=== PATIENT | female | born 1985 | race Two or more races ===

== ENCOUNTER 2020-07-08 21:32 | Emergency (ER) | payer OTHER, MEDICAID, SELFPAY ==
--- NOTE | ~2020-07-08 | XR_ITS ---
EXAMINATION: XR ANKLE, RIGHT CLINICAL INFORMATION: Rule out fracture COMPARISON: None TECHNIQUE: AP, lateral, and mortise views of the right ankle. FINDINGS: No fracture or dislocation seen. The ankle mortise is intact. Medial soft tissue swelling. Small plantar calcaneal osteophyte. Prominent Stieda process. XR/XR ankle RT 2V IMPRESSION: Medial soft tissue swelling but no acute osseous abnormality.
[2020-07-08 22:05] VITALS: BP 120/64; PULSE 92; RESP 18; TEMP 37.2; O2SAT 100; BMI 22.6
--- NOTE | 2020-07-08 22:59 | ED_ITS ---
HPI - Extremity Injury (Lower) General Chief Complaint: Extremity Injury, Lower Stated Complaint: ankle inj Time Seen by Provider: 07/08/20 22:57 Source: patient Mode of arrival: ambulatory Limitations: no limitations History of Present Illness HPI Narrative: 35-year-old healthy female presenting to the ED with right ankle injury. Patient states she was walking outside when she slipped and twisted her right ankle. Since has had severe pain. Denies any head injury or other trauma. Denies any medications prior to arrival. States she was able to ambulate into the ED with severe pain. Due to concern she felt she needed to be seen. complaint: ankle injury Related Data Allergies Allergy/AdvReac Type Severity Reaction Status Date / Time No Known Allergies Allergy Verified 07/08/20 22:58 Review of Systems Review of Systems: Constitutional : No Weight loss, No Fever, No Chills, No Night Sweats, No Fatigue, No Malaise ENT/Mouth : No Hearing loss, No Ear Pain, No Nasal Congestion, No Sinus Pain, No Hoarseness, No sore throat, No Rhinorrhea, No Swallowing Difficulty Eyes: No Eye Pain, No Swelling, No Redness, No Foreign Body, No Discharge, No Vision Changes Cardiovascular : No Chest Pain, No SOB, No Dyspnea on Exertion, No Orthopnea, No Edema, No Palpitations Respiratory : No Cough, No Sputum, No Wheezing, No Smoke Exposure, No Dyspnea Gastrointestinal : No Nausea, No Vomiting, No Diarrhea, No Constipation, No abdominal Pain, No Hematochezia, No Melena Genitourinary : no irregular bleeding, No Dysuria, No Urinary Frequency, No Hematuria, No Urinary Incontinence, No Urgency, No Flank Pain, No Urinary Flow Changes, No Hesitancy Musculoskeletal : right ankle pain, swelling Skin : No Skin Lesions, No rash Neuro : No Weakness, No Numbness, No Paresthesias, No Loss of Consciousness, No Dizziness, No Headache Psych : No Anxiety/Panic, No Depression, No SI/HI/AH/VH, No Social Issues, Heme/Lymph: No Bruising, No Bleeding,No Lymphadenopathy Endocrine : No Polyuria, No Polydipsia, No Temperature Intolerance [facility] Past Medical History Attestation statement: The following information was validated with the patient. Source: old records reviewed and nursing notes reviewed Social History Social History Advance Directives: No Advance Directives Information Provided: No Patient : No Physical Exam Vital Signs: Vital Signs: Last Vital Signs Temp 99.0 F 07/08/20 22:05 Pulse 92 07/08/20 22:05 Resp 18 07/08/20 22:05 BP 120/64 07/08/20 22:05 Pulse Ox 100 07/08/20 22:05 Body Mass Index 22.6 vital signs have been reviewed as normal and appeared to be correct. Blood pressure normal. Heart rate normal. Respiration rate normal. Temperature normal. Oxygen saturation normal. Appearance: Alert. Oriented X3. Mild acute distress. Head: Normal external exam. Normocephalic. Atraumatic. No Keith signs noted. No raccoon eyes noted Eyes: PERRLA. EOMI. Conjunctiva and sclera normal. Eyelids normal. ENT: Moist mucous membranes. No trismus noted. No drooling noted. No muffled voice noted. Neck: Normal inspection. Neck supple. FROM. No meningeal signs. CVS: Pulses normal throughout. Respiratory: No respiratory distress. Painless inspiration. No accessory muscle usage noted Abdomen: Soft and nontender Back: No CVA tenderness. Full range of motion noted. Skin: Skin warm and dry. Normal skin color. Normal skin turgor. No rashes/lesions/lacerations noted. Extremities: Patient with tenderness to the right lateral malleolus with mild edema no overlying erythema or ecchymosis. Good distal pulse. Good capillary refill. No tenderness to the right anterior posterior calf. Normal left lower extremity. Neuro: Oriented X 3. No motor deficit. No sensory deficit. MDM - Extremity Injury (Lower) [facility] Narrative Medical decision making narrative: Patient's vital signs are stable and she is afebrile. Patient presenting in the emergency department with right ankle injury. X-ray obtained in triage without evidence of fracture dislocation. Will place ankle and Renzo wrap give crutches for support and discharged with close outpatient follow-up. Patient comfortable with this plan. Will medicate with Motrin and Tylenol. Will discharge home. No other signs of secondary injury or trauma. Patient is neurovascularly intact. Medical Records Attestation: I reviewed the patient's medical records. Lab Data Attestation: I reviewed the patient's lab results. Discharge Plan Discharge Clinical Impression: Ankle sprain and strain Patient Disposition: Home, Self-Care Instructions: Ankle Sprain (ED) Additional Instructions: You were seen in the emergency department for right ankle injury an x-ray was taken without evidence of fracture. You likely have a severe sprain use crutches as needed for support use Renzo wrap to help with comfort. Continue Motrin and Tylenol for pain control. Follow-up with your doctor in the next 2-3 days if pain persists. Referrals: Physician,Unknown [Primary Care Provider] - 2 days (your pcp) Stand Alone Forms: Work/School Release Print Language: Portuguese
[2020-07-08] MEDS: Acetaminophen 325 MG TABLET 650 MG PO (23:17)
[2020-07-08] MEDS: Ibuprofen 600 MG TABLET PO (23:17)
== END 2020-07-08 23:36 | disposition home or self-care (01) ==
PROVIDERS: Emergency Provider Student in an Organized Health Care Education/Training Program
DX: S93.401A Sprain of unspecified ligament of right ankle, initial encounter (principal); M25.571 Pain in right ankle and joints of right foot; X50.1XXA Overexertion from prolonged static or awkward postures, initial encounter; Y93.9 Activity, unspecified; Y92.9 Unspecified place or not applicable; Y99.9 Unspecified external cause status
CPT/HCPCS: 73600; 99283

== ENCOUNTER 2021-04-17 14:43 | Emergency (ER) | payer MEDICAID, SELFPAY ==
--- NOTE | ~2021-04-17 | US_ITS ---
EXAMINATION: US ABDOMEN LIMITED CLINICAL INFORMATION: Right upper quadrant, CVA, and umbilical tenderness COMPARISON: None TECHNIQUE: Real-time imaging of the right upper quadrant abdominal viscera. FINDINGS: PANCREAS: Normal. LIVER: Normal. The liver is normal in size. The liver contour is normal. Parenchymal echogenicity is normal. No focal hepatic lesion. There is no intrahepatic biliary duct dilatation seen. GALLBLADDER: Echogenic bile or sludge is seen dependently in the gallbladder. No shadowing gallstones. No gallbladder wall thickening or pericholecystic fluid. No reported sonographic Larsen's sign. COMMON BILE DUCT: Normal in caliber measuring 0.2 cm in diameter. RIGHT KIDNEY: There is mild hydronephrosis with dilation of the right proximal ureter and renal pelvis but no calyceal dilationNo renal calculi or focal parenchymal lesions. The kidney measures 12.2 cm in maximum dimension. FREE FLUID: None. US/US abdomen limited IMPRESSION: There is mild right hydronephrosis with dilation of the right proximal ureter and right renal pelvis but no calyceal dilation. No calculi seen but a nonobstructing distal ureteral calculus could give this appearance. Consider urinalysis and correlation with CT as clinically indicated.
--- NOTE | ~2021-04-17 | CT_ITS ---
EXAMINATION: CT ABDOMEN AND PELVIS WITHOUT CONTRAST CLINICAL INFORMATION: Abdominal pain with hydronephrosis on ultrasound COMPARISON: None TECHNIQUE: Multidetector volumetric imaging was performed from the superior aspect of the liver through the pubic symphysis. Sagittal and coronal reformatted images were obtained on the technologist's workstation. This CT examination was performed using dose optimization techniques as appropriate, variously including the following: *Automated exposure control *Adjustment of mA and/or kV according to patient size (this includes techniques or standardized protocols for targeted exams where dose is matched to indication/reason for exam; i.e. extremities or head) *Use of iterative reconstruction technique DLP: 484 mGy-cm FINDINGS: LUNG BASES: The visualized lung bases are unremarkable. LIVER, GALLBLADDER, AND BILIARY TREE: The liver is normal in size, shape, and attenuation. No focal hepatic lesion or biliary ductal dilatation is present. The gallbladder is unremarkable with no evidence of radiopaque gallstones, gallbladder wall thickening, or obvious pericholecystic inflammatory changes. PANCREAS: Unremarkable. SPLEEN: Unremarkable. ADRENAL GLANDS: Unremarkable. KIDNEYS AND URETERS: The right kidney appears unremarkable. No hydronephrosis is seen. The right ureter is not dilated. No stones are seen overlying the course of the right ureter. In the left kidney, 4 calculi are seen to with the extreme lower pole which are punctate measuring 1 mm in size each. And 2 in the midpole measuring 2 and 3 mm in size. No left-sided hydronephrosis is seen. The left ureter is not dilated. No renal masses are detected. BLADDER: Unremarkable. GASTROINTESTINAL TRACT: There is an enteric anastomosis in the right lower quadrant and the patient may be status post partial right colectomy. Please correlate with surgical history. The small and large bowel are otherwise unremarkable. ABDOMINAL WALL: No significant hernia is appreciated. LYMPH NODES: Normal. VASCULAR: Unremarkable. PELVIC VISCERA: An anteverted uterus is present. An abnormal adnexal mass is not seen. No free fluid is seen. OSSEOUS STRUCTURES: Unremarkable. CT/CT abdomen pelvis wo con IMPRESSION: No hydronephrosis is present on either side. There are nonobstructing left intrarenal calculi. No right-sided renal calculi are seen. Fleischner guidelines were followed.
[2021-04-17 14:57] VITALS: BP 117/66; PULSE 77; RESP 18; TEMP 37.1; O2SAT 99; BMI 23.2
[2021-04-17 15:18] LABS: Appearance Urine HAZY; Color Urine YELLOW; Glucose Urine UA NEG (NEG); Leukocyte Esterase Urine NEG (NEG); Nitrite Urine NEG (NEG); Specific Gravity - Urine >= 1.030 (1.005-1.025); UPreg QC Valid YES; Urine Blood NEG (NEG); Urine Ketones 40 MG/DL (NEG); Urine Pregnancy NEGATIVE (NEGATIVE); Urine Protein NEG (NEG-TRACE)
[2021-04-17 15:27] LABS: Anion Gap 13 (12-20); Blood Urea Nitrogen 17 mg/dL (9-16); Calcium 9.4 mg/dL (8.4-10.2); Carbon Dioxide 22 mmol/L (22-29); Chloride 108 mmol/L (96-108); Creatinine Clr Calc Pharmacy 95.8; Estimated Glomerular Filt Rate > 60; Glucose Random 90 mg/dL (60-115); Potassium 4.1 mmol/L (3.3-5.1); Sodium 139 mmol/L (135-145)
[2021-04-17 15:31] LABS: COVID-19 Test Negative (Negative)
--- NOTE | 2021-04-17 15:53 | ED.NAVMDI ---
HPI - Nausea/Vomiting/Diarrhea General Chief complaint: Nausea/Vomiting/Diarrhea Stated complaint: abd pain Time Seen by Provider: 04/17/21 17:09 Source: patient Mode of arrival: ambulatory Limitations: no limitations History of Present Illness HPI Narrative: 36-year-old female presents with abdominal pain nausea and vomiting that started this morning. Pain started at the umbilicus and migrated over to the right side. MD elicited complaint: nausea, vomiting, abdominal pain and flank pain Pertinent past history: abdominal surgery (Appendectomy) Onset (ago): day(s) (1) Description of vomiting: watery Associated nausea: Yes Associated abdominal pain: Yes Location of pain: periumbilical and R flank Radiation: does not radiate Pain consistency: colicky Severity: severe Pain scale (0-10): 9 Quality: stabbing and aching Exacerbating factors: movement and exertion Relieving factors: none Associated symptoms: nausea/vomiting Related Data Previous Rx's Medication Instructions Recorded oxycodone 5 mg tablet 5 mg PO Q8H PRN #7 tab 04/17/21 tamsulosin 0.4 mg capsule (Flomax) 0.4 mg PO DAILY 14 Days #14 cap 04/17/21 Allergies Allergy/AdvReac Type Severity Reaction Status Date / Time No Known Allergies Allergy Verified 07/08/20 22:58 Review of Systems Review of Systems: Constitutional: No Fever, No Chills ENT/Mouth: No sore throat Eyes: No Eye Pain, No Swelling, No Redness Cardiovascular: No Chest Pain, No SOB Respiratory: No Cough, No Sputum, No Wheezing Gastrointestinal: positive Nausea, positive Vomiting, No Diarrhea, positive abdominal pain Genitourinary: No Dysuria, now urinary frequency, now Hematuria, positive Flank Pain, now hesitancy Musculoskeletal: No joint pain, No Myalgias Skin: No Skin Lesions, No rash Neuro: No Weakness, No Numbness, No Headache Psych: No Anxiety/Panic, No Depression Heme/Lymph: No Bruising, No Lymphadenopathy Endocrine: No Polyuria, No Polydipsia Yes all other systems are reviewed and are negative Gastrointestinal: Gastrointestinal: Reports nausea PMFSH Past Medical History Attestation statement: The following information was validated with the patient. Source: old records reviewed Social History Social History Advance Directives: No Advance Directives Information Provided: No Physical Exam Vital Signs: Vital Signs: Last Vital Signs Temp 98.7 F 04/17/21 18:22 Pulse 93 04/17/21 20:00 Resp 15 04/17/21 20:00 BP 110/50 L 04/17/21 20:00 Pulse Ox 98 04/17/21 20:00 BMI result Body Mass Index 23.2 Appearance: Alert. Oriented X3. Moderate distress. Eyes: Pupils equal, round and reactive to light. EOMI. Sclera nonicteric. ENT: Pharynx normal. Dry mucous membranes. Neck: Normal inspection. Neck supple. CVS: Normal heart rate and rhythm. Pulses normal. Respiratory: No respiratory distress. Breath sounds normal. Abdomen: Soft and right upper quadrant, and umbilical tenderness. Positive Larsen's. Negative psoas. No rigidity or distention. Skin: Skin warm and dry. Normal skin color. Normal skin turgor. Extremities: No lower extremity edema. Gait well-balanced well coordinated. Neuro: No motor deficit. No sensory deficit. Cranial nerves 2-12 intact. Course Course Course Narrative: 36-year-old female presents with 1 day of abdominal pain, started at the umbilicus and radiated to the right upper quadrant and to her back. Physical exam indicates positive Larsen's. Patient has had appendectomy in the past. No rebound or rigidity. Plan of care is for abdominal ultrasound to rule out cholelithiasis, cholecystitis. Labs are drawn in the emergency department waiting room, CBC added to the lab panel. 17:50 abdominal ultrasound indicates hydronephrosis within dilated ureter, radiology recommending CT scan for further imaging. Discussed plan with patient, patient agrees to plan for CT scan. Patient's pain is well controlled at this time. CT scan indicates left-sided renal stones. Does not show hydro, pyelo, or any other concerning symptoms. Plan of care is to treat with Flomax, pain management, to have patient follow-up with Urology as an outpatient. Patient verbalized understanding of and agrees to plan of care discharge home. Verbalized understanding of signs and symptoms indicating need for emergent intervention MDM - Nausea/Vomiting/Diarrhea MDM Narrative Medical decision making narrative: Pyelonephritis, nephrolithiasis, colitis Differential Diagnosis Differential diagnosis: Likely dehydration Medical Records Attestation: I reviewed the patient's medical records. Lab Data Attestation: I reviewed the patient's lab results. Result diagrams: 04/17/21 16:09 04/17/21 15:08 Labs: Lab Results 04/17/21 04/17/21 04/17/21 Range/Units 15:08 15:08 15:09 WBC (4.8-10.8) X10*3/uL RBC (4.20-5.50) X10*6/uL Hgb (12.0-16.0) g/dl Hct (37.0-47.0) % MCV (80.0-98.0) fL MCH (27.0-33.0) pg MCHC (31.0-35.0) g/dl RDW (11.0-16.0) % Plt Count (160-400) X10*3/uL MPV (9.4-12.3) fL Immature Gran % (Auto) (0.0-0.4) % Neut % (Auto) (45-73) % Lymph % (Auto) (20-40) % [place] % (Auto) (2-11) % Eos % (Auto) (0-4) % Baso % (Auto) (0-2) % Lymph # (Auto) (1.2-4.9) X10*3/uL [place] # (Auto) (0.1-1.2) X10*3/uL Eos # (Auto) (0.0-0.4) X10*3/uL Baso # (Auto) (0.0-0.2) X10*3/uL Abs Immat Gran (auto) (0.00-0.03) X10*3/uL Absolute Neuts (auto) (2.0-8.3) x10*3/uL Absolute Nucleated RBC (0.0-0.012) X10*3/uL Nucleated RBC % (auto) (0.0-0.2) /100WBC Smear Tech's Comments Sodium 139 (135-145) mmol/L Potassium 4.1 (3.3-5.1) mmol/L Chloride 108 (96-108) mmol/L Carbon Dioxide 22 (22-29) mmol/L Anion Gap 13 (12-20) BUN 17 H (9-16) mg/dL Creatinine 0.76 (0.5-1.4) mg/dL Estim Creat Clear Calc 95.8 Estimated GFR > 60 Random Glucose 90 (60-115) mg/dL Calcium 9.4 (8.4-10.2) mg/dL Total Bilirubin 0.9 (0.0-1.0) mg/dL Direct Bilirubin 0.3 (0.0-0.5) mg/dL AST 16 (5-31) U/L ALT 6 (0-31) U/L Alkaline Phosphatase 63 (39-117) U/L Total Protein 7.4 (6.5-8.0) g/dL Albumin 4.6 (3.5-5.0) g/dL Lipase 23 (8-78) U/L Urine Color YELLOW Urine Appearance HAZY Urine pH 6.0 (5.0-8.0) Ur Specific [place] >= 1.030 H (1.005-1.025) Urine Protein NEG (NEG-TRACE) MG/DL Urine Glucose (UA) NEG (NEG) MG/DL Urine Ketones 40 (NEG) MG/DL Urine Blood NEG (NEG) Urine Nitrite NEG (NEG) Ur Leukocyte Esterase NEG (NEG) Urine Test (NEGATIVE) COVID-19 (JOSE) Negative (Negative) COVID-19 Clin Com See Note 04/17/21 04/17/21 Range/Units 15:09 16:09 WBC 11.5 H (4.8-10.8) X10*3/uL RBC 4.17 L (4.20-5.50) X10*6/uL Hgb 13.0 (12.0-16.0) g/dl Hct 38.7 (37.0-47.0) % MCV 92.8 (80.0-98.0) fL MCH 31.2 (27.0-33.0) pg MCHC 33.6 (31.0-35.0) g/dl RDW 12.1 (11.0-16.0) % Plt Count 255 (160-400) X10*3/uL MPV 9.8 (9.4-12.3) fL Immature Gran % (Auto) 0.3 (0.0-0.4) % Neut % (Auto) 90.7 H (45-73) % Lymph % (Auto) 5.1 L (20-40) % [place] % (Auto) 3.5 (2-11) % Eos % (Auto) 0.3 (0-4) % Baso % (Auto) 0.1 (0-2) % Lymph # (Auto) 0.6 L (1.2-4.9) X10*3/uL [place] # (Auto) 0.4 (0.1-1.2) X10*3/uL Eos # (Auto) 0.0 (0.0-0.4) X10*3/uL Baso # (Auto) 0.0 (0.0-0.2) X10*3/uL Abs Immat Gran (auto) 0.03 (0.00-0.03) X10*3/uL Absolute Neuts (auto) 10.5 H (2.0-8.3) x10*3/uL Absolute Nucleated RBC 0.000 (0.0-0.012) X10*3/uL Nucleated RBC % (auto) 0.0 (0.0-0.2) /100WBC Smear Tech's Comments VERIFIED Sodium (135-145) mmol/L Potassium (3.3-5.1) mmol/L Chloride (96-108) mmol/L Carbon Dioxide (22-29) mmol/L Anion Gap (12-20) BUN (9-16) mg/dL Creatinine (0.5-1.4) mg/dL Estim Creat Clear Calc Estimated GFR Random Glucose (60-115) mg/dL Calcium (8.4-10.2) mg/dL Total Bilirubin (0.0-1.0) mg/dL Direct Bilirubin (0.0-0.5) mg/dL AST (5-31) U/L ALT (0-31) U/L Alkaline Phosphatase (39-117) U/L Total Protein (6.5-8.0) g/dL Albumin (3.5-5.0) g/dL Lipase (8-78) U/L Urine Color Urine Appearance Urine pH (5.0-8.0) Ur Specific [place] (1.005-1.025) Urine Protein (NEG-TRACE) MG/DL Urine Glucose (UA) (NEG) MG/DL Urine Ketones (NEG) MG/DL Urine Blood (NEG) Urine Nitrite (NEG) Ur Leukocyte Esterase (NEG) Urine Test NEGATIVE (NEGATIVE) COVID-19 (JOSE) (Negative) COVID-19 Clin Com Imaging Data Abdominal U/S: Attestation: I personally reviewed and interpreted this imaging study as follows: Radiologist's impression: EXAMINATION: US ABDOMEN LIMITED CLINICAL INFORMATION: Right upper quadrant, CVA, and umbilical tenderness COMPARISON: None TECHNIQUE: Real-time imaging of the right upper quadrant abdominal viscera. FINDINGS: PANCREAS: Normal. LIVER: Normal. The liver is normal in size. The liver contour is normal. Parenchymal echogenicity is normal. No focal hepatic lesion. There is no intrahepatic biliary duct dilatation seen. GALLBLADDER: Echogenic bile or sludge is seen dependently in the gallbladder. No shadowing gallstones. No gallbladder wall thickening or pericholecystic fluid. No reported sonographic Larsen's sign. COMMON BILE DUCT: Normal in caliber measuring 0.2 cm in diameter. RIGHT KIDNEY: There is mild hydronephrosis with dilation of the right proximal ureter and renal pelvis but no calyceal dilationNo renal calculi or focal parenchymal lesions. The kidney measures 12.2 cm in maximum dimension. FREE FLUID: None. US/US abdomen limited IMPRESSION: There is mild right hydronephrosis with dilation of the right proximal ureter and right renal pelvis but no calyceal dilation. No calculi seen but a nonobstructing distal ureteral calculus could give this appearance. ? Consider urinalysis and correlation with CT as clinically indicated. Discharge Plan Discharge Clinical Impression: Kidney stone Patient Disposition: Home, Self-Care Instructions: Kidney Stones (ED) Additional Instructions: You were evaluated for abdominal and flank pain. CT scan of abdomen and pelvis indicates kidney stone on the left side. Please take Flomax daily for the next 14 days. I prescribed oxycodone. This medication is a narcotic and has high risk for addiction and abuse. Do not drive operate machinery while taking. This medication can delay reaction time, increased risk for, cause drowsiness and constipation. Please use MiraLax and her Colace to help prevent constipation. Follow-up urology as needed. I provided you with a referral to Dr. Abbott. You may also follow-up with primary care physician. Thank you for choosing this emergency department for evaluation. Please follow-up with primary care physician as needed. Return to the emergency department for any new, concerning, or worsening symptoms. Prescriptions: New oxycodone 5 mg tablet 5 mg PO Q8H PRN (Reason: pain) Qty: 7 0RF Rx Instructions: Left kidney stones tamsulosin [Flomax] 0.4 mg capsule 0.4 mg PO DAILY 14 Days Qty: 14 0RF Referrals: Renzo Abbott MD [Physician] - 2 days (Left-sided kidney stones) Stand Alone Forms: Dental Emergency Numbers, Work/School Release Interventions: ED Discharge Assessment Last Done: 04/17/21 21:40 Discharge Date/Time: 04/17/21 21:57
[2021-04-17 16:18] VITALS: BP 118/64; PULSE 78; RESP 16; O2SAT 97
[2021-04-17] MEDS: ondansetron HCL 4 MG/2 ML VIAL IVPUSH (16:19)
[2021-04-17] MEDS: 0.9 % Sodium Chloride 1,000 ML 999 ML IVCONT ×2 (16:19→21:21)
[2021-04-17] MEDS: Morphine Sulfate 2 MG/ML CARTRIDGE IVPUSH (16:19)
[2021-04-17 16:22] LABS: Basophils Percent Auto 0.1 % (0-2); Eosinophils Percent Auto 0.3 % (0-4); Hematocrit 38.7 % (37.0-47.0); Imm Gran Abs Auto 0.03 X10*3/uL (0.00-0.03); Imm Gran Pct Auto 0.3 % (0.0-0.4); Lymphocytes Absolute Auto 0.6 X10*3/uL (1.2-4.9); Lymphocytes Percent Auto 5.1 % (20-40); MANUAL DIFF FLAG SCAN; Mean Corpuscular HGB Conc 33.6 g/dl (31.0-35.0); Mean Corpuscular Hemoglobin 31.2 pg (27.0-33.0); Mean Corpuscular Volume 92.8 fL (80.0-98.0); Mean Platelet Volume 9.8 fL (9.4-12.3); Monocytes Absolute Auto 0.4 X10*3/uL (0.1-1.2); Monocytes Percent Auto 3.5 % (2-11); Neutrophils Absolute Auto 10.5 x10*3/uL (2.0-8.3); Neutrophils Percent Auto 90.7 % (45-73); Platelet Count 255 X10*3/uL (160-400); Red Blood Count 4.17 X10*6/uL (4.20-5.50); Red Cell Distribution Width 12.1 % (11.0-16.0); SCAN SMEAR FLAG 1; White Blood Count 11.5 X10*3/uL (4.8-10.8)
[2021-04-17 16:45] LABS: SLIDE REVIEW VERIFIED
[2021-04-17 18:21] LABS: Alanine Aminotransferase 6 U/L (0-31); Albumin Level 4.6 g/dL (3.5-5.0); Alkaline Phosphatase 63 U/L (39-117); Aspartate Amino Transferase 16 U/L (5-31); Bilirubin Direct 0.3 mg/dL (0.0-0.5); Bilirubin Total 0.9 mg/dL (0.0-1.0); Lipase 23 U/L (8-78); Total Protein 7.4 g/dL (6.5-8.0)
[2021-04-17 18:22] VITALS: BP 104/54; PULSE 78; RESP 18; TEMP 37.1; O2SAT 98
[2021-04-17 20:00] VITALS: BP 110/50; PULSE 93; RESP 15; O2SAT 98
[2021-04-17] MEDS: Morphine Sulfate 4 MG/ML CARTRIDGE IVPUSH (21:21)
== END 2021-04-17 21:57 | disposition home or self-care (01) ==
PROVIDERS: Nurse Practitioner Family; Emergency Provider Internal Medicine
DX: N20.0 Calculus of kidney (principal); Z20.822 Contact with and (suspected) exposure to COVID-19
CPT/HCPCS: 36415; 74176; 76705; 80048; 80076; 81003; 81025; 83690; 85025; 87635; 96361; 96374; 96375; 96376; 99284; J2270; J2405

== ENCOUNTER 2021-09-13 11:07 | Emergency (ER) | payer MEDICAID, SELFPAY ==
--- NOTE | ~2021-09-13 | CT_ITS ---
EXAMINATION: CT HEAD WITHOUT CONTRAST CLINICAL INFORMATION: Headache COMPARISON: None. TECHNIQUE: Contiguous axial imaging was performed from the skull base to vertex without intravenous contrast. This CT examination was performed using dose optimization techniques as appropriate, variously including the following: * Automated exposure control * Adjustment of mA and/or kV according to patient size (this includes techniques or standardized protocols for targeted exams where dose is matched to indication/reason for exam; i.e. extremities or head) Use of iterative reconstruction technique DLP: 770 mGy-cm. FINDINGS: There is no evidence of acute intracranial hemorrhage or territorial infarction. No abnormal mass effect or midline shift is seen. Mir to white matter differentiation is well preserved. No extra-axial fluid collections are identified. No hydrocephalus. No significant volume loss. There is no abnormal attenuation within the brain parenchyma. The osseous structures and soft tissues are normal. The mastoid air cells and visualized portions of the paranasal sinuses are well aerated. CT/CT head/brain wo con IMPRESSION: No acute intracranial pathology.
[2021-09-13 11:20] VITALS: BP 121/61; PULSE 78; RESP 16; TEMP 36.7; O2SAT 99; BMI 25.0
[2021-09-13 11:56] LABS: MANUAL DIFF FLAG NO
[2021-09-13 12:05] LABS: Basophils Percent Auto 0.5 % (0-2); Eosinophils Absolute Auto 0.1 X10*3/uL (0.0-0.4); Hematocrit 37.6 % (37.0-47.0); Hemoglobin 12.5 g/dl (12.0-16.0); Imm Gran Abs Auto 0.01 X10*3/uL (0.00-0.03); Imm Gran Pct Auto 0.2 % (0.0-0.4); Lymphocytes Percent Auto 49.8 % (20-40); Mean Corpuscular HGB Conc 33.2 g/dl (31.0-35.0); Mean Corpuscular Hemoglobin 30.6 pg (27.0-33.0); Mean Corpuscular Volume 92.2 fL (80.0-98.0); Mean Platelet Volume 9.7 fL (9.4-12.3); Monocytes Absolute Auto 0.4 X10*3/uL (0.1-1.2); Monocytes Percent Auto 7.1 % (2-11); Neutrophils Absolute Auto 2.5 x10*3/uL (2.0-8.3); Neutrophils Percent Auto 41.4 % (45-73); Platelet Count 291 X10*3/uL (160-400); Red Blood Count 4.08 X10*6/uL (4.20-5.50); Red Cell Distribution Width 12.3 % (11.0-16.0); White Blood Count 5.9 X10*3/uL (4.8-10.8)
[2021-09-13 12:16] LABS: COVID-19 Test Negative (Negative); IDNOW Serial# 16C4AD1C
[2021-09-13 12:36] LABS: Anion Gap 10 (12-20); Blood Urea Nitrogen 15 mg/dL (9-16); Calcium 9.6 mg/dL (8.4-10.2); Carbon Dioxide 28 mmol/L (22-29); Chloride 106 mmol/L (96-108); Creatinine Clr Calc Pharmacy 86.4; Estimated Glomerular Filt Rate > 60; Glucose Random 93 mg/dL (60-115); Potassium 4.4 mmol/L (3.3-5.1); Sodium 140 mmol/L (135-145)
[2021-09-13 19:17] VITALS: BP 126/73; PULSE 62; RESP 16; TEMP 36.7; O2SAT 98
--- NOTE | 2021-09-13 20:33 | ED_ITS ---
HPI - Headache General Chief Complaint: Headache Stated Complaint: headache Time Seen by Provider: 09/13/21 19:12 Source: patient Mode of arrival: ambulatory Limitations: no limitations History of Present Illness HPI Narrative: This is a 36-year-old female presenting to the emergency department with complaints of discomfort to her head. Patient tells me that this has been going on for a week and half unchanged. She tells me this initially started when she was lying in bed and woke up, she says she feels like the top of her head is burning and hurting, has a hard time describing what it feels like. She tells me she also feels like her brain is shaking intermittently, she tells me it is a strange feeling and again has a hard time describing it. Tells me this is never happened to her before. She does not have a history of migraine headaches. She tells me that she feels like she is weak, fatigued and has little energy to do things. Patient denies any sick contacts. She denies vision changes, dizzi ness, chest pain, shortness of breath, nausea, vomiting, issues with ambulation, photophobia. Denies any head trauma. Not on anticoagulation. Related Data Previous Rx's Medication Instructions Recorded oxycodone 5 mg tablet 5 mg PO Q8H PRN pain #7 tabs 04/17/21 tamsulosin 0.4 mg capsule (Flomax) 0.4 mg PO DAILY 14 days #14 caps 04/17/21 Allergies Allergy/AdvReac Type Severity Reaction Status Date / Time No Known Allergies Allergy Verified 09/13/21 11:19 Review of Systems Review of Systems: Constitutional : No Weight loss, No Fever, No Chills, No Fatigue, No Malaise ENT/Mouth : No sore throat, No Rhinorrhea Eyes: No Eye Pain, No Swelling, No Redness Cardiovascular : No Chest Pain, No SOB, No Dyspnea on Exertion, No Orthopnea, No Edema, No Palpitations Respiratory : No Cough, No Sputum, No Wheezing Gastrointestinal : No Nausea, No Vomiting, No Diarrhea, No Constipation, No abdominal Pain, No Hematochezia, No Melena Genitourinary : No Dysuria, No Urinary Frequency, No Hematuria, Musculoskeletal : No joint pain, No Myalgias, No Joint Swelling Skin : No Skin Lesions, No rash Neuro : No Weakness, No Numbness, No Dizziness, + Headache All other systems reviewed and are negative Yes all other systems are reviewed and are negative [facility] Past Medical History Attestation statement: The following information was validated with the patient. Source: old records reviewed and nursing notes reviewed Social History Social History Patient Tobacco Use Status: Current someday Tobacco user Use of substances other than those prescribed or required for medical reasons: No Advance Directives: No Advance Directives Information Provided: No Physical Exam Vital Signs: Vital Signs: Last Vital Signs Temp 98.0 F 09/13/21 23:54 Pulse 60 09/13/21 23:54 Resp 16 09/13/21 19:17 BP 99/58 L 09/13/21 23:54 Pulse Ox 97 09/13/21 23:54 O2 Del Method 09/13/21 23:54 BMI result Body Mass Index 25.0 VSS Appearance: Alert.? Oriented X3.? No acute distress.? Head: Normocephalic, atraumatic, no step-offs or deformities Eyes: Pupils equal, round and reactive to light.? Extraocular movements intact. ENT: Pharynx normal.? Neck: Normal inspection.? Neck supple.? No meningeal signs. CVS: Normal heart rate and rhythm.? Pulses normal.? Respiratory: No respiratory distress.? Breath sounds normal.? Abdomen: Soft and nontender.? Skin: Skin warm and dry.? Normal skin color.? Normal skin turgor.? Extremities: No lower extremity edema.? No calf ttp. 5/5 strength to bilateral upper and lower extremities Neuro: Oriented X 3.? No motor deficit.? No sensory deficit. CN 2-12 intact. Normal figner to nose. 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 Steady tandem gait. Course Reevaluation(s) Reevaluation #1: CBC within normal limits. Chemistry with no acute electrolyte abnormalities. COVID negative. CT of the head with no acute findings. Reflief w/ tordol, Reglan and Benadryl. Time: 00:22 Reevaluation #2: Patient has a nonfocal neuro exam. No signs of posterior stroke. At this time likely a migraine or headache. Advised her to return with new or worsening s ymptoms. Educated her on worrisome signs symptoms and when to return. At this time I feel comfortable with discharge home. Time: 00:23 MDM - Headache MDM Narrative Medical decision making narrative: 1911 36 yo f presents w/ head burning, and feeling like her brain is shaking X 1.5 weeks PE benign. Neuro nonfocal. Cerebellar function intact. Unlikely intracranial hemorrhage, posterior stroke. Likely anxiety or migraine. No signs of meningitis or encephalitis. Plan at this time is basic labs, head CT. Medical Records Attestation: I reviewed the patient's medical records. Lab Data Attestation: I reviewed the patient's lab results. Result diagrams: 09/13/21 11:51 09/13/21 11:50 Labs: Lab Results 09/13/21 09/13/21 09/13/21 Range/Units 11:50 11:50 11:51 WBC 5.9 (4.8-10.8) X10*3/uL RBC 4.08 L (4.20-5.50) X10*6/uL Hgb 12.5 (12.0-16.0) g/dl Hct 37.6 (37.0-47.0) % MCV 92.2 (80.0-98.0) fL MCH 30.6 (27.0-33.0) pg MCHC 33.2 (31.0-35.0) g/dl RDW 12.3 (11.0-16.0) % Plt Count 291 (160-400) X10*3/uL MPV 9.7 (9.4-12.3) fL Immature Gran % (Auto) 0.2 (0.0-0.4) % Neut % (Auto) 41.4 L (45-73) % Lymph % (Auto) 49.8 H (20-40) % [place] % (Auto) 7.1 (2-11) % Eos % (Auto) 1.0 (0-4) % Baso % (Auto) 0.5 (0-2) % Lymph # (Auto) 3.0 (1.2-4.9) X10*3/uL [place] # (Auto) 0.4 (0.1-1.2) X10*3/uL Eos # (Auto) 0.1 (0.0-0.4) X10*3/uL Baso # (Auto) 0.0 (0.0-0.2) X10*3/uL Abs Immat Gran (auto) 0.01 (0.00-0.03) X10*3/uL Absolute Neuts (auto) 2.5 (2.0-8.3) x10*3/uL Absolute Nucleated RBC 0.000 (0.0-0.012) X10*3/uL Nucleated RBC % (auto) 0.0 (0.0-0.2) /100WBC Sodium 140 (135-145) mmol/L Potassium 4.4 (3.3-5.1) mmol/L Chloride 106 (96-108) mmol/L Carbon Dioxide 28 (22-29) mmol/L Anion Gap 10 L (12-20) BUN 15 (9-16) mg/dL Creatinine 0.81 (0.5-1.4) mg/dL Estim Creat Clear Calc 86.4 Estimated GFR > 60 Random Glucose 93 (60-115) mg/dL Calcium 9.6 (8.4-10.2) mg/dL COVID-19 (JOSE) Negative (Negative) COVID-19 Clin Com See Note Critical Care Time Critical Care Time Critical Care Time: No Discharge Plan Discharge Clinical Impression: Headache Patient Disposition: Home, Self-Care Instructions: Acute Headache (ED), General Headache (ED) Additional Instructions: Take your medications as prescribed. If you were prescribed antibiotics today, it is important that you take your medication to their entirety, do not skip any doses, do not finish them early. Follow-up with your primary care provider this week. Return to the emergency department with new or worsening symptoms. Such as fevers, chills, chest pain, shortness of breath, nausea, vomiting, dizziness, headache, vision changes, lethargy In case of emergency call 911 Can take ibuprofen every 6 hours, Tylenol every 4 as needed for pain or di scomfort. Prescriptions: No Action oxycodone 5 mg tablet 5 mg PO Q8H PRN (Reason: pain) Qty: 7 0RF Rx Instructions: Left kidney stones tamsulosin [Flomax] 0.4 mg capsule 0.4 mg PO DAILY 14 Days Qty: 14 0RF Referrals: Physician,Unknown J [Primary Care Provider] - 2 days Stand Alone Forms: Work/School Release
[2021-09-13] MEDS: 0.9 % Sodium Chloride 1,000 ML 999 ML IV (20:50)
[2021-09-13] MEDS: Ketorolac Tromethamine 15 MG/ML VIAL IVPUSH (20:51)
[2021-09-13] MEDS: Metoclopramide HCl 10 MG/2 ML VIAL IVPUSH (23:08)
[2021-09-13] MEDS: diphenhydrAMINE HCL 50 MG/ML VIAL 25 MG IVPUSH (23:08)
[2021-09-13 23:54] VITALS: BP 99/58; PULSE 60; TEMP 36.7; O2SAT 97
== END 2021-09-14 00:51 | disposition home or self-care (01) ==
PROVIDERS: Emergency Provider Internal Medicine
DX: R51.9 Headache, unspecified (principal); Z20.822 Contact with and (suspected) exposure to COVID-19; F17.200 Nicotine dependence, unspecified, uncomplicated
CPT/HCPCS: 70450; 80048; 85025; 87635; 96361; 96374; 96375; 99284; J1200; J1885; J2765

== ENCOUNTER 2022-01-24 11:25 | Emergency (ER) | payer MEDICAID, SELFPAY ==
--- NOTE | ~2022-01-24 | XR_ITS ---
EXAMINATION: LEFT FOOT AND ANKLE CLINICAL INFORMATION: Pain COMPARISON: None TECHNIQUE: 2 views of the left ankle and 3 views of the left foot FINDINGS: There is no evidence of acute fracture or dislocation of the left ankle. Left ankle mortise appears unremarkable. No ankle effusion is appreciated. There is no evidence of acute fracture or dislocation of the left foot. Plantar calcaneal spur is present. XR/XR ankle LT min 3V IMPRESSION: No evidence of acute fracture or dislocation of the left foot or ankle. Left calcaneal plantar spur.
--- NOTE | ~2022-01-24 | XR_ITS ---
EXAMINATION: LEFT FOOT AND ANKLE CLINICAL INFORMATION: Pain COMPARISON: None TECHNIQUE: 2 views of the left ankle and 3 views of the left foot FINDINGS: There is no evidence of acute fracture or dislocation of the left ankle. Left ankle mortise appears unremarkable. No ankle effusion is appreciated. There is no evidence of acute fracture or dislocation of the left foot. Plantar calcaneal spur is present. XR/XR foot LT min 3V IMPRESSION: No evidence of acute fracture or dislocation of the left foot or ankle. Left calcaneal plantar spur.
[2022-01-24 12:31] VITALS: BP 129/67; PULSE 71; RESP 16; TEMP 37.2; O2SAT 99; BMI 25.4
--- NOTE | 2022-01-24 14:24 | ED.LOWEXIN ---
HPI - Extremity Injury (Lower) General Chief Complaint: Extremity Injury, Lower Stated Complaint: L Foot Injury 1 Wk Ago Time Seen by Provider: 01/24/22 13:38 Source: patient Mode of arrival: ambulatory Limitations: no limitations History of Present Illness HPI Narrative: 36-year-old female with no significant medical history presents to the emergency department today for evaluation of her left ankle after rolling her ankle 1 week ago at her home. She states she has had swelling in the ankle which worsens at night after ambulating throughout the day. Her gait has been affected due to discomfort putting weight on the ankle. She denies any bruising or numbness, tingling, or weakness. MD complaint: ankle injury Onset (ago): week(s) (1) Type of Injury: inversion Place: home Severity: moderate Relieving factors: NSAID, cold therapy and immobilization Exacerbating factors: weight bearing Context: walking Associated symptoms: swelling Other symptoms: none Related Data Previous Rx's Medication Instructions Recorded oxycodone 5 mg tablet 5 mg PO Q8H PRN pain #7 tabs 04/17/21 tamsulosin 0.4 mg capsule (Flomax) 0.4 mg PO DAILY 14 days #14 caps 04/17/21 Allergies Allergy/AdvReac Type Severity Reaction Status Date / Time No Known Allergies Allergy Verified 09/13/21 11:19 Review of Systems Review of Systems: Yes all other systems are reviewed and are negative Constitutional: Constitutional: Reports no additional constitutional complaints, Denies chills, Denies fever(s) and Denies headache(s) Eyes: Eyes: Reports no additional eye complaints and Denies change in vision ENT: Reports system reviewed and no additional complaints, except as documented, Reports Normal hearing present and Denies headache(s) Cardiovascular: Cardiovascular: Reports no additional cardiovascular complaints, Denies chest pain and Denies dyspnea Respiratory: Respiratory: Reports no additional respiratory complaints, Denies cough and Denies dyspnea Gastrointestinal: Gastrointestinal: Reports no additional gastrointestinal complaints, Denies constipation, Denies diarrhea, Denies nausea and Denies vomiting Musculoskeletal: Musculoskeletal: Reports no additional musculoskeletal complaints, Reports abnormal gait and Reports joint swelling Integumentary/Breasts: Skin/Breast: Reports system reviewed and no additional complaints, except as docu Neurologic: Reports system reviewed and no additional complaints, except as documented, Reports Normal hearing present, Reports abnormal gait and Denies headache(s) [facility] Past Medical History Attestation statement: The following information was validated with the patient. Source: old records reviewed Social History Social History Patient Tobacco Use Status: Current someday Tobacco user Advance Directives: No Advance Directives Information Provided: Yes Physical Exam Vital Signs: Vital Signs: Last Vital Signs Temp 98.9 F 01/24/22 12:31 Pulse 71 01/24/22 12:31 Resp 16 01/24/22 12:31 BP 129/67 01/24/22 12:31 Pulse Ox 99 01/24/22 12:31 O2 Del Method 01/24/22 12:31 BMI result Body Mass Index 25.4 Const: General: cooperative, alert and awake Nutritional Appearance: well nourished Orientation/consciousness: patient oriented x3 Limitations: no limitations HEENT: Head: Yes normal to inspection, Yes normocephalic and Yes atraumatic Ears: hearing grossly normal bilaterally and external ears normal General nose exam: Normal external nose present Face and sinus: Yes normal facial exam Eyes: General: appearance normal, both eyes and all related structures Visual Donis: normal visual donis by confrontation Alignment and Position: alignment normal Periorbital: periorbital findings normal Eyelids: Yes eyelids normal Conjunctivae: conjunctivae normal Sclerae: sclerae normal Corneas: corneas normal Pupils: Equal, round and reactive pupils present EOM: EOMs intact bilaterally Neck: Neck: Yes normal visual inspection and Yes full ROM Chest: Chest palpation & inspection: normal inspection of the chest Resp: Effort & Inspection: normal respiratory effort and not labored Auscultation: clear to auscultation bilaterally, no crackles, no rhonchi and no wheezes Cardio: Rate: regular rate Rhythm: regular rhythm Skin: General skin exam: no rashes or lesions noted Neuro: General: patient oriented x3 Cranial nerves: Yes Equal, round and reactive pupils present and Yes Normal hearing present Extrem: General: Yes full ROM, Yes capillary refill normal and Yes normal exam except as noted Left lower extremity: normal capillary refill and ankle Details: abnormal to inspection, tenderness, swelling and normal ROM; no warmth, no ecchymosis and no crepitus Medical Decision Making Medical Decision Making MDM Narrative: 36-year-old female with no significant medical history presents to the emergency department today for evaluation of her left ankle after rolling her ankle 1 week ago at her home. X-ray left foot and ankle are negative for fracture or dislocation. An aircast was fitted and applied to the left ankle for comfort in patient educated that she may be weight-bearing as tolerated and to elevate her foot to reduce swelling. Low suspicion for nerve involvement based on neuro exam findings. Physical exam, history, diagnostics discussed with patient with no answer questions at this time. Educated to use [id number] Tylenol and Motrin for pain management. Educated to return to the emergency department with worsening swelling, increased pain, inability to bear weight on the ankle, color changes in the foot, cool temperature of foot, or any other concerning symptom. Recommended to follow-up with your primary care provider for further management and recommendations. Discharge Plan Discharge Clinical Impression: Ankle sprain and strain Patient Disposition: Home, Self-Care Instructions: Crutch Instructions (ED), Sprain (ED), R.I.C.E. Treatment (ED), Ice Pack Application (ED), Ankle Strain (ED) Additional Instructions: Your x-rays are negative for left foot or ankle fracture or dislocation. You have been provided with an Aircast for the left ankle for comfort. You may put weight on your left foot/ankle as tolerated. Recommended to elevate your foot to assist in swelling reduction. Please use [id number] Tylenol and Motrin (as per packaging) for pain management. Please return to the emergency department with worsening swelling, increased pain, inability to bear weight on the ankle, or any other concerning symptom. Recommended to follow-up with your primary care provider for further management and recommendations. Prescriptions: No Action oxycodone 5 mg tablet 5 mg PO Q8H PRN (Reason: pain) Qty: 7 0RF Rx Instructions: Left kidney stones tamsulosin [Flomax] 0.4 mg capsule 0.4 mg PO DAILY 14 Days Qty: 14 0RF Referrals: [facility] [place] Family Medicine [Provider Group] [facility] [Provider Group] [facility] [place] [Provider Group] Interventions: ED Discharge Assessment Last Done: 01/24/22 14:32 Discharge Date/Time: 01/24/22 14:45 Print Language: Pashto
== END 2022-01-24 14:45 | disposition home or self-care (01) ==
PROVIDERS: Emergency Provider Emergency Medicine Emergency Medical Services
DX: S93.402A Sprain of unspecified ligament of left ankle, initial encounter (principal); M25.572 Pain in left ankle and joints of left foot; W50.2XXA Accidental twist by another person, initial encounter; Y93.9 Activity, unspecified; Y92.9 Unspecified place or not applicable; Y99.9 Unspecified external cause status; Z79.899 Other long term (current) drug therapy
CPT/HCPCS: 73610; 73630; 99283

== ENCOUNTER 2022-02-15 19:07 | Emergency (ER) | payer MEDICAID, SELFPAY ==
--- NOTE | ~2022-02-15 | CT_ITS ---
EXAMINATION: CT ABDOMEN AND PELVIS WITH CONTRAST CLINICAL INFORMATION: Left lower quadrant pain COMPARISON: None TECHNIQUE: Multidetector volumetric images were obtained from the superior aspect of the liver through the pubic symphysis following administration 85 mL of Omnipaque 350 intravenous contrast. Sagittal and coronal reformatted images were obtained on the technologist's workstation. Oral contrast: No This CT examination was performed using dose optimization techniques as appropriate, variously including the following: *Automated exposure control *Adjustment of mA and/or kV according to patient size (this includes techniques or standardized protocols for targeted exams where dose is matched to indication/reason for exam; i.e. extremities or head) *Use of iterative reconstruction technique DLP: 557 mGy-cm FINDINGS: LUNG BASES: The visualized lung bases are unremarkable. LIVER, GALLBLADDER, AND BILIARY TREE: The liver is normal in size, shape, and attenuation. No focal hepatic lesion or biliary ductal dilatation is present. The gallbladder is unremarkable with no evidence of radiopaque gallstones, gallbladder wall thickening, or obvious pericholecystic inflammatory changes. PANCREAS: Unremarkable. SPLEEN: Unremarkable. ADRENAL GLANDS: Unremarkable. KIDNEYS AND URETERS: The kidneys are normal in size, shape, and attenuation. Stable left subtentorial calcified with 2 stones in the interpolar region measuring 4 mm and 2 mm, linear in appearance, and 2 punctate 1 mm calculi in the lower pole left kidney. No urinary calculi in the right kidney. No hydronephrosis, hydroureter, or ureteral calculi seen. No perinephric stranding. BLADDER: Unremarkable. GASTROINTESTINAL TRACT: The small and large bowel are unremarkable. Appendectomy. ABDOMINAL WALL: No significant hernia is appreciated. LYMPH NODES: Normal. VASCULAR: Unremarkable. PELVIC VISCERA: Unremarkable. OSSEOUS STRUCTURES: Unremarkable. CT/CT abdomen pelvis w IV con IMPRESSION: * No potential etiology for the patient's left lower quadrant pain is identified. * Stable left nonobstructive intrarenal calculi. Fleischner guidelines were followed.
[2022-02-15 19:32] VITALS: BP 118/62; PULSE 80; RESP 20; TEMP 36.6; O2SAT 100; BMI 26.6
--- NOTE | 2022-02-15 19:33 | ED_ITS ---
HPI - Abdominal Pain General Chief Complaint: Abdominal Pain Stated Complaint: left side and lower back pain Time Seen by Provider: 02/16/22 00:22 Related Data Previous Rx's Medication Instructions Recorded oxycodone 5 mg tablet 5 mg PO Q8H PRN pain #7 tabs 04/17/21 tamsulosin 0.4 mg capsule (Flomax) 0.4 mg PO DAILY 14 days #14 caps 04/17/21 Allergies Allergy/AdvReac Type Severity Reaction Status Date / Time No Known Allergies Allergy Verified 02/15/22 19:36 [facility] Social History Social History Patient Tobacco Use Status: Current someday Tobacco user Advance Directives: No Advance Directives Information Provided: No Physical Exam ED Vital Signs: Vital Signs - 24 hr 02/15/22 19:32 02/16/22 00:35 Temperature 97.9 F 97.7 F Pulse Rate 80 69 Respiratory Rate 20 18 Blood Pressure 118/62 119/60 Pulse Oximetry 100 99 Oxygen Delivery Method Room Air Room Air BMI result Body Mass Index 26.6 Course Course Course Narrative: This is a rapid medical exam. Defer additional HPI, ROS, PE to primary provider. 36 yo female with no PMH of here with intermittent left sided abdominal pain x several weeks. No urinary symptoms, vomiting, diarrhea, fevers, chills. Will check labs, UA, ur preg. VSS Medical Decision Making Lab Data Result Diagrams: 02/15/22 19:55 02/15/22 19:54 Labs: Lab Results 02/15/22 02/15/22 02/15/22 Range/Units 19:54 19:55 20:00 WBC 9.7 (4.8-10.8) X10*3/uL RBC 3.98 L (4.20-5.50) X10*6/uL Hgb 11.9 L (12.0-16.0) g/dl Hct 37.0 (37.0-47.0) % MCV 93.0 (80.0-98.0) fL MCH 29.9 (27.0-33.0) pg MCHC 32.2 (31.0-35.0) g/dl RDW 12.4 (11.0-16.0) % Plt Count 334 (160-400) X10*3/uL MPV 9.9 (9.4-12.3) fL Immature Gran % (Auto) 0.1 (0.0-0.4) % Neut % (Auto) 48.5 (45-73) % Lymph % (Auto) 44.1 H (20-40) % [place] % (Auto) 6.1 (2-11) % Eos % (Auto) 0.8 (0-4) % Baso % (Auto) 0.4 (0-2) % Lymph # (Auto) 4.3 (1.2-4.9) X10*3/uL [place] # (Auto) 0.6 (0.1-1.2) X10*3/uL Eos # (Auto) 0.1 (0.0-0.4) X10*3/uL Baso # (Auto) 0.0 (0.0-0.2) X10*3/uL Abs Immat Gran (auto) 0.01 (0.00-0.03) X10*3/uL Absolute Neuts (auto) 4.7 (2.0-8.3) x10*3/uL Absolute Nucleated RBC 0.000 (0.0-0.012) X10*3/uL Nucleated RBC % (auto) 0.0 (0.0-0.2) /100WBC Sodium 139 (135-145) mmol/L Potassium 4.5 (3.3-5.1) mmol/L Chloride 105 (96-108) mmol/L Carbon Dioxide 29 (22-29) mmol/L Anion Gap 10 L (12-20) BUN 13 (9-16) mg/dL Creatinine 0.77 (0.5-1.4) mg/dL Estim Creat Clear Calc 100.8 Estimated GFR > 60 Random Glucose 80 (60-115) mg/dL Calcium 9.6 (8.4-10.2) mg/dL Total Bilirubin 0.4 (0.0-1.0) mg/dL Direct Bilirubin < 0.2 (0.0-0.5) mg/dL AST 16 (5-31) U/L ALT < 6 (0-31) U/L Alkaline Phosphatase 88 D (39-117) U/L Total Protein 7.1 (6.5-8.0) g/dL Albumin 4.4 (3.5-5.0) g/dL Lipase 50 (8-78) U/L Urine Color Yellow Urine Appearance Clear Urine pH 5.5 (5.0-9.0) Ur Specific [place] >= 1.030 H (1.005-1.025) Urine Protein Trace (Neg-Trace) mg/dL Urine Glucose (UA) Negative (Negative) mg/dL Urine Ketones Negative (Negative) mg/dL Urine Blood Negative (Negative) Urine Nitrite Negative (Negative) Ur Leukocyte Esterase Negative (Negative) Urine Test (NEGATIVE) 02/15/22 Range/Units 20:00 WBC (4.8-10.8) X10*3/uL RBC (4.20-5.50) X10*6/uL Hgb (12.0-16.0) g/dl Hct (37.0-47.0) % MCV (80.0-98.0) fL MCH (27.0-33.0) pg MCHC (31.0-35.0) g/dl RDW (11.0-16.0) % Plt Count (160-400) X10*3/uL MPV (9.4-12.3) fL Immature Gran % (Auto) (0.0-0.4) % Neut % (Auto) (45-73) % Lymph % (Auto) (20-40) % [place] % (Auto) (2-11) % Eos % (Auto) (0-4) % Baso % (Auto) (0-2) % Lymph # (Auto) (1.2-4.9) X10*3/uL [place] # (Auto) (0.1-1.2) X10*3/uL Eos # (Auto) (0.0-0.4) X10*3/uL Baso # (Auto) (0.0-0.2) X10*3/uL Abs Immat Gran (auto) (0.00-0.03) X10*3/uL Absolute Neuts (auto) (2.0-8.3) x10*3/uL Absolute Nucleated RBC (0.0-0.012) X10*3/uL Nucleated RBC % (auto) (0.0-0.2) /100WBC Sodium (135-145) mmol/L Potassium (3.3-5.1) mmol/L Chloride (96-108) mmol/L Carbon Dioxide (22-29) mmol/L Anion Gap (12-20) BUN (9-16) mg/dL Creatinine (0.5-1.4) mg/dL Estim Creat Clear Calc Estimated GFR Random Glucose (60-115) mg/dL Calcium (8.4-10.2) mg/dL Total Bilirubin (0.0-1.0) mg/dL Direct Bilirubin (0.0-0.5) mg/dL AST (5-31) U/L ALT (0-31) U/L Alkaline Phosphatase (39-117) U/L Total Protein (6.5-8.0) g/dL Albumin (3.5-5.0) g/dL Lipase (8-78) U/L Urine Color Urine Appearance Urine pH (5.0-9.0) Ur Specific [place] (1.005-1.025) Urine Protein (Neg-Trace) mg/dL Urine Glucose (UA) (Negative) mg/dL Urine Ketones (Negative) mg/dL Urine Blood (Negative) Urine Nitrite (Negative) Ur Leukocyte Esterase (Negative) Urine Test NEGATIVE (NEGATIVE) Medications Administered Discontinued Medications Generic Name Dose Route Start Last Admin Trade Name Oumar PRN Reason Stop Dose Admin Iohexol 85 ml 02/16/22 01:31 02/16/22 01:32 Iohexol 350 Mg/Ml 100 Ml Infus..Btl IV 02/16/22 01:32 85 ml ONCE ONE Administration Ketorolac Tromethamine 30 mg 02/16/22 00:51 02/16/22 02:21 Ketorolac Tromethamine 30 Mg/Ml Vial IM 02/16/22 00:52 30 mg ONCE ONE Administration Discharge Plan Discharge Clinical Impression: LUQ pain, Nausea Patient Disposition: Still a Patient Instructions: Acute Nausea and Vomiting (ED), Abdominal Pain (ED) Additional Instructions: Take your medications as prescribed. If you were prescribed antibiotics today, it is important that you take your medication to their entirety, do not skip any doses, do not finish them early. Follow-up with your primary care provider this week. [facility]-up [facility]. Return to the emergency department with new or worsening symptoms. Such as fevers, chills, chest pain, shortness of breath, nausea, vomiting, dizziness, headache, vision changes, lethargy In case of emergency call 911 Prescriptions: No Action oxycodone 5 mg tablet 5 mg PO Q8H PRN (Reason: pain) Qty: 7 0RF Rx Instructions: Left kidney stones tamsulosin [Flomax] 0.4 mg capsule 0.4 mg PO DAILY 14 Days Qty: 14 0RF Referrals: [facility] [place] [facility] [Provider Group] - 1 week [place],[facility] [Primary Care Provider] - 2 days Stand Alone Forms: Work/School Release Interventions: ED Discharge Assessment Last Done: 02/16/22 03:10 Discharge Date/Time: 02/16/22 03:11
[2022-02-15 20:06] LABS: MANUAL DIFF FLAG NO
[2022-02-15 20:08] LABS: Basophils Percent Auto 0.4 % (0-2); Eosinophils Absolute Auto 0.1 X10*3/uL (0.0-0.4); Eosinophils Percent Auto 0.8 % (0-4); Hemoglobin 11.9 g/dl (12.0-16.0); Imm Gran Abs Auto 0.01 X10*3/uL (0.00-0.03); Imm Gran Pct Auto 0.1 % (0.0-0.4); Lymphocytes Absolute Auto 4.3 X10*3/uL (1.2-4.9); Lymphocytes Percent Auto 44.1 % (20-40); Mean Corpuscular HGB Conc 32.2 g/dl (31.0-35.0); Mean Corpuscular Hemoglobin 29.9 pg (27.0-33.0); Mean Platelet Volume 9.9 fL (9.4-12.3); Monocytes Absolute Auto 0.6 X10*3/uL (0.1-1.2); Monocytes Percent Auto 6.1 % (2-11); Neutrophils Absolute Auto 4.7 x10*3/uL (2.0-8.3); Neutrophils Percent Auto 48.5 % (45-73); Platelet Count 334 X10*3/uL (160-400); Red Blood Count 3.98 X10*6/uL (4.20-5.50); Red Cell Distribution Width 12.4 % (11.0-16.0); White Blood Count 9.7 X10*3/uL (4.8-10.8)
[2022-02-15 20:10] LABS: Appearance Urine Clear; Color Urine Yellow; Glucose Urine UA Negative (Negative); Leukocyte Esterase Urine Negative (Negative); Nitrite Urine Negative (Negative); PH 5.5 (5.0-9.0); Specific Gravity - Urine >= 1.030 (1.005-1.025); Urine Blood Negative (Negative); Urine Ketones Negative (Negative); Urine Protein Trace mg/dL (Neg-Trace)
[2022-02-15 20:12] LABS: UPreg QC Valid YES; Urine Pregnancy NEGATIVE (NEGATIVE)
[2022-02-15 20:25] LABS: Alanine Aminotransferase < 6 U/L (0-31); Albumin Level 4.4 g/dL (3.5-5.0); Alkaline Phosphatase 88 U/L (39-117); Anion Gap 10 (12-20); Aspartate Amino Transferase 16 U/L (5-31); Bilirubin Direct < 0.2 mg/dL (0.0-0.5); Bilirubin Total 0.4 mg/dL (0.0-1.0); Blood Urea Nitrogen 13 mg/dL (9-16); Calcium 9.6 mg/dL (8.4-10.2); Carbon Dioxide 29 mmol/L (22-29); Chloride 105 mmol/L (96-108); Creatinine Clr Calc Pharmacy 100.8; Estimated Glomerular Filt Rate > 60; Glucose Random 80 mg/dL (60-115); Lipase 50 U/L (8-78); Potassium 4.5 mmol/L (3.3-5.1); Sodium 139 mmol/L (135-145); Total Protein 7.1 g/dL (6.5-8.0)
--- NOTE | 2022-02-16 00:30 | ED.ABDPAIN ---
HPI - Abdominal Pain General Chief Complaint: Abdominal Pain Stated Complaint: left side and lower back pain Time Seen by Provider: 02/16/22 00:22 Source: patient Mode of arrival: ambulatory Limitations: no limitations History of Present Illness HPI narrative: This is a 36-year-old female history of kidney stones presenting to the emergency department complaints of left upper quadrant pain that radiates to the left flank area times a few weeks worsening over the past day. Patient tells me she has intermittent severe sharp pain that is stabbing in nature to the left upper quadrant, with some associated nausea however no vomiting. Patient tells me that this morning she was feeling dizzy however this is now resolved. Patient eating and drinking well without difficulty. Patient denies changes in urination, changes in bowel habits, fevers, chills, chest pain, shortness of breath, vomiting, hematochezia, hematemesis, weakness, headache, vision changes. Related Data Previous Rx's Medication Instructions Recorded oxycodone 5 mg tablet 5 mg PO Q8H PRN pain #7 tabs 04/17/21 tamsulosin 0.4 mg capsule (Flomax) 0.4 mg PO DAILY 14 days #14 caps 04/17/21 Allergies Allergy/AdvReac Type Severity Reaction Status Date / Time No Known Allergies Allergy Verified 02/15/22 19:36 Review of Systems Review of Systems Constitutional : No Weight loss, No Fever, No Chills, No Fatigue, No Malaise ENT/Mouth : No sore throat, No Rhinorrhea Eyes: No Eye Pain, No Swelling, No Redness Cardiovascular : No Chest Pain, No SOB, No Dyspnea on Exertion, No Orthopnea, No Edema, No Palpitations Respiratory : No Cough, No Sputum, No Wheezing Gastrointestinal : + Nausea, No Vomiting, No Diarrhea, No Constipation, + abdominal Pain, No Hematochezia, No Melena Genitourinary : No Dysuria, No Urinary Frequency, No Hematuria, Musculoskeletal : No joint pain, No Myalgias, No Joint Swelling Skin : No Skin Lesions, No rash Neuro : No Weakness, No Numbness, No Dizziness, No Headache Psych : No Anxiety/Panic, No Depression All other systems reviewed and are negative Yes all other systems are reviewed and are negative FORMERLY [facility], [facility] Past Medical History Attestation statement: The following information was validated with the patient. Source: old records reviewed and nursing notes reviewed Social History Social History Patient Tobacco Use Status: Current someday Tobacco user Advance Directives: No Advance Directives Information Provided: No Physical Exam ED Vital Signs: Vital Signs - 24 hr 02/15/22 19:32 02/16/22 00:35 Temperature 97.9 F 97.7 F Pulse Rate 80 69 Respiratory Rate 20 18 Blood Pressure 118/62 119/60 Pulse Oximetry 100 99 Oxygen Delivery Method Room Air Room Air BMI result Body Mass Index 26.6 Vital signs stable Appearance: Alert.? Oriented X3.? No acute distress.? Head: Normocephalic, atraumatic, no step-offs or deformities Eyes: Pupils equal, round and reactive to light.? ENT: Pharynx normal.? Neck: Normal inspection.? Neck supple.? CVS: Normal heart rate and rhythm.? Pulses normal.? Respiratory: No respiratory distress.? Breath sounds normal.? Abdomen: Soft and tenderness to left upper quadrant..? Skin: Skin warm and dry.? Normal skin color.? Normal skin turgor.? Extremities: No lower extremity edema.? No calf ttp. 5/5 strength to bilateral upper and lower extremities Back: No CVA tenderness bilaterally Neuro: Oriented X 3.? No motor deficit.? No sensory deficit. CN 2-12 intact Course Reevaluation(s) Reevaluation #1: CBC with no acute findings. Chemistry with no electrolyte abnormalities requiring intervention. Normal lipase. Urine negative. UA without infection. Pending CT of the abdomen and pelvis. Time: 00:35 Reevaluation #2: Signout given to Dr. Llanes pending imaging and reeval. Time: 01:28 Medical Decision Making Medical Decision Making [facility] Narrative: 0034 36-year-old female presents with left upper quadrant pain that radiates to left flank times a few weeks worsening today. Associated nausea. Physical exam with left upper quadrant tenderness on palpation. Normoactive bowel sounds. Had no CVA tenderness. Concerns for possible kidney stones. Unlikely acute abdomen, pancreatitis, appendicitis, cholecystitis. History and physical not consistent with ovarian torsion, ectopic . No signs of peritonitis. Plan labs, imaging, urine, urine . Lab Data Result Diagrams: 02/15/22 19:55 02/15/22 19:54 Labs: Lab Results 02/15/22 02/15/22 02/15/22 Range/Units 19:54 19:55 20:00 WBC 9.7 (4.8-10.8) X10*3/uL RBC 3.98 L (4.20-5.50) X10*6/uL Hgb 11.9 L (12.0-16.0) g/dl Hct 37.0 (37.0-47.0) % MCV 93.0 (80.0-98.0) fL MCH 29.9 (27.0-33.0) pg MCHC 32.2 (31.0-35.0) g/dl RDW 12.4 (11.0-16.0) % Plt Count 334 (160-400) X10*3/uL MPV 9.9 (9.4-12.3) fL Immature Gran % (Auto) 0.1 (0.0-0.4) % Neut % (Auto) 48.5 (45-73) % Lymph % (Auto) 44.1 H (20-40) % [place] % (Auto) 6.1 (2-11) % Eos % (Auto) 0.8 (0-4) % Baso % (Auto) 0.4 (0-2) % Lymph # (Auto) 4.3 (1.2-4.9) X10*3/uL [place] # (Auto) 0.6 (0.1-1.2) X10*3/uL Eos # (Auto) 0.1 (0.0-0.4) X10*3/uL Baso # (Auto) 0.0 (0.0-0.2) X10*3/uL Abs Immat Gran (auto) 0.01 (0.00-0.03) X10*3/uL Absolute Neuts (auto) 4.7 (2.0-8.3) x10*3/uL Absolute Nucleated RBC 0.000 (0.0-0.012) X10*3/uL Nucleated RBC % (auto) 0.0 (0.0-0.2) /100WBC Sodium 139 (135-145) mmol/L Potassium 4.5 (3.3-5.1) mmol/L Chloride 105 (96-108) mmol/L Carbon Dioxide 29 (22-29) mmol/L Anion Gap 10 L (12-20) BUN 13 (9-16) mg/dL Creatinine 0.77 (0.5-1.4) mg/dL Estim Creat Clear Calc 100.8 Estimated GFR > 60 Random Glucose 80 (60-115) mg/dL Calcium 9.6 (8.4-10.2) mg/dL Total Bilirubin 0.4 (0.0-1.0) mg/dL Direct Bilirubin < 0.2 (0.0-0.5) mg/dL AST 16 (5-31) U/L ALT < 6 (0-31) U/L Alkaline Phosphatase 88 D (39-117) U/L Total Protein 7.1 (6.5-8.0) g/dL Albumin 4.4 (3.5-5.0) g/dL Lipase 50 (8-78) U/L Urine Color Yellow Urine Appearance Clear Urine pH 5.5 (5.0-9.0) Ur Specific [place] >= 1.030 H (1.005-1.025) Urine Protein Trace (Neg-Trace) mg/dL Urine Glucose (UA) Negative (Negative) mg/dL Urine Ketones Negative (Negative) mg/dL Urine Blood Negative (Negative) Urine Nitrite Negative (Negative) Ur Leukocyte Esterase Negative (Negative) Urine Test (NEGATIVE) 02/15/22 Range/Units 20:00 WBC (4.8-10.8) X10*3/uL RBC (4.20-5.50) X10*6/uL Hgb (12.0-16.0) g/dl Hct (37.0-47.0) % MCV (80.0-98.0) fL MCH (27.0-33.0) pg MCHC (31.0-35.0) g/dl RDW (11.0-16.0) % Plt Count (160-400) X10*3/uL MPV (9.4-12.3) fL Immature Gran % (Auto) (0.0-0.4) % Neut % (Auto) (45-73) % Lymph % (Auto) (20-40) % [place] % (Auto) (2-11) % Eos % (Auto) (0-4) % Baso % (Auto) (0-2) % Lymph # (Auto) (1.2-4.9) X10*3/uL [place] # (Auto) (0.1-1.2) X10*3/uL Eos # (Auto) (0.0-0.4) X10*3/uL Baso # (Auto) (0.0-0.2) X10*3/uL Abs Immat Gran (auto) (0.00-0.03) X10*3/uL Absolute Neuts (auto) (2.0-8.3) x10*3/uL Absolute Nucleated RBC (0.0-0.012) X10*3/uL Nucleated RBC % (auto) (0.0-0.2) /100WBC Sodium (135-145) mmol/L Potassium (3.3-5.1) mmol/L Chloride (96-108) mmol/L Carbon Dioxide (22-29) mmol/L Anion Gap (12-20) BUN (9-16) mg/dL Creatinine (0.5-1.4) mg/dL Estim Creat Clear Calc Estimated GFR Random Glucose (60-115) mg/dL Calcium (8.4-10.2) mg/dL Total Bilirubin (0.0-1.0) mg/dL Direct Bilirubin (0.0-0.5) mg/dL AST (5-31) U/L ALT (0-31) U/L Alkaline Phosphatase (39-117) U/L Total Protein (6.5-8.0) g/dL Albumin (3.5-5.0) g/dL Lipase (8-78) U/L Urine Color Urine Appearance Urine pH (5.0-9.0) Ur Specific [place] (1.005-1.025) Urine Protein (Neg-Trace) mg/dL Urine Glucose (UA) (Negative) mg/dL Urine Ketones (Negative) mg/dL Urine Blood (Negative) Urine Nitrite (Negative) Ur Leukocyte Esterase (Negative) Urine Test NEGATIVE (NEGATIVE) Critical Care Time Critical Care Time Critical Care Time: No Discharge Plan Discharge Clinical Impression: LUQ pain, Nausea Patient Disposition: Still a Patient Instructions: Acute Nausea and Vomiting (ED), Abdominal Pain (ED) Additional Instructions: Take your medications as prescribed. If you were prescribed antibiotics today, it is important that you take your medication to their entirety, do not skip any doses, do not finish them early. Follow-up with your primary care provider this week. Follow-up with gastroenterology. Return to the emergency department with new or worsening symptoms. Such as fevers, chills, chest pain, shortness of breath, nausea, vomiting, dizziness, headache, vision changes, lethargy In case of emergency call 911 Prescriptions: No Action oxycodone 5 mg tablet 5 mg PO Q8H PRN (Reason: pain) Qty: 7 0RF Rx Instructions: Left kidney stones tamsulosin [Flomax] 0.4 mg capsule 0.4 mg PO DAILY 14 Days Qty: 14 0RF Referrals: [facility] [place] [facility] [Provider Group] - 1 week [facility] [Primary Care Provider] - 2 days Stand Alone Forms: Work/School Release
[2022-02-16 00:35] VITALS: BP 119/60; PULSE 69; RESP 18; TEMP 36.5; O2SAT 99
[2022-02-16] MEDS: iohexoL 350 MG/ML 100 ML INFUS..BTL 85 ML IV (01:32)
--- NOTE | 2022-02-16 01:50 | PC.NURSE ---
Pt. has order for IM Ketorolac. Spoke to Ivone and she will change to IV as the pt. does have IV access.
[2022-02-16] MEDS: Ketorolac Tromethamine 30 MG/ML VIAL IM (02:21)
== END 2022-02-16 03:11 | disposition still patient (30) ==
PROVIDERS: Nurse Practitioner Family; Emergency Provider Emergency Medicine
DX: R10.12 Left upper quadrant pain (principal); R11.0 Nausea; Z87.442 Personal history of urinary calculi; F17.200 Nicotine dependence, unspecified, uncomplicated
CPT/HCPCS: 36415; 74177; 80048; 80076; 81003; 81025; 83690; 85025; 96372; 99284; J1885; Q9967

== ENCOUNTER 2022-03-17 19:21 | Emergency (ER) | payer MEDICAID, SELFPAY ==
--- NOTE | ~2022-03-17 | CT_ITS ---
EXAMINATION: CT ABDOMEN AND PELVIS WITH CONTRAST CLINICAL INFORMATION: Abdominal pain, history of appendectomy COMPARISON: CT abdomen pelvis 02/16/2022 TECHNIQUE: Multidetector volumetric images were obtained from the superior aspect of the liver through the pubic symphysis following administration 85 mL of Omnipaque 350 intravenous contrast. Sagittal and coronal reformatted images were obtained on the technologist's workstation. Oral contrast: No This CT examination was performed using dose optimization techniques as appropriate, variously including the following: *Automated exposure control *Adjustment of mA and/or kV according to patient size (this includes techniques or standardized protocols for targeted exams where dose is matched to indication/reason for exam; i.e. extremities or head) *Use of iterative reconstruction technique DLP: 503 mGy-cm FINDINGS: LUNG BASES: Calcified granuloma in the right lung base. ABDOMINAL AND PELVIC WALL: Unremarkable. LIVER AND BILIARY TREE: Unremarkable. GALLBLADDER: Unremarkable. PANCREAS: Unremarkable. SPLEEN: Unremarkable. ADRENAL GLANDS: Unremarkable. KIDNEYS AND URETERS: Nonobstructing left renal stones measuring up to 3 mm. GASTROINTESTINAL TRACT: Appendix is surgically absent. Colonic diverticulosis without focal inflammatory changes to suggest diverticulitis. VASCULAR: Circumaortic left renal vein. LYMPH NODES/PERITONEUM: No lymphadenopathy. FREE FLUID: Small volume of mildly complex pelvic free fluid. BLADDER: Unremarkable. PELVIC VISCERA: Unremarkable. OSSEOUS STRUCTURES: Unremarkable. CT/CT abdomen pelvis w IV con IMPRESSION: Small volume of mildly complex free fluid in the pelvis, nonspecific but could be commonly seen in the setting of ruptured hemorrhagic ovarian cyst. Nonobstructing left renal stones measuring up to 3 mm.
[2022-03-17 19:23] VITALS: BP 134/82; PULSE 95; RESP 20; O2SAT 97; BMI 23.3
--- NOTE | 2022-03-17 19:24 | ED_ITS ---
HPI - General Adult General Chief complaint: Abdominal Pain <HENRIQUE Seth - Last Filed: 03/17/22 19:25> Stated complaint: Lower Abdominal Pain <HENRIQUE Seth - Last Filed: 03/17/22 19:25> Time Seen by Provider: 03/17/22 20:00 <HENRIQUE Seth - Last Filed: 03/17/22 19:25> Source: patient <Emilee Mancuso NP - Last Filed: 03/17/22 23:36> Mode of arrival: ambulatory <Emilee Mancuso NP - Last Filed: 03/17/22 23:36> Limitations: no limitations <Emilee Mancuso NP - Last Filed: 03/17/22 23:36> History of Present Illness HPI narrative: 37-year-old female presents with 3 hours of lower abdominal burning pain accompanied by nausea and vomiting. Patient states that she is unable to stand up straight. She does not describe any vaginal bleeding, and denies . She does have a history of kidney stones and appendectomy. <Emilee Mancuso NP - Last Filed: 03/17/22 23:36> Onset (ago): hour(s) (3) <Emilee Mancuso NP - Last Filed: 03/17/22 23:36> Location: abdomen <Emilee Mancuso NP - Last Filed: 03/17/22 23:36> Radiation: non-radiation <Emilee Mancuso NP - Last Filed: 03/17/22 23:36> Severity: moderate <Emilee Mancuso NP - Last Filed: 03/17/22 23:36> Severity scale (1-10): 8 <Emilee Mancuso NP - Last Filed: 03/17/22 23:36> Quality: burning <Emilee Mancuso NP - Last Filed: 03/17/22 23:36> Pain Consistency: constant <Emilee Mancuso NP - Last Filed: 03/17/22 23:36> Relieving factors: none <Emilee Mancuso NP - Last Filed: 03/17/22 23:36> Exacerbating factors: movement <Emilee Mancuso NP - Last Filed: 03/17/22 23:36> Associated symptoms: nausea/vomiting <Emilee Mancuso NP - Last Filed: 03/17/22 23:36> Treatments prior to arrival: none <Emilee Mancuso NP - Last Filed: 03/17/22 23:36> Related Data Home medications: Previous Rx's Medication Instructions Recorded oxycodone 5 mg tablet 5 mg PO Q8H PRN pain #7 tabs 04/17/21 tamsulosin 0.4 mg capsule (Flomax) 0.4 mg PO DAILY 14 days #14 caps 04/17/21 ibuprofen 600 mg tablet 600 mg PO Q6H PRN pain #90 tabs 03/17/22 oxycodone 5 mg tablet 5 mg PO Q6H PRN pain 3 days #12 03/17/22 tabs <HENRIQUE Seth - Last Filed: 03/17/22 19:25> Allergies/adverse reactions: Allergies Allergy/AdvReac Type Severity Reaction Status Date / Time No Known Allergies Allergy Verified 02/15/22 19:36 <HENRIQUE Seth - Last Filed: 03/17/22 19:25> Review of Systems Review of Systems: Constitutional: No Fever, No Chills Cardiovascular: No Chest Pain, No SOB Respiratory: No Cough, No Dyspnea Gastrointestinal: No Nausea, No Vomiting, No Diarrhea, positive abdominal Pain, positive left flank pain Genitourinary: No Dysuria, No Hematuria Musculoskeletal: No joint pain, No Myalgias, No Joint Swelling Skin: No Skin lacerations, No rash Neuro: No Weakness, No Numbness, No Paresthesias, No Dizziness, No Headache <Emilee Mancuso NP - Last Filed: 03/17/22 23:36> Yes all other systems are reviewed and are negative <Emilee Mancuso NP - Last Filed: 03/17/22 23:36> PMFSH Past Medical History Attestation statement: The following information was validated with the patient. <Emilee Mancuso NP - Last Filed: 03/17/22 23:36> Source: old records reviewed <Emilee Mancuso NP - Last Filed: 03/17/22 23:36> Social History Social History: Social History Patient Tobacco Use Status: Current someday Tobacco user Smoked in Last 30 Days: Yes Use of substances other than those prescribed or required for medical reasons: No Advance Directives: No Advance Directives Information Provided: No Patient : No <HENRIQUE Seth - Last Filed: 03/17/22 19:25> Physical Exam ED Vital Signs: Vital Signs - 24 hr 03/17/22 19:23 03/17/22 19:28 03/17/22 21:58 Temperature 97.9 F Pulse Rate 95 Respiratory Rate 20 18 Blood Pressure 134/82 Pulse Oximetry 97 Oxygen Delivery Method Room Air 03/17/22 22:37 Temperature 97.5 F Pulse Rate 82 Respiratory Rate 16 Blood Pressure 116/67 Pulse Oximetry 97 Oxygen Delivery Method Room Air BMI result Body Mass Index 23.3 <HENRIQUE Seth - Last Filed: 03/17/22 19:25> Vital Signs - 24 hr 03/17/22 19:23 03/17/22 19:28 03/17/22 21:58 Temperature 97.9 F Pulse Rate 95 Respiratory Rate 20 18 Blood Pressure 134/82 Pulse Oximetry 97 Oxygen Delivery Method Room Air 03/17/22 22:37 Temperature 97.5 F Pulse Rate 82 Respiratory Rate 16 Blood Pressure 116/67 Pulse Oximetry 97 Oxygen Delivery Method Room Air BMI result Body Mass Index 23.3 <Emilee Mancuso NP - Last Filed: 03/17/22 23:36> Appearance: Alert. Oriented X3. No acute distress. Eyes: Pupils equal, round and reactive to light. ENT: Pharynx normal. Neck: Normal inspection. Neck supple. CVS: Normal heart rate and rhythm. Pulses normal. Respiratory: No respiratory distress. Breath sounds normal. Abdomen: Soft and left lower quadrant suprapubic tenderness to palpation, left- sided CVA tenderness. Skin: Skin warm and dry. Normal skin color. Normal skin turgor. Extremities: No lower extremity edema. Gait well-balanced well coordinated. Neuro: No motor deficit. No sensory deficit. Cranial nerves 2-12 intact. <Emilee Mancuso NP - Last Filed: 03/17/22 23:36> Course Course Course Narrative: RME performed by Bozena Mcneal PA-C. Patient is a 37 year old female presenting ot the emergency department with abdominal pain. Patient states that all her pain is in her lower abdomen. Labs and UA ordered. Patient placed back in the waiting room pending results and room availability. <HENRIQUE Seth - Last Filed: 03/17/22 19:25> RME performed by Bozena Mcneal PA-C. Patient is a 37 year old female presenting ot the emergency department with abdominal pain. Patient states that all her pain is in her lower abdomen. Labs and UA ordered. Patient placed back in the waiting room pending results and room availability. 37-year-old female presents with gradual onset of lower abdominal burning pelvic pain and left-sided flank pain. Has a history of kidney stones, and states the pain feels similar. Physical exam indicates a tender abdomen with left-sided CVA tenderness. Will order CT scan of abdomen pelvis to rule out acute abdomen. Lab values are unremarkable. Afebrile, nontoxic, mild distress secondary to pain. 22:00 CT scan of abdomen pelvis indicates ruptured ovarian cyst and left-sided kidney stones. I have referred her Dr. Cummings and prescribed her pain management with oxycodone and Motrin. Patient does understand the risks versus benefits of this medication. Patient verbalized understanding of and agrees plan of care discharge home. Replies understanding of signs and symptoms indicating need for emergent intervention. <Emilee Mancuso NP - Last Filed: 03/17/22 23:36> Medications Administered Discontinued Medications Generic Name Dose Route Start Last Admin Trade Name Freq PRN Reason Stop Dose Admin Iohexol 100 ml 03/17/22 20:45 03/17/22 20:45 Iohexol 350 Mg/Ml 100 Ml Infus..Btl IV 03/17/22 20:46 85 ml ONCE ONE Administration Morphine Sulfate 4 mg 03/17/22 20:04 03/17/22 21:58 Morphine Sulfate 4 Mg/Ml Cartridge IVPUSH 03/17/22 20:05 4 mg ONCE ONE Administration Protocol Ondansetron HCl 4 mg 03/17/22 20:04 03/17/22 21:58 Ondansetron Hcl 4 Mg/2 Ml Vial IVPUSH 03/17/22 20:05 4 mg ONCE ONE Administration <HENRIQUE Seth - Last Filed: 03/17/22 19:25> Medications Administered Discontinued Medications Generic Name Dose Route Start Last Admin Trade Name Freq PRN Reason Stop Dose Admin Iohexol 100 ml 03/17/22 20:45 03/17/22 20:45 Iohexol 350 Mg/Ml 100 Ml Infus..Btl IV 03/17/22 20:46 85 ml ONCE ONE Administration Morphine Sulfate 4 mg 03/17/22 20:04 03/17/22 21:58 Morphine Sulfate 4 Mg/Ml Cartridge IVPUSH 03/17/22 20:05 4 mg ONCE ONE Administration Protocol Ondansetron HCl 4 mg 03/17/22 20:04 03/17/22 21:58 Ondansetron Hcl 4 Mg/2 Ml Vial IVPUSH 03/17/22 20:05 4 mg ONCE ONE Administration <Emilee Mancuso NP - Last Filed: 03/17/22 23:36> Medical Decision Making Differential Diagnosis Differential Diagnoses: The differential diagnosis associated with the presentation includes <Emilee Mancuso NP - Last Filed: 03/17/22 23:36> Diverticulitis, kidney stone, pyelonephritis, UTI <Emilee Mancuso NP - Last Filed: 03/17/22 23:36> Lab Data MDM Lab Attestation statement: I reviewed the patient's lab results. <Emilee Mancuso NP - Last Filed: 03/17/22 23:36> Result Diagrams: 03/17/22 19:34 03/17/22 19:34 <HENRIQUE Seth - Last Filed: 03/17/22 19:25> Labs: Lab Results 03/17/22 03/17/22 Range/Units 19:34 19:34 WBC 10.2 (4.8-10.8) X10*3/uL RBC 3.91 L (4.20-5.50) X10*6/uL Hgb 11.8 L (12.0-16.0) g/dl Hct 35.0 L (37.0-47.0) % MCV 89.5 (80.0-98.0) fL MCH 30.2 (27.0-33.0) pg MCHC 33.7 (31.0-35.0) g/dl RDW 12.4 (11.0-16.0) % Plt Count 337 (160-400) X10*3/uL MPV 9.8 (9.4-12.3) fL Immature Gran % (Auto) 0.3 (0.0-0.4) % Neut % (Auto) 60.5 (45-73) % Lymph % (Auto) 32.0 (20-40) % Randall % (Auto) 6.2 (2-11) % Eos % (Auto) 0.5 (0-4) % Baso % (Auto) 0.5 (0-2) % Lymph # (Auto) 3.3 (1.2-4.9) X10*3/uL Randall # (Auto) 0.6 (0.1-1.2) X10*3/uL Eos # (Auto) 0.1 (0.0-0.4) X10*3/uL Baso # (Auto) 0.1 (0.0-0.2) X10*3/uL Abs Immat Gran (auto) 0.03 (0.00-0.03) X10*3/uL Absolute Neuts (auto) 6.2 (2.0-8.3) x10*3/uL Absolute Nucleated RBC 0.000 (0.0-0.012) X10*3/uL Nucleated RBC % (auto) 0.0 (0.0-0.2) /100WBC Sodium 140 (135-145) mmol/L Potassium 4.0 (3.3-5.1) mmol/L Chloride 106 (96-108) mmol/L Carbon Dioxide 26 (22-29) mmol/L Anion Gap 12 (12-20) BUN 12 (9-16) mg/dL Creatinine 0.76 (0.5-1.4) mg/dL Estim Creat Clear Calc 94.9 Estimated GFR > 60 Random Glucose 96 (60-115) mg/dL Calcium 9.4 (8.4-10.2) mg/dL Magnesium 1.9 (1.6-2.6) mg/dL Total Bilirubin 0.4 (0.0-1.0) mg/dL AST 15 (5-31) U/L ALT 7 (0-31) U/L Alkaline Phosphatase 86 (39-117) U/L Total Protein 7.1 (6.5-8.0) g/dL Albumin 4.4 (3.5-5.0) g/dL <HENRIQUE Seth - Last Filed: 03/17/22 19:25> Lab Results 03/17/22 03/17/22 Range/Units 19:34 19:34 WBC 10.2 (4.8-10.8) X10*3/uL RBC 3.91 L (4.20-5.50) X10*6/uL Hgb 11.8 L (12.0-16.0) g/dl Hct 35.0 L (37.0-47.0) % MCV 89.5 (80.0-98.0) fL MCH 30.2 (27.0-33.0) pg MCHC 33.7 (31.0-35.0) g/dl RDW 12.4 (11.0-16.0) % Plt Count 337 (160-400) X10*3/uL MPV 9.8 (9.4-12.3) fL Immature Gran % (Auto) 0.3 (0.0-0.4) % Neut % (Auto) 60.5 (45-73) % Lymph % (Auto) 32.0 (20-40) % Randall % (Auto) 6.2 (2-11) % Eos % (Auto) 0.5 (0-4) % Baso % (Auto) 0.5 (0-2) % Lymph # (Auto) 3.3 (1.2-4.9) X10*3/uL Randall # (Auto) 0.6 (0.1-1.2) X10*3/uL Eos # (Auto) 0.1 (0.0-0.4) X10*3/uL Baso # (Auto) 0.1 (0.0-0.2) X10*3/uL Abs Immat Gran (auto) 0.03 (0.00-0.03) X10*3/uL Absolute Neuts (auto) 6.2 (2.0-8.3) x10*3/uL Absolute Nucleated RBC 0.000 (0.0-0.012) X10*3/uL Nucleated RBC % (auto) 0.0 (0.0-0.2) /100WBC Sodium 140 (135-145) mmol/L Potassium 4.0 (3.3-5.1) mmol/L Chloride 106 (96-108) mmol/L Carbon Dioxide 26 (22-29) mmol/L Anion Gap 12 (12-20) BUN 12 (9-16) mg/dL Creatinine 0.76 (0.5-1.4) mg/dL Estim Creat Clear Calc 94.9 Estimated GFR > 60 Random Glucose 96 (60-115) mg/dL Calcium 9.4 (8.4-10.2) mg/dL Magnesium 1.9 (1.6-2.6) mg/dL Total Bilirubin 0.4 (0.0-1.0) mg/dL AST 15 (5-31) U/L ALT 7 (0-31) U/L Alkaline Phosphatase 86 (39-117) U/L Total Protein 7.1 (6.5-8.0) g/dL Albumin 4.4 (3.5-5.0) g/dL <Emilee Mancuso NP - Last Filed: 03/17/22 23:36> Independent Interpretation I performed an independent interpretation of an: CT Scan <Emilee Mancuso NP - Last Filed: 03/17/22 23:36> Radiology Impression Discussion of test interpretation with radiology: I have reviewed the radiologist's reading. <Emilee Mancuso NP - Last Filed: 03/17/22 23:36> Radiologist Impression: FINDINGS: LUNG BASES: Calcified granuloma in the right lung base.? ABDOMINAL AND PELVIC WALL:? Unremarkable.? LIVER AND BILIARY TREE: Unremarkable.? GALLBLADDER: Unremarkable.? PANCREAS: Unremarkable.? SPLEEN: Unremarkable.? ADRENAL GLANDS: Unremarkable.? KIDNEYS AND URETERS: Nonobstructing left renal stones measuring up to 3 mm. GASTROINTESTINAL TRACT: Appendix is surgically absent. Colonic diverticulosis without focal inflammatory changes to suggest diverticulitis. VASCULAR: Circumaortic left renal vein. LYMPH NODES/PERITONEUM: No lymphadenopathy. FREE FLUID: Small volume of mildly complex pelvic free fluid. BLADDER: Unremarkable.? PELVIC VISCERA: Unremarkable. OSSEOUS STRUCTURES: Unremarkable.? CT/CT abdomen pelvis w IV con IMPRESSION: ? Small volume of mildly complex free fluid in the pelvis, nonspecific but could be commonly seen in the setting of ruptured hemorrhagic ovarian cyst. ? Nonobstructing left renal stones measuring up to 3 mm. <Emilee Mancuso NP - Last Filed: 03/17/22 23:36> Independent Historian Clinical information obtained from an independent historian. History obtained from or confirmed by: Other (Family) <Emilee Mancuso NP - Last Filed: 03/17/22 23:36> External Record Review External record reviewed: Outpatient record and Prior outpatient labs <Emilee Mancuso NP - Last Filed: 03/17/22 23:36> Prescription Management I considered prescription management with: Pain Medication <Emilee Mancuso NP - Last Filed: 03/17/22 23:36> Discharge Plan Discharge Clinical Impression: Kidney stone, Ovarian cyst rupture <HENRIQUE Seth - Last Filed: 03/17/22 19:25> Patient Disposition: Home, Self-Care <HENRIQUE Seth - Last Filed: 03/17/22 19:25> Instructions: Ovarian Cyst (ED), Kidney Stones (ED) <HENRIQUE Seth - Last Filed: 03/17/22 19:25> Additional Instructions: Le evaluaron por dolor abdominal. La tomograf?a computarizada del abdomen y la pelvis indica c?lculos renales no obstructivos en el lado florentino y un quiste ov?rico roto. Por favor, brittny un seguimiento con [facility] OBGYN. Le recet? oxicodona 5 mg. Laurie medicamento es un narc?taylor y tiene un alto riesgo de adicci?n y abuso. No conduzca ni maneje maquinaria mientras stan laurie medicamento. Laurie medicamento puede retrasar el tiempo de reacci?n, aumentar el riesgo de ca?gar[place], causar estre?imiento y somnolencia. Beber mucho l?quido. Use MiraLax y/o Colace diariamente para ayudar a ablandar las heces. [place] Motrin 600 mg cada 6 horas seg?n sea necesario para ayudar a reducir el dolor y la inflamaci?n. Margaux por elegir laurie departamento de emergencias para luther evaluaci?n. Por favor, brittny un seguimiento con el m?dico de atenci?n primaria seg?n sea necesario. Regrese al departamento de emergencias por cualquier s?ntoma nuevo, preocupante o que empeore. You were evaluated for abdominal pain. CT scan of abdomen and pelvis indicates left-sided nonobstructing kidney stones, and a ruptured ovarian cyst. Please follow-up with your OBGYN. I prescribed oxycodone 5 mg. This medication is a narcotic and has high risk for addiction and abuse. Do not drive or operate machinery while taking this medication. This medication can delay reaction time, increased risk for falls, cause constipation and drowsiness. Drink plenty of fluids. Use MiraLax and or Colace daily to help soften stools. Take Motrin 600 mg every 6 hours as needed to help reduce pain and inflammation. Thank you for choosing this emergency department for evaluation. Please follow-up with primary care physician as needed. Return to the emergency department for any new, concerning, or worsening symptoms. <HENRIQUE Seth - Last Filed: 03/17/22 19:25> Prescriptions: New oxycodone 5 mg tablet 5 mg PO Q6H PRN (Reason: pain) 3 Days Qty: 12 0RF Rx Instructions: Partial Fill upon patient request. Ruptured ovarian cyst. ibuprofen 600 mg tablet 600 mg PO Q6H PRN (Reason: pain) Qty: 90 0RF No Action oxycodone 5 mg tablet 5 mg PO Q8H PRN (Reason: pain) Qty: 7 0RF Rx Instructions: Left kidney stones tamsulosin [Flomax] 0.4 mg capsule 0.4 mg PO DAILY 14 Days Qty: 14 0RF <HENRIQUE Seth - Last Filed: 03/17/22 19:25> Referrals: Bear Cummings MD [Physician] - 1 week (Ruptured ovarian cyst) <HENRIQUE Seth - Last Filed: 03/17/22 19:25> Stand Alone Forms: Work/School Release <HENRIQUE Seth - Last Filed: 03/17/22 19:25> Interventions: ED Discharge Assessment Last Done: 03/17/22 22:57 <HENRIQUE Seth - Last Filed: 03/17/22 19:25> Discharge Date/Time: 03/17/22 23:01 <HENRIQUE Seth - Last Filed: 03/17/22 19:25>
[2022-03-17 19:28] VITALS: TEMP 36.6
[2022-03-17 19:48] LABS: MANUAL DIFF FLAG NO
[2022-03-17 19:50] LABS: Basophils Absolute Auto 0.1 X10*3/uL (0.0-0.2); Basophils Percent Auto 0.5 % (0-2); Eosinophils Absolute Auto 0.1 X10*3/uL (0.0-0.4); Eosinophils Percent Auto 0.5 % (0-4); Hemoglobin 11.8 g/dl (12.0-16.0); Imm Gran Abs Auto 0.03 X10*3/uL (0.00-0.03); Imm Gran Pct Auto 0.3 % (0.0-0.4); Lymphocytes Absolute Auto 3.3 X10*3/uL (1.2-4.9); Mean Corpuscular HGB Conc 33.7 g/dl (31.0-35.0); Mean Corpuscular Hemoglobin 30.2 pg (27.0-33.0); Mean Corpuscular Volume 89.5 fL (80.0-98.0); Mean Platelet Volume 9.8 fL (9.4-12.3); Monocytes Absolute Auto 0.6 X10*3/uL (0.1-1.2); Monocytes Percent Auto 6.2 % (2-11); Neutrophils Absolute Auto 6.2 x10*3/uL (2.0-8.3); Neutrophils Percent Auto 60.5 % (45-73); Platelet Count 337 X10*3/uL (160-400); Red Blood Count 3.91 X10*6/uL (4.20-5.50); Red Cell Distribution Width 12.4 % (11.0-16.0); White Blood Count 10.2 X10*3/uL (4.8-10.8)
[2022-03-17 20:12] LABS: Alanine Aminotransferase 7 U/L (0-31); Albumin Level 4.4 g/dL (3.5-5.0); Alkaline Phosphatase 86 U/L (39-117); Anion Gap 12 (12-20); Aspartate Amino Transferase 15 U/L (5-31); Bilirubin Total 0.4 mg/dL (0.0-1.0); Blood Urea Nitrogen 12 mg/dL (9-16); Calcium 9.4 mg/dL (8.4-10.2); Carbon Dioxide 26 mmol/L (22-29); Chloride 106 mmol/L (96-108); Creatinine Clr Calc Pharmacy 94.9; Estimated Glomerular Filt Rate > 60; Glucose Random 96 mg/dL (60-115); Magnesium 1.9 mg/dL (1.6-2.6); Sodium 140 mmol/L (135-145); Total Protein 7.1 g/dL (6.5-8.0)
[2022-03-17] MEDS: iohexoL 350 MG/ML 100 ML INFUS..BTL IV (20:45)
[2022-03-17 21:58] VITALS: RESP 18
[2022-03-17] MEDS: Morphine Sulfate 4 MG/ML CARTRIDGE IVPUSH (21:58)
[2022-03-17] MEDS: ondansetron HCL 4 MG/2 ML VIAL IVPUSH (21:58)
[2022-03-17 22:37] VITALS: BP 116/67; PULSE 82; RESP 16; TEMP 36.4; O2SAT 97
== END 2022-03-17 23:01 | disposition home or self-care (01) ==
PROVIDERS: Physician Assistant Medical; Emergency Provider Emergency Medicine
DX: N20.0 Calculus of kidney (principal); N83.209 Unspecified ovarian cyst, unspecified side; F17.200 Nicotine dependence, unspecified, uncomplicated
CPT/HCPCS: 36415; 51798; 74177; 80053; 83735; 85025; 96374; 96375; 99284; J2270; J2405; Q9967

== ENCOUNTER 2022-03-22 13:20 | Outpatient (REF) | payer OTHER, SELFPAY ==
[2022-03-22 17:29] LABS: CT PCR NOT DETECTED (Not Detect.); NG PCR NOT DETECTED (Not Detect.)
[2022-03-23 09:17] LABS: BV Int Neg Control Negative (Negative); BV Int Pos Control Positive (Positive)
== END 2022-03-22 13:21 | disposition home or self-care (01) ==
LOC: HO.LNP 13:20
PROVIDERS: Visit Provider Obstetrics & Gynecology
DX: Z11.3 Encounter for screening for infections with a predominantly sexual mode of transmission (principal); N20.0 Calculus of kidney; N83.209 Unspecified ovarian cyst, unspecified side
CPT/HCPCS: 0353U; 87480; 87510; 87660; 99202

== ENCOUNTER → 2022-05-23 10:04 | Outpatient (BNVA) | payer MEDICAID, SELFPAY | PROVIDERS: PCP Registered Nurse; Visit Provider Nurse Practitioner Family | DX: N20.0 Calculus of kidney (principal); U07.0 Vaping-related disorder; F17.200 Nicotine dependence, unspecified, uncomplicated | CPT/HCPCS: 99202 ==

== ENCOUNTER 2022-05-28 18:08 | Emergency (ER) | payer MEDICAID, SELFPAY ==
--- NOTE | ~2022-05-28 | XR_ITS ---
Examination: XR foot RT 2V, XR ankle RT 2V Indication: fall Comparison: No pertinent prior studies are currently available for comparison. Technique: 2 views of the right ankle with 3 views of the right foot including a lateral view of the foot and ankle Findings: Ankle: Soft tissue swelling seen about the ankle more so laterally. I do not appreciate any acute fracture or dislocation within the ankle itself. Ankle mortise appears to be intact without abnormal widening or irregularity. Small calcaneal heel spurs at the attachment point of the plantar aponeurosis and Achilles tendon. Foot: There is a cortical irregularity along the medial aspect of the navicular bone more likely representing a subtle nondisplaced navicular bone fracture. Although you can have an accessory ossicle in this location this does not appear to be significantly well-corticated suggesting a more likely acute fracture but clinical correlation for point tenderness in this location is recommended. There is a tiny chronic appearing os perineum incidentally seen lateral to the cuboid bone. No other acute bony abnormality within the foot. XR/XR foot RT 2V Impression: Soft tissue swelling about the ankle. There is a cortical irregularity along the medial aspect of the navicular bone more likely representing a subtle nondisplaced navicular fracture. Although you can have an accessory ossicle in this location this does not appear to be significantly well-corticated and correlation for point tenderness in this location would be recommended.
--- NOTE | ~2022-05-28 | XR_ITS ---
Examination: XR foot RT 2V, XR ankle RT 2V Indication: fall Comparison: No pertinent prior studies are currently available for comparison. Technique: 2 views of the right ankle with 3 views of the right foot including a lateral view of the foot and ankle Findings: Ankle: Soft tissue swelling seen about the ankle more so laterally. I do not appreciate any acute fracture or dislocation within the ankle itself. Ankle mortise appears to be intact without abnormal widening or irregularity. Small calcaneal heel spurs at the attachment point of the plantar aponeurosis and Achilles tendon. Foot: There is a cortical irregularity along the medial aspect of the navicular bone more likely representing a subtle nondisplaced navicular bone fracture. Although you can have an accessory ossicle in this location this does not appear to be significantly well-corticated suggesting a more likely acute fracture but clinical correlation for point tenderness in this location is recommended. There is a tiny chronic appearing os perineum incidentally seen lateral to the cuboid bone. No other acute bony abnormality within the foot. XR/XR ankle RT 2V Impression: Soft tissue swelling about the ankle. There is a cortical irregularity along the medial aspect of the navicular bone more likely representing a subtle nondisplaced navicular fracture. Although you can have an accessory ossicle in this location this does not appear to be significantly well-corticated and correlation for point tenderness in this location would be recommended.
[2022-05-28 18:28] VITALS: BP 122/64; PULSE 77; RESP 18; TEMP 36.8; O2SAT 99; BMI 26.3
--- NOTE | 2022-05-28 18:29 | ED.GENADULT ---
HPI - General Adult General Chief complaint: Extremity Injury, Lower <HENRIQUE Barfield - Last Filed: 06/04/22 09:37> Stated complaint: work inj. twisted R ankle <HENRIQUE Barfield - Last Filed: 06/04/22 09:37> Time Seen by Provider: 05/28/22 20:52 <HENRIQUE Barfield - Last Filed: 06/04/22 09:37> Source: patient and RN notes reviewed <Ari Rao - Last Filed: 05/28/22 22:04> Mode of arrival: ambulatory <Ari Rao - Last Filed: 05/28/22 22:04> Limitations: no limitations <Ari Rao - Last Filed: 05/28/22 22:04> History of Present Illness HPI narrative: 37-year-old female presents for evaluation of right ankle and foot pain. Patient reports at work while trying to take a step ?I twisted my foot and fell. ? Patient reports significant pain to the right lateral ankle and foot. She is unable to bear weight on the area. Denies any other injuries from the fall She reports her pain is 10/10, aching and worse with movement <Ari Rao - Last Filed: 05/28/22 22:04> Related Data Home medications: Previous Rx's Medication Instructions Recorded ibuprofen 600 mg tablet 600 mg PO Q6H PRN pain #90 tabs 03/17/22 pyridoxine (vitamin B6) 100 mg 100 mg PO DAILY #90 tabs 05/23/22 tablet oxycodone 5 mg tablet 5 mg PO Q6H PRN pain (scale score 05/28/22 7-10) #12 tabs ibuprofen 800 mg tablet 800 mg PO Q8H PRN pain 30 days #90 06/01/22 tabs <HENRIQUE Barfield - Last Filed: 06/04/22 09:37> Allergies/adverse reactions: Allergies Allergy/AdvReac Type Severity Reaction Status Date / Time No Known Allergies Allergy Verified 05/23/22 20:24 <HENRIQUE Barfield - Last Filed: 06/04/22 09:37> Review of Systems Constitutional: Constitutional: Reports as per HPI, Denies chills, Denies fatigue and Denies fever(s) <Ari Shore Last Filed: 05/28/22 22:04> Cardiovascular: Cardiovascular: Denies chest pain and Denies dyspnea <Ari Rao - Last Filed: 05/28/22 22:04> Respiratory: Respiratory: Denies cough and Denies dyspnea <Ari Rao - Last Filed: 05/28/22 22:04> Gastrointestinal: Gastrointestinal: Denies abdominal pain, Denies constipation and Denies vomiting <Ari Rao - Last Filed: 05/28/22 22:04> Musculoskeletal: Musculoskeletal: Reports arthralgias and Reports joint swelling <Ari Rao - Last Filed: 05/28/22 22:04> Neurologic: Denies focal weakness <Ari Rao - Last Filed: 05/28/22 22:04> Endocrine: Endocrine: Denies fatigue <Ari Rao - Last Filed: 05/28/22 22:04> PMFSH Past Medical History Surgical History: Surgical History Hx of appendectomy Hx of tubal ligation <HENRIQUE Barfield - Last Filed: 06/04/22 09:37> Family History Family History: Family History Maternal Grandmother Diabetes Maternal Grandfather Lung cancer <HENRIQUE Barfield - Last Filed: 06/04/22 09:37> Social History Social History: Social History (Updated 06/01/22 @ 08:41 by MICHAELLE Ordonez) Household Members: Spouse and Children Housing: House Alcohol intake: current Alcohol intake frequency: holidays/special occasions only Patient Tobacco Use Status: Current someday Tobacco user e-Cigarette/Vaping Use: Currently Using service: No Current occupational status: employed 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 [employer] Sexual orientation: Straight/Heterosexual Gender identity: Female <HENRIQUE Barfield - Last Filed: 06/04/22 09:37> Physical Exam ED Vital Signs: Vital Signs - 24 hr 05/28/22 18:28 Temperature 98.3 F Pulse Rate 77 Respiratory Rate 18 Blood Pressure 122/64 Pulse Oximetry 99 Oxygen Delivery Method Room Air BMI result Body Mass Index 26.3 <HENRIQUE Barfield - Last Filed: 06/04/22 09:37> Vital Signs - 24 hr 05/28/22 18:28 Temperature 98.3 F Pulse Rate 77 Respiratory Rate 18 Blood Pressure 122/64 Pulse Oximetry 99 Oxygen Delivery Method Room Air BMI result Body Mass Index 26.3 <Ari [place] - Last Filed: 05/28/22 22:04> Const General: healthy appearing, comfortable, no acute distress, alert and awake <Ari [place] - Last Filed: 05/28/22 22:04> Nutritional Appearance: well nourished <Ari - Last Filed: 05/28/22 22:04> Orientation/consciousness: patient oriented x3 <Ari - Last Filed: 05/28/22 22:04> HENMT Head: Yes normocephalic and Yes atraumatic <Ari - Last Filed: 05/28/22 22:04> Throat: Yes posterior oropharynx normal <Ari - Last Filed: 05/28/22 22:04> Eyes Eyelids: Yes eyelids normal <Ari - Last Filed: 05/28/22 22:04> Conjunctivae: conjunctivae normal <Ari - Last Filed: 05/28/22 22:04> Sclerae: sclerae normal <Ari Last Filed: 05/28/22 22:04> Corneas: corneas normal <Ari O - Last Filed: 05/28/22 22:04> Pupils: Equal, round and reactive pupils present <Ari Chloé Last Filed: 05/28/22 22:04> EOM: EOMs intact bilaterally <Ari O Last Filed: 05/28/22 22:04> Neck Neck: Yes full ROM <Ari Chloé Last Filed: 05/28/22 22:04> Resp Effort & Inspection: normal respiratory effort, able to speak in complete sentences, no audible wheezes and not labored <Ari [place] - Last Filed: 05/28/22 22:04> Auscultation: clear to auscultation bilaterally <Ari Rao - Last Filed: 05/28/22 22:04> Cardio Rate: regular rate <Ari Maharajy - Last Filed: 05/28/22 22:04> Rhythm: regular rhythm <Ari Maharajy - Last Filed: 05/28/22 22:04> GI Inspection: No distended <[place] Maharajy - Last Filed: 05/28/22 22:04> Palpation (GI): Soft to palpation, not firm, nontender, no guarding and not rigid <Ari Maharajy - Last Filed: 05/28/22 22:04> Auscultation: normoactive bowel sounds <Ari Rao - Last Filed: 05/28/22 22:04> Skin General skin exam: no rashes or lesions noted and elasticity normal <Ari [place] - Last Filed: 05/28/22 22:04> Neuro General: patient oriented x3 <Ari Rao - Last Filed: 05/28/22 22:04> Cranial nerves: Yes CN's II-XII intact bilaterally, Yes Equal, round and reactive pupils present and Yes Bilaterally intact EOM present <Ari Rao - Last Filed: 05/28/22 22:04> Cognition (Neuro): normal cognition <Ari Maharajy - Last Filed: 05/28/22 22:04> Extrem Other: Patient has marked edema of the right lateral ankle and foot. There is significant right lateral ankle and right lateral foot tenderness. There is tenderness over the navicular bone. Distal sensation and capillary refill intact. <Ari Rao - Last Filed: 05/28/22 22:04> Course Course Course Narrative: RME: 37 yold female presents to the ED for right ankle pain after twisting ankle in whole in the ground after coming out her car. patietn denies any head trauma. xray images ordered. Motor exam of foot intact but with pain. neuro/vacular exam intact of right lower extremity <HENRIQUE Barfield - Last Filed: 06/04/22 09:37> Medications Administered Discontinued Medications Generic Name Dose Route Start Last Admin Trade Name Freq PRN Reason Stop Dose Admin Oxycodone HCl 5 mg 05/28/22 21:19 05/28/22 21:31 Oxycodone Hcl Immed Release 5 Mg Tablet PO 05/28/22 21:20 5 mg ONCE ONE Administration <HENRIQUE Barfield - Last Filed: 06/04/22 09:37> Medications Administered Discontinued Medications Generic Name Dose Route Start Last Admin Trade Name Oumar PRN Reason Stop Dose Admin Oxycodone HCl 5 mg 05/28/22 21:19 05/28/22 21:31 Oxycodone Hcl Immed Release 5 Mg Tablet PO 05/28/22 21:20 5 mg ONCE ONE Administration <Ari Rao - Last Filed: 05/28/22 22:04> Medical Decision Making Medical Decision Making MDM Narrative: X-ray shows a questionable fracture of the medial aspect of the navicular bone. Likely representing a subtle nondisplaced fracture. The patient is tender over this area. The patient will be placed in a posterior walking splint, given crutches and will follow up with Orthopedics. <Ari Rao - Last Filed: 05/28/22 22:04> Differential Diagnosis Ankle sprain Ankle fracture Foot sprain Foot fracture <Ari Rao - Last Filed: 05/28/22 22:04> Radiology Impression Discussion of test interpretation with radiology: I have reviewed the radiologist's reading. (Concern for nondisplaced fracture of navicular bone) <Ari Rao - Last Filed: 05/28/22 22:04> Discharge Plan Discharge Clinical Impression: Fracture of foot bone, right, closed <HENRIQUE Barfield - Last Filed: 06/04/22 09:37> Patient Disposition: Home, Self-Care <HENRIQUE Barfield - Last Filed: 06/04/22 09:37> Instructions: Foot Fracture in Adults (ED) <HENRIQUE Barfield - Last Filed: 06/04/22 09:37> Additional Instructions: Your x-ray shows a fracture of a bone in your foot called the navicular bone. Keep the splint on as placed. Follow-up with Orthopedics at the number provided. Use ibuprofen or Tylenol for pain. Use oxycodone for severe, breakthrough pain This may make you sleepy, did not drink alcohol or drive after taking You should be nonweightbearing until cleared by Orthopedics <HENRIQUE Barfield - Last Filed: 06/04/22 09:37> Prescriptions: New oxycodone 5 mg tablet 5 mg PO Q6H PRN (Reason: pain (scale score 7-10)) Qty: 12 0RF Rx Instructions: Partial Fill upon patient request. No Action ibuprofen 600 mg tablet 600 mg PO Q6H PRN (Reason: pain) Qty: 90 0RF pyridoxine (vitamin B6) 100 mg tablet 100 mg PO DAILY Qty: 90 1RF ibuprofen 800 mg tablet 800 mg PO Q8H PRN (Reason: pain) 30 Days Qty: 90 3RF <HENRIQUE Barfield - Last Filed: 06/04/22 09:37> Referrals: Diogo Ramyond MD [Physician] - (navicular bone fracture) <HENRIQUE Barfield - Last Filed: 06/04/22 09:37> Stand Alone Forms: Work/School Release <HENRIQUE Barfield - Last Filed: 06/04/22 09:37> Interventions: ED Discharge Assessment Last Done: 05/28/22 22:19 <HENRIQUE Barfield - Last Filed: 06/04/22 09:37> Discharge Date/Time: 05/28/22 22:21 <HENRIQUE Barfield - Last Filed: 06/04/22 09:37>
[2022-05-28] MEDS: oxyCODONE HCl Immed Release 5 MG TABLET PO (21:31)
== END 2022-05-28 22:21 | disposition home or self-care (01) ==
PROVIDERS: Emergency Provider Student in an Organized Health Care Education/Training Program
DX: S92.901A Unspecified fracture of right foot, initial encounter for closed fracture (principal); X50.1XXA Overexertion from prolonged static or awkward postures, initial encounter; Y93.9 Activity, unspecified; Y92.9 Unspecified place or not applicable; Y99.0 Civilian activity done for income or pay; Z79.899 Other long term (current) drug therapy; F17.210 Nicotine dependence, cigarettes, uncomplicated; Z71.6 Tobacco abuse counseling
CPT/HCPCS: 73600; 73620; 99283

== ENCOUNTER 2022-06-01 08:33 | Outpatient (REF) | payer MEDICAID, SELFPAY ==
--- NOTE | ~2022-06-01 | XR_ITS ---
X-ray right ankle and right foot CLINICAL HISTORY: Pain. COMPARISON: 05/28/2022. TECHNIQUE: 3 views of the right ankle and 3 views of the right foot. FINDINGS: Redemonstration of cortical irregularity along the medial aspect of the navicular bone, not significantly changed. Query nondisplaced vertically oriented fracture along the lateral talus. Redemonstration of circumferential soft tissue thickening around the ankle. XR/XR ankle RT min 3V IMPRESSION: 1. Query nondisplaced vertically oriented fracture along the lateral talus. Recommend further evaluation with a CT or MRI. 2. Redemonstration of cortical irregularity along the medial aspect of the navicular bone most suggestive of a fracture, not significantly changed.
--- NOTE | ~2022-06-01 | XR_ITS ---
X-ray right ankle and right foot CLINICAL HISTORY: Pain. COMPARISON: 05/28/2022. TECHNIQUE: 3 views of the right ankle and 3 views of the right foot. FINDINGS: Redemonstration of cortical irregularity along the medial aspect of the navicular bone, not significantly changed. Query nondisplaced vertically oriented fracture along the lateral talus. Redemonstration of circumferential soft tissue thickening around the ankle. XR/XR foot RT min 3V IMPRESSION: 1. Query nondisplaced vertically oriented fracture along the lateral talus. Recommend further evaluation with a CT or MRI. 2. Redemonstration of cortical irregularity along the medial aspect of the navicular bone most suggestive of a fracture, not significantly changed.
== END 2022-06-01 08:34 | disposition home or self-care (01) ==
LOC: HO.HOSX 08:33
PROVIDERS: PCP Physician Assistant; Visit Provider Physician Assistant
DX: S92.351A Displaced fracture of fifth metatarsal bone, right foot, initial encounter for closed fracture (principal); S93.431A Sprain of tibiofibular ligament of right ankle, initial encounter
CPT/HCPCS: 73610; 73630; 99202

== ENCOUNTER 2022-07-11 11:08 | Outpatient (REF) | payer OTHER, SELFPAY ==
--- NOTE | ~2022-07-11 | XR_ITS ---
EXAMINATION: Right ankle x-rays CLINICAL INFORMATION: Displaced fracture fifth metatarsal bone COMPARISON: Previous x-ray most recent May 2022 TECHNIQUE: 3 views of the right foot and 3 views of the right ankle FINDINGS: Right foot: Question fracture of the navicular bone versus accessory ossicle. No other fracture seen. Small accessory perineal ossicle. Small ossicle adjacent to the posterior talar calcaneal joint. Small calcaneal spurs. Right ankle: Previously questioned vertical fracture of the lateral talus no longer appreciated. The ankle mortise is normal. The soft tissues are normal. XR/XR ankle RT min 3V IMPRESSION: No fifth metatarsal fracture seen. Question fracture of the medial navicular bone versus accessory ossicle.
--- NOTE | ~2022-07-11 | XR_ITS ---
EXAMINATION: Right ankle x-rays CLINICAL INFORMATION: Displaced fracture fifth metatarsal bone COMPARISON: Previous x-ray most recent May 2022 TECHNIQUE: 3 views of the right foot and 3 views of the right ankle FINDINGS: Right foot: Question fracture of the navicular bone versus accessory ossicle. No other fracture seen. Small accessory perineal ossicle. Small ossicle adjacent to the posterior talar calcaneal joint. Small calcaneal spurs. Right ankle: Previously questioned vertical fracture of the lateral talus no longer appreciated. The ankle mortise is normal. The soft tissues are normal. XR/XR foot RT min 3V IMPRESSION: No fifth metatarsal fracture seen. Question fracture of the medial navicular bone versus accessory ossicle.
== END 2022-07-11 11:09 | disposition home or self-care (01) ==
LOC: HO.HOSX 11:08
PROVIDERS: Visit Provider Physician Assistant
DX: S92.351D Displaced fracture of fifth metatarsal bone, right foot, subsequent encounter for fracture with routine healing (principal); S93.431D Sprain of tibiofibular ligament of right ankle, subsequent encounter; X58.XXXD Exposure to other specified factors, subsequent encounter
CPT/HCPCS: 73610; 73630; 99212

== ENCOUNTER 2022-08-29 09:33 | Outpatient (AMB) | payer OTHER, SELFPAY ==
--- NOTE | 2022-08-29 09:51 | MHC.OFFVIS ---
Intake Vital Signs 08/29/22 09:54 Height 5 ft 6 in Weight 163 lb BMI 26.3 Intake Visit Reasons: OV- right ankle sprain 05/28/22 Intake Note: Ainsley is a 37 year old female who presents today for a follow up of right ankle sprain. Xrays updated. Patient reports improvement in swelling and pain. Her pain mostly comes in the afternoon. States now having pain at her medial aspect of ankle and not sure if this is from boot wear. Numbness in her small toe. She continues to work with PT but states now on pause due to her being in the boot and new pain in her ankle. Allergies No Known Allergies Allergy (Verified 08/29/22 09:52) HPI OV- right ankle sprain 05/28/22 HPI Details 37-year-old female who returns to the office today for a follow-up of right ankle sprain, 05/28/22. She states she has improvement in her swelling and pain but she continues to have pain and stiffness in her medial aspect of her ankle which is aggravated in the afternoon. She also c/o numbness in her small toe. She continues to work with physical therapy but has discontinued attending it as she is in the boot. She states she has been walking without the boot and feels there is some relief when she takes off the boot. 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 [employer] Sexual orientation: Straight/Heterosexual Gender identity: Female Female Reproductive History Menstrual Age of Menarche: 12 Review of Systems Const All systems reviewed & are unremarkable except as noted in HPI and below Physical Exam Vital Signs: BMI result Body Mass Index 26.3 Const General: cooperative and no acute distress Orientation/consciousness: patient oriented x3 Resp Effort & Inspection: normal respiratory effort and able to speak in complete sentences Cardio Peripheral pulses: Peripheral pulses 2+ throughout Neuro General: patient oriented x3 Extrem Other: Right ankle normal to inspection, no swelling over the medial and lateral malleolus. No tenderness over the navicular bone or talus No laxity, NVI. Results Reviewed Results Reviewed: Xrays were obtained in the office today and personally reviewed by me of the right foot and ankle show stable fracture without displacement of the navicular bone and talus. Assessment & Plan Assessment & Plan (1) Fracture of foot bone, right, closed: Code(s): S92.901A - Unspecified fracture of right foot, initial encounter for closed fracture (2) High ankle sprain: Code(s): S93.439A - Sprain of tibiofibular ligament of unspecified ankle, initial encounter Plan She will be transition to a lace up ankle brace. She will continue to work with physical therapy for strength and gait training. She will continue with sedentary work and can increase her days to 5 days a week. I will see her back in 8 weeks, sooner if needed. Orders: Orders XR ankle RT min 3V Today M25.571 - Pain in right ankle and joints of right foot XR foot RT min 3V Today S92.351A - Displaced fracture of fifth metatarsal bone, right foot, initial encounter for closed fracture Patient Instructions: Scribed for Rebecca Whitlock PA-C, by Yash Puga emergency medicine medical director, on 08/29/2022 at 9:30 AM EST. I, Rebecca Whitlock PA-C, have personally reviewed and agree with the information entered by the scribe. Coding Level of Care Code Global (53862) Diagnoses Fracture of foot bone, right, closed S92.901A High ankle sprain S93.439A
[2022-08-29 09:54] VITALS: BMI 26.3
== END 2022-08-29 10:20 | disposition home or self-care (01) ==
PROVIDERS: Visit Provider Physician Assistant
DX: S92.901A Unspecified fracture of right foot, initial encounter for closed fracture (principal); S93.439A Sprain of tibiofibular ligament of unspecified ankle, initial encounter
CPT/HCPCS: 99213

== ENCOUNTER 2022-08-29 10:59 | Outpatient (REF) | payer OTHER, SELFPAY ==
--- NOTE | ~2022-08-29 | XR_ITS ---
X-RAY RIGHT ANKLE X-RAY RIGHT FOOT CLINICAL HISTORY: Pain. COMPARISON: Radiograph of the right ankle and right foot 07/11/2022. TECHNIQUE: 2 views of the right ankle and 3 views of the right foot. FINDINGS: Right ankle: Very subtle vertically oriented lucency along the lateral talus, stable dating back to 06/01/2022, nonspecific could represent a vascular groove. No interval fracture or subluxation. No significant soft tissue abnormality. Right foot: Stable fracture versus accessory ossicle in the medial navicular bone. No interval fractures or subluxation. Small calcaneal spurs. Redemonstration of os trigonum. Mild diffuse nonspecific soft tissue thickening. XR/XR foot RT min 3V IMPRESSION: 1. No acute fractures or subluxation. 2. Unchanged subtle vertically oriented lucency in the lateral talus, nonspecific could represent a vascular groove. 3. Stable fracture versus accessory ossicle in the medial navicular bone. 4. Stable os trigonum. 5. Mild nonspecific soft tissue thickening, correlate for cellulitis or edema. 6. Small calcaneal spurs.
--- NOTE | ~2022-08-29 | XR_ITS ---
X-RAY RIGHT ANKLE X-RAY RIGHT FOOT CLINICAL HISTORY: Pain. COMPARISON: Radiograph of the right ankle and right foot 07/11/2022. TECHNIQUE: 2 views of the right ankle and 3 views of the right foot. FINDINGS: Right ankle: Very subtle vertically oriented lucency along the lateral talus, stable dating back to 06/01/2022, nonspecific could represent a vascular groove. No interval fracture or subluxation. No significant soft tissue abnormality. Right foot: Stable fracture versus accessory ossicle in the medial navicular bone. No interval fractures or subluxation. Small calcaneal spurs. Redemonstration of os trigonum. Mild diffuse nonspecific soft tissue thickening. XR/XR ankle RT min 3V IMPRESSION: 1. No acute fractures or subluxation. 2. Unchanged subtle vertically oriented lucency in the lateral talus, nonspecific could represent a vascular groove. 3. Stable fracture versus accessory ossicle in the medial navicular bone. 4. Stable os trigonum. 5. Mild nonspecific soft tissue thickening, correlate for cellulitis or edema. 6. Small calcaneal spurs.
== END 2022-08-29 11:00 | disposition home or self-care (01) ==
LOC: HO.HOSX 10:59
PROVIDERS: Visit Provider Physician Assistant
DX: S92.351D Displaced fracture of fifth metatarsal bone, right foot, subsequent encounter for fracture with routine healing (principal); S93.401D Sprain of unspecified ligament of right ankle, subsequent encounter
CPT/HCPCS: 73610; 73630; 99212

== ENCOUNTER 2022-10-17 09:13 | Outpatient (AMB) | payer OTHER, SELFPAY ==
--- NOTE | 2022-10-17 09:24 | MHC.OFFVIS ---
Intake Vital Signs 10/17/22 09:27 Height 5 ft 6 in Weight 163 lb BMI 26.3 Intake Visit Reasons: OV-right foot/ankle F/U Intake Note: Ainsley a 37 year old female who presents today for a follow up of right ankle sprain. Patient reports comfort with ankle brace but continues to have pain at the lateral and medial aspect of ankle without brace wear. She has completed PT. Allergies No Known Allergies Allergy (Verified 10/17/22 09:29) HPI OV-right foot/ankle F/U HPI Details 37-year-old female who returns to the office today for a follow-up of right ankle pain. She continues to have pain in the lateral and medial aspect of her ankle with impact type activity. She states W/c did not approve her last 3 appts for PT so she was unable to attend. She continues to use the Lace up ASO brace. Recommendations from her therapist at her last appt were to continue with PT to work on strength and to wean from the brace. 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 [employer] Sexual orientation: Straight/Heterosexual Gender identity: Female Female Reproductive History Menstrual Age of Menarche: 12 Review of Systems Const All systems reviewed & are unremarkable except as noted in HPI and below Physical Exam Vital Signs: BMI result Body Mass Index 26.3 Const General: cooperative and no acute distress Orientation/consciousness: patient oriented x3 Resp Effort & Inspection: normal respiratory effort and able to speak in complete sentences Cardio Peripheral pulses: Peripheral pulses 2+ throughout Neuro General: patient oriented x3 Extrem Other: Right ankle normal to inspection, no swelling over the medial and lateral malleolus. No tenderness over the navicular bone or talus She does have pain with inversion and eversion against resistance. No laxity, NVI. Assessment & Plan Assessment & Plan (1) Fracture of foot bone, right, closed: Code(s): S92.901A - Unspecified fracture of right foot, initial encounter for closed fracture (2) High ankle sprain: Code(s): S93.439A - Sprain of tibiofibular ligament of unspecified ankle, initial encounter Plan She is going to continue working with physical therapy for strength and proprioceptive training. She will begin weaning out of her lace up ankle brace. She should definitely wear it while she is working or with any type of impact activities. I did reassure her that she may have occasional flareups with increased activities after work. Therefore, she should use the ankle support as needed and use anti-inflammatories. She will continue with her current work restriction and see me back in 8 weeks for reevaluation. I did put a new order for physical therapy as well. Orders: Orders PT Evaluation and Treatment Today S93.439A - Sprain of tibiofibular ligament of unspecified ankle, initial encounter Patient Instructions: Scribed for Rebecca Whitlock PA-C, by Yash Puga medical certification specialist, on 10/17/2022 at 9:30 AM EST. IRebecca PA-C, have personally reviewed and agree with the information entered by the scribe. Coding Level of Care Code Est Pt Level 3 (68047) Diagnoses Fracture of foot bone, right, closed S92.901A High ankle sprain S93.431T
[2022-10-17 09:27] VITALS: BMI 26.3
== END 2022-10-17 09:52 | disposition home or self-care (01) ==
PROVIDERS: PCP Physician Assistant; Visit Provider Physician Assistant
DX: S92.901A Unspecified fracture of right foot, initial encounter for closed fracture (principal); S93.431A Sprain of tibiofibular ligament of right ankle, initial encounter
CPT/HCPCS: 99213

== ENCOUNTER → 2022-10-17 09:13 | Outpatient (BNVA) | payer SELFPAY | PROVIDERS: PCP Physician Assistant; Visit Provider Physician Assistant | DX: S93.431A Sprain of tibiofibular ligament of right ankle, initial encounter (principal); X50.3XXA Overexertion from repetitive movements, initial encounter; Y93.9 Activity, unspecified; Y92.9 Unspecified place or not applicable; Y99.8 Other external cause status | CPT/HCPCS: 99212 ==

== ENCOUNTER 2022-12-12 09:24 | Outpatient (AMB) | payer OTHER, SELFPAY ==
--- NOTE | 2022-12-12 09:31 | A.OFFVIS_ITS ---
Intake Vital Signs 12/12/22 09:34 Height 5 ft 6 in Weight 163 lb BMI 26.3 Intake Visit Reasons: OV-F/U Rt ankle sprain Intake Note: Ainsley abel 37 year old female presents today for a follow up of right ankle. Patient reports while attending PT she hears a clicking with exercises. Continues to wear ankle brace as needed. Allergies No Known Allergies Allergy (Verified 10/17/22 09:29) HPI OV-F/U Rt ankle sprain HPI Details 37-year-old female who returns to the [facility] today for a follow-up of right ankle sprain. She states she has tightness in her ankle but is doing well overall. She also c/o clicking in her ankle with exercises. She continues to work on physical therapy and wearing her ankle brace with benefits. 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 [employer] Sexual orientation: Straight/Heterosexual Gender identity: Female Female Reproductive History Menstrual Age of Menarche: 12 Review of Systems Const All systems reviewed & are unremarkable except as noted in HPI and below Physical Exam Vital Signs: BMI result Body Mass Index 26.3 Const General: cooperative, healthy appearing, comfortable, no acute distress, well developed and alert Orientation/consciousness: patient oriented x3 HEENT Head: Yes normal to inspection, Yes normocephalic and Yes atraumatic Eyes General: appearance normal, both eyes and all related structures Neck Neck: Yes normal visual inspection and Yes no lymphadenopathy Resp Effort & Inspection: normal respiratory effort and able to speak in complete sentences Cardio Rate: regular rate Peripheral pulses: Peripheral pulses 2+ throughout GI Inspection: Yes normal to inspection Palpation (GI): Soft to palpation Skin General skin exam: no rashes or lesions noted Neuro General: patient oriented x3 Extrem Other: Right ankle normal to inspection, no swelling over the medial and lateral malleolus. No tenderness over the navicular bone or talus. Improved pain with inversion and eversion against resistance. No laxity, NVI. Psych Appearance: grossly normal Mental Status: mental status grossly normal Assessment & Plan Assessment & Plan (1) Fracture of foot bone, right, closed: Code(s): S92.901A - Unspecified fracture of right foot, initial encounter for closed fracture Qualifiers: Encounter type: subsequent encounter Fracture healing: with routine healing Qualified Code(s): S92.901D - Unspecified fracture of right foot, subsequent encounter for fracture with routine healing (2) High ankle sprain: Code(s): S93.439A - Sprain of tibiofibular ligament of unspecified ankle, initial encounter Qualifiers: Encounter type: subsequent encounter Laterality: right Qualified Code(s): S93.491D - Sprain of other ligament of right ankle, subsequent encounter Plan She will continue increase activity as tolerated. She will finish physical therapy and continue with her home exercises program. She will also wear her lace-up ankle brace with activities. If symptoms persist or worsens, patient will contact the office, otherwise follow-up as needed. She will return to work without restrictions. Patient Instructions: Scribed for Rebecca Whitlock PA-C, by Maurice Nova medical logistics specialist, on 12/12/2022. I, Rebecca Whitlock PA-C, have personally reviewed and agree with the information entered by the scribe. Coding Level of Care Code Est Pt Level 3 (88659) Diagnoses Closed fracture of right foot with routine healing, subsequent encounter S92.901D Encounter type: subsequent encounter Fracture healing: with routine healing High ankle sprain of right lower extremity, subsequent encounter S93.491D Encounter type: subsequent encounter Laterality: right
[2022-12-12 09:34] VITALS: BMI 26.3
== END 2022-12-12 09:43 | disposition home or self-care (01) ==
PROVIDERS: PCP Physician Assistant; Visit Provider Physician Assistant
DX: S92.901D Unspecified fracture of right foot, subsequent encounter for fracture with routine healing (principal); S93.491D Sprain of other ligament of right ankle, subsequent encounter
CPT/HCPCS: 99213

== ENCOUNTER → 2022-12-12 09:24 | Outpatient (BNVA) | payer OTHER, SELFPAY | PROVIDERS: PCP Physician Assistant; Visit Provider Physician Assistant | DX: S93.491D Sprain of other ligament of right ankle, subsequent encounter (principal); S92.901D Unspecified fracture of right foot, subsequent encounter for fracture with routine healing | CPT/HCPCS: 99212 ==

== ENCOUNTER 2022-12-26 08:00 | Outpatient (RCR) | payer OTHER, SELFPAY ==
--- NOTE | 2022-06-12 15:35 | MHC.PT.EP ---
[facility] [place] [facility] [place] [facility] [place] [facility] [address] [place] [address] [phone] F: [phone] F: [phone] F: [phone] F: [phone] Physical Therapy Plan of Care Date of Evaluation: Date of Surgery: none Diagnosis: High ankle sprain (tibiofibular ligament) displaced 5th met fracture of right foot Assessment: 37 y/o female presenting with a high ankle sprain/sprain of tibiofibular ligament per ortho and displace fracture of 5th metatarsal bone R foot. Pt demonstrates decreased active and passive ROM of the right ankle joint, impaired strength, impaired proprioception of R ankle joint, impaired weight bearing (currently demonstrating NWB-->partial weight bearing with B axillary crutches), impaired gait pattern, pain limiting function, edema of the R ankle joint, tenderness to palpation on either side of lateral malleolus and 4th/5th metatarsals, and impaired accessory mobility of ankle joint, and decreased gastroc soleus length. Patient is currently OOW per Ortho instructions. She was seen at their office on 06/01 and instructed to perform toe touch weight bearing-->partial-->FWB with tall walking boot based on pain levels. She has a f/u with [facility] on 07/11. Patient is an excellent candidate for skilled outpatient physical therapy services based on motivation, age, and prior level of function. I recommend skilled PT 2x/week for 6-8 weeks dependent upon f/u appt with Ortho in June. Frequency and Duration: The patient will be seen 2x/week for 8 weeks Short Term Goals: 1. Improve PROM of R ankle joint by at least 6 degrees in all impaired directions in 3 weeks. 2. Transition to 1 axillary crutch with tall boot and WBAT within 3 weeks. 3. Report less than 4/10 pain with weight bearing in 2 weeks. 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 Restore AROM of R ankle joint to WNL in all initially impaired directions in 6 weeks. 2. Improve strength of R ankle joint to at least 4-/5 in 6-8 weeks. 3. Demonstrate ability to ambulate w/o AD or walking boot (with ortho clearance) x 10 minutes on TM in 6-8 weeks. 4. Improve LEFI score by at least 20 points (IE: ) Treatment Plan: Modalities to reduce pain, spasms and effusion. Manual therapy to restore motion and function. Therapeutic exercise to improve strength and flexibility. Neuromuscular re-education for posture and balance. Therapeutic activities to return to functional activities of daily living. Electronically signed by: Ruthie Spence DPT Please sign and return to therapist. Thank you for your referral.
--- NOTE | 2022-12-26 13:26 | MHC.PT.DC ---
[facility] [place] Office [place] Office [place] Office [address] [place] [address] [phone] F: [phone] F: [phone] F: [phone] F: [phone] Physical Therapy Discharge Report Diagnosis: High ankle sprain (tibiofibular ligament) displaced 5th met fracture of right foot Date of Surgery: DOI 05/28 Date of Evaluation: 06/12/22 Date of Discharge: 12/26/22 Treatments to Date: 28 Cancellations to Date: 4 No Shows to Date: 2 Discharge Status: Achieved Goals Improved Function Independent with HEP Discharge Summary: MADDIE HAS PROGRESSED WELL IN PT-> SHE HAS RTW REGULAR DUTY/ FULL-TIME AND HAS BEEN ABLE TO RESUME HER REGULAR ADLs AND PRIOR LEVEL OF FUNCTIONAL MOBILITY. SHE IS MOTIVATED AND COMPLIANT WITH HER HEP AND SHE DISPLAYS DECENT SINGLE LIMB. THE Pt IS KNOWLEDGEABLE REGARDING SUPPORTIVE FOOTWEAR AND ITS IMPACT ON FOOT HEALTH. SHE IS D/C THIS DATE HAVING MET HER PT GOALS. Electronically signed by: MARIA DE JESUS NESS,PT Please sign and return to therapist. Thank you for your referral.
== END 2022-12-26 13:27 | disposition home or self-care (01) ==
LOC: HO.PT 08:00
PROVIDERS: PCP Physician Assistant; Visit Provider Physician Assistant
DX: S93.431D Sprain of tibiofibular ligament of right ankle, subsequent encounter (principal)
CPT/HCPCS: 97110; 97112; 97116; 97140; 97161; 97530

== ENCOUNTER 2022-12-31 10:26 | Emergency (ER) | payer OTHER, SELFPAY ==
--- NOTE | 2022-12-31 | ECG_ITS ---
Test Reason : dissiness/ syncope Blood Pressure : / mmHG Vent. Rate : 073 BPM Atrial Rate : 073 BPM P-R Int : 134 ms QRS Dur : 092 ms QT Int : 382 ms P-R-T Axes : 025 015 029 degrees QTc Int : 420 ms Normal sinus rhythm Incomplete right bundle branch block Borderline ECG No previous ECGs available Referred By: Generic ED Physician Electronically Signed By:DIANA JAMES MD
--- NOTE | ~2022-12-31 | CT_ITS ---
EXAMINATION: CT HEAD WITHOUT CONTRAST CLINICAL INFORMATION: Seizure COMPARISON: Previous head CT August 2021 TECHNIQUE: Contiguous axial imaging was performed from the skull base to vertex without intravenous administration of contrast. This CT examination was performed using dose optimization techniques as appropriate, variously including the following: *Automated exposure control *Adjustment of mA and/or kV according to patient size (this includes techniques or standardized protocols for targeted exams where dose is matched to indication/reason for exam; i.e. extremities or head) *Use of iterative reconstruction technique DLP: 727 mGy-cm FINDINGS: There is no evidence of an extra-axial collection. There is no evidence of intra-axial or extra-axial hemorrhage. Ventricles and extra-axial CSF spaces are appropriate. Mir-white matter differentiation is normal. No mass, mass effect or infarct. No skull fracture. Visualized paranasal sinuses, mastoid air cells and middle ears are clear. CT/CT head/brain wo IV con IMPRESSION: No acute intracranial pathology.
[2022-12-31 10:27] VITALS: BP 143/70; PULSE 80; RESP 18; TEMP 36.7; O2SAT 97
[2022-12-31 10:52] LABS: MANUAL DIFF FLAG NO
[2022-12-31 10:54] LABS: Basophils Percent Auto 0.5 % (0-2); Eosinophils Absolute Auto 0.1 X10*3/uL (0.0-0.4); Eosinophils Percent Auto 0.9 % (0-4); Hematocrit 38.2 % (37.0-47.0); Hemoglobin 12.4 g/dl (12.0-16.0); Imm Gran Abs Auto 0.02 X10*3/uL (0.00-0.03); Imm Gran Pct Auto 0.2 % (0.0-0.4); Lymphocytes Absolute Auto 2.8 X10*3/uL (1.2-4.9); Lymphocytes Percent Auto 34.7 % (20-40); Mean Corpuscular HGB Conc 32.5 g/dl (31.0-35.0); Mean Corpuscular Hemoglobin 29.7 pg (27.0-33.0); Mean Corpuscular Volume 91.4 fL (80.0-98.0); Monocytes Absolute Auto 0.4 X10*3/uL (0.1-1.2); Neutrophils Absolute Auto 4.8 x10*3/uL (2.0-8.3); Neutrophils Percent Auto 58.7 % (45-73); Platelet Count 308 X10*3/uL (160-400); Red Blood Count 4.18 X10*6/uL (4.20-5.50); Red Cell Distribution Width 13.1 % (11.0-16.0); White Blood Count 8.1 X10*3/uL (4.8-10.8)
[2022-12-31 11:07] LABS: Anion Gap 12 (12-20); Blood Urea Nitrogen 16 mg/dL (9-16); Calcium 9.3 mg/dL (8.4-10.2); Carbon Dioxide 24 mmol/L (22-29); Chloride 107 mmol/L (96-108); Creatinine Clr Calc Pharmacy 91.3; Estimated Glomerular Filt Rate > 60; Glucose Random 96 mg/dL (60-115); Potassium 3.9 mmol/L (3.3-5.1); Sodium 139 mmol/L (135-145)
--- NOTE | 2022-12-31 14:01 | ED_ITS ---
HPI - Dizziness General Chief Complaint: Headache Stated Complaint: dizziness Time Seen by Provider: 12/31/22 14:00 Source: patient and family () Mode of arrival: ambulatory Limitations: no limitations History of Present Illness HPI Narrative: 37 year old female with pmhx significant for nephrolithiasis and ruptured ovarian cyst presents to the ED today for evaluation of syncope. states that they were in the car today when she became unresponsive for approximately 5 seconds and was shaking . Patient endorses hearing calling her name. Once she came-to she states that she felt dizzy however was not confused. Denies bowel or bladder incontinence or tongue bite. Her immediately drove her to the ED for evaluation. She reports a similar episode 4 days ago where she was sitting on the couch, became unresponsive for few seconds and then came-to. After this episode she felt dizzy which quickly resolved. Did not seek medical attention at that time. She denies fever, chills, chest pain, shortness of breath, nausea or vomiting, abdominal pain, lower extremity edema or erythema. Denies recent travel or long car rides. Not on OCP. Not on hormones. Related Data Allergies Allergy/AdvReac Type Severity Reaction Status Date / Time No Known Allergies Allergy Verified 10/17/22 09:29 Review of Systems 2 Review of Systems: Constitutional: No fever, chills, fatigue, night sweats, weight changes ENT/Mouth: No ear pain, hearing loss, nasal congestion, sinus pain, rhinorrhea, sore throat Eyes: No eye pain, swelling, redness, vision changes, discharge Cardio: No chest pain, palpitations, HERNANDEZ, orthopnea, peripheral edema Pulm: No SOB, cough, sputum, wheezing, dyspnea, hemoptysis GI: No nausea, vomiting, hematemesis, abdominal pain, diarrhea, constipation, hematochezia, melena : No irregular bleeding, dysuria, frequency, urgency, hesitancy, hematuria, flank pain, urinary flow changes, urinary incontinence or retention MSK: No back pain, neck pain, joint pain, myalgias Skin: No lesions, rashes Neuro: No weakness, numbness, paresthesias, LOC, +dizziness, +headache All other systems reviewed and are negative. [facility] Past Medical History Attestation statement: The following information was validated with the patient. Source: old records reviewed and nursing notes reviewed Surgical History Hx of appendectomy Hx of tubal ligation Family History Family History Maternal Grandmother Diabetes Maternal Grandfather Lung cancer Social History Social History Household Members: Spouse and Children Housing: House Alcohol intake: current Alcohol intake frequency: holidays/special occasions only Patient Tobacco Use Status: Current someday Tobacco user Smoked in Last 30 Days: No e-Cigarette/Vaping Use: Currently Using Use of substances other than those prescribed or required for medical reasons: No Advance Directives: No Advance Directives Information Provided: No Patient : No service: No Current occupational status: employed 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[employer] Sexual orientation: Straight/Heterosexual Gender identity: Female Physical Exam 2 Vital Signs: Vital Signs: Last Vital Signs Temp 98.0 F 12/31/22 10:27 Pulse 85 12/31/22 21:18 Resp 14 12/31/22 14:24 BP 124/59 L 12/31/22 21:18 Pulse Ox 98 12/31/22 19:25 O2 Del Method Room Air 12/31/22 19:25 BMI result Body Mass Index 30.0 Vital signs stable Const: General: cooperative, healthy appearing, comfortable, no acute distress, alert and awake Orientation/consciousness: patient oriented x3 L imitations: no limitations HEENT: Head: Yes normal to inspection Ears: hearing grossly normal bilaterally General nose exam: Normal external nose present Mouth: tongue normal Eyes: General: appearance normal, both eyes and all related structures C onjunctivae: conjunctivae normal Sclerae: sclerae normal Pupils: Equal, round and reactive pupils present EOM: EOMs intact bilaterally Neck: Neck: Yes normal visual inspection, Yes no lymphadenopathy and Yes no meningeal signs Resp: Effort & Inspection: normal respiratory effort Auscultation: clear to auscultation bilaterally Cardio: Rate: regular rate Rhythm: regular rhythm Peripheral pulses: P eripheral pulses 2+ throughout GI: Inspection: Yes normal to inspection Palpation (GI): Soft to palpation, nontender and no guarding : General: Yes no CVA tenderness Back/Spine/Pelvis: Other: No midline spinous tenderness. No paraspinal muscle tenderness to palpation. No step-off deformity. Back: no CVA tenderness Skin: General skin exam: no rashes or lesions noted Neuro: Other: Strength 5/5 intact throughout. Sensation intact to light touch.? Neurovascular intact distally.? General: patient oriented x3, gait normal, moves all extremities, no meningeal signs, no focal motor deficits and deep tendon reflexes 2+ bilaterally Cranial nerves: Yes CN's II-XII intact bilaterally and Yes Equal, round and reactive pupils present Coordination: [id number] test normal, uvfo-ln-[id number] test normal and Normal rapid alternating movements of the distal upper extremity present (Neuro) Extrem: General: Yes normal to inspection, Yes capillary refill normal and Yes no clubbing, cyanosis or edema Course Course Course Narrative: 1625-- CBC without leukocytosis or anemia. Chemistry without acute electrolyte abnormalities requiring intervention. D-dimer 157 which is wnl > unlikely PE. Troponin undetectable > will repeat. BHCG negative. Lactic acid is wnl however cpk is elevated to 395 which may indicate possible seizure activity. UA negative for infection. Pt denies hx of seizures. 1647-- Patient's vital stable at the end of my shift. Sign out given to my colleague, Lenny TORRES pending repeat trop, head CT and disposition. Reevaluation(s) Reevaluation #1: patient alert oriented x3. Negative for any neuro deficits on re-evaluation. Orthostatics negative. Second troponin negative. From history from patient and seems like patient had a syncopal episode this past Saturday and today while her was driving she had seizure versus syncopal episodes. said passed out started shaking but there was no foaming of the mouth. Patient denies any urinary / bowel incontinence. Patient states she heard her talked to her while she was out of it. UA negative for UTI. Electrolytes are normal. Patient prefer follow up with primary care provider for follow-up. Patient will be also given information for Neurology. Seizure versus syncope. Head CT scan normal and negative for any brain bleed or mass. CT scan negative for aneurysm. patient presently denies headache Time: 21:56 Medications Administered Discontinued Medications Generic Name Dose Route Start Last Admin Trade Name Freq PRN Reason Stop Dose Admin Sodium Chloride 1,000 mls @ 999 mls/hr 12/31/22 16:00 12/31/22 17:39 Ns IV 12/31/22 17:00 Infused .Q1H1M KAMILA Infusion Medical Decision Making Medical Decision Making [facility] Narrative: 37 year old female with pmhx significant for nephrolithiasis and ruptured ovarian cyst presents to the ED today for evaluation of syncope. VSS. AOX4. No focal neuro deficits. Cerebellum intact. PERRLA. Tongue normal without laceration. RRR. Lungs CT b/l. No calf tenderness. Neurovascularly intact distally. Clinical concern for arrhythmia, ACS, pulmonary embolism, seizure, vasovagal syncope, orthostatic hypotension, IUP, ectopic. Lower suspicion for ICH, CVA/TIA, cerebellar stroke, dissection. Plan at this time is basic labs, lactic, EKG, trop, UA, urine , re-evaluation. Differential Diagnosis Differential Diagnoses: The differential diagnosis associated with the presentation includes As above. Admission/Observation Consideration of admission/observation: Escalation of care including admission/observation considered In this 37-year-old female with new onset seizure-like activity, admission was considered. Lab Data [facility] Lab Attestation statement: I reviewed the patient's lab results. As above. 12/31/22 10:44 12/31/22 10:44 Labs: Lab Results 12/31/22 12/31/22 12/31/22 Range/Units 10:44 14:56 15:53 WBC 8.1 (4.8-10.8) X10*3/uL RBC 4.18 L (4.20-5.50) X10*6/uL Hgb 12.4 (12.0-16.0) g/dl Hct 38.2 (37.0-47.0) % MCV 91.4 (80.0-98.0) fL MCH 29.7 (27.0-33.0) pg MCHC 32.5 (31.0-35.0) g/dl RDW 13.1 (11.0-16.0) % Plt Count 308 (160-400) X10*3/uL MPV 10.0 (9.4-12.3) fL Immature Gran % (Auto) 0.2 (0.0-0.4) % Neut % (Auto) 58.7 (45-73) % Lymph % (Auto) 34.7 (20-40) % [place] % (Auto) 5.0 (2-11) % Eos % (Auto) 0.9 (0-4) % Baso % (Auto) 0.5 (0-2) % Lymph # (Auto) 2.8 (1.2-4.9) X10*3/uL [place] # (Auto) 0.4 (0.1-1.2) X10*3/uL Eos # (Auto) 0.1 (0.0-0.4) X10*3/uL Baso # (Auto) 0.0 (0.0-0.2) X10*3/uL Abs Immat Gran (auto) 0.02 (0.00-0.03) X10*3/uL Absolute Neuts (auto) 4.8 (2.0-8.3) x10*3/uL Absolute Nucleated RBC 0.000 (0.0-0.012) X10*3/uL Nucleated RBC % (auto) 0.0 (0.0-0.2) /100WBC D-Dimer High Sensitivty 157 NG/ML Sodium 139 (135-145) mmol/L Potassium 3.9 (3.3-5.1) mmol/L Chloride 107 (96-108) mmol/L Carbon Dioxide 24 (22-29) mmol/L Anion Gap 12 (12-20) BUN 16 (9-16) mg/dL Creatinine 0.89 (0.5-1.4) mg/dL Estim Creat Clear Calc 91.3 Estimated GFR > 60 Random Glucose 96 (60-115) mg/dL Lactic Acid 0.9 (0.5-2.0) mmol/L Calcium 9.3 (8.4-10.2) mg/dL Magnesium 2.1 (1.6-2.6) mg/dL Total Creatine Kinase 395 H (26-140) U/L Troponin I High Sens < 2.7 (<3.5-17.0) ng/L Beta HCG, Quant < 2 mIU/mL Urine Color Urine Appearance Urine pH (5.0-9.0) Ur Specific [place] (1.005-1.025) Urine Protein (Neg-Trace) mg/dL Urine Glucose (UA) (Negative) mg/dL Urine Ketones (Negative) mg/dL Urine Blood (Negative) Urine Nitrite (Negative) Ur Leukocyte Esterase (Negative) 12/31/22 12/31/22 Range/Units 19:31 21:20 WBC (4.8-10.8) X10*3/uL RBC (4.20-5.50) X10*6/uL Hgb (12.0-16.0) g/dl Hct (37.0-47.0) % MCV (80.0-98.0) fL MCH (27.0-33.0) pg MCHC (31.0-35.0) g/dl RDW (11.0-16.0) % Plt Count (160-400) X10*3/uL MPV (9.4-12.3) fL Immature Gran % (Auto) (0.0-0.4) % Neut % (Auto) (45-73) % Lymph % (Auto) (20-40) % [place] % (Auto) (2-11) % Eos % (Auto) (0-4) % Baso % (Auto) (0-2) % Lymph # (Auto) (1.2-4.9) X10*3/uL [place] # (Auto) (0.1-1.2) X10*3/uL Eos # (Auto) (0.0-0.4) X10*3/uL Baso # (Auto) (0.0-0.2) X10*3/uL Abs Immat Gran (auto) (0.00-0.03) X10*3/uL Absolute Neuts (auto) (2.0-8.3) x10*3/uL Absolute Nucleated RBC (0.0-0.012) X10*3/uL Nucleated RBC % (auto) (0.0-0.2) /100WBC D-Dimer High Sensitivty NG/ML Sodium (135-145) mmol/L Potassium (3.3-5.1) mmol/L Chloride (96-108) mmol/L Carbon Dioxide (22-29) mmol/L Anion Gap (12-20) BUN (9-16) mg/dL Creatinine (0.5-1.4) mg/dL Estim Creat Clear Calc Estimated GFR Random Glucose (60-115) mg/dL Lactic Acid (0.5-2.0) mmol/L Calcium (8.4-10.2) mg/dL Magnesium (1.6-2.6) mg/dL Total Creatine Kinase (26-140) U/L Troponin I High Sens < 2.7 (<3.5-17.0) ng/L Beta HCG, Quant mIU/mL Urine Color Yellow Urine Appearance Clear Urine pH 6.0 (5.0-9.0) Ur Specific [place] 1.025 (1.005-1.025) Urine Protein Negative (Neg-Trace) mg/dL Urine Glucose (UA) Negative (Negative) mg/dL Urine Ketones Negative (Negative) mg/dL Urine Blood Negative (Negative) Urine Nitrite Negative (Negative) Ur Leukocyte Esterase Negative (Negative) Independent Interpretation I performed an independent interpretation of an: EKG and CT Scan Interpretation: EKG showing normal sinus rhythm with a rate of 73 beats per minute, QT 382, QTC 420, there are no acute ischemic changes or ST elevations. Head CT without intracranial bleed or mass effect, agree with radiologist's interpretation. Radiology Impression Discussion of test interpretation with radiology: I have reviewed the radiologist's reading. Radiologist Impression: CT head/brain wo IV con IMPRESSION: No acute intracranial pathology. Independent Historian Clinical information obtained from an independent historian. History obtained from or confirmed by: Spouse () External Record Review External record reviewed: Inpatient record Critical Care Time Critical Care Time Critical Care Time: No Discharge Plan Discharge Clinical Impression: Syncope, Headache Patient Disposition: Home, Self-Care Instructions: Syncope (ED), Acute Headache (ED) Additional Instructions: your blood work and imaging came back normal. History physical exam indicate syncope versus seizure. A recommend follow-up with primary care provider and neurologist. Return to the ED immediately for another syncopal episode, loss of consciousness, altered mental status, seizure, chest pain, shortness of breath, abdominal pain, slurred speech, facial droop, paralysis of extremities, loss of vision, or any other concerning symptoms. Tus an?lisis de bianca y tus im?genes resultaron normales. Los antecedentes del examen f?sico indican s?ncope versus convulsiones. Se recomienda seguimiento con m?dico de atenci?n primaria y neur?logo. Regrese al servicio de urgencias inmediatamente si presenta otro episodio de s?ncope, p?rdida del conocimiento, alteraci?n del estado mental, convulsiones, dolor en el pecho, dificultad para respirar, dolor abdominal, dificultad para hablar, dolor de asuncion intenso, ca?da facial, par?lisis de las extremidades, p?rdida de la visi?n o cualquier otro referente a los s?ntomas. Referrals: Christian Mccurdy MD [Physician] - ( Syncope versus seizure) Stand Alone Forms: Work/School Release Interventions: ED Discharge Assessment Last Done: 12/31/22 22:25 Discharge Date/Time: 12/31/22 22:30 Print Language: Serbian
[2022-12-31 14:24] VITALS: BP 129/69; PULSE 68; RESP 14; O2SAT 99
--- NOTE | 2022-12-31 14:24 | PC.NURSE ---
Patient reports having headache since this AM, woke up with symptoms, throbbing sensation. Respirations even and unlabored, skin pwd, alert and oriented x4.
[2022-12-31 14:27] LABS: HCG Quantitative < 2 mIU/mL
[2022-12-31 15:12] LABS: D Dimer High Sensitivity 157 NG/ML
[2022-12-31 15:24] LABS: Troponin-I High Sensitivity < 2.7 ng/L (<3.5-17.0)
[2022-12-31 16:12] LABS: Lactic Acid 0.9 mmol/L (0.5-2.0)
[2022-12-31] MEDS: 0.9 % Sodium Chloride 1,000 ML 999 ML IV (16:34)
--- NOTE | 2022-12-31 16:37 | PC.NURSE ---
20g IV placed in LAC, fluids started per MAR
[2022-12-31 16:54] LABS: Magnesium 2.1 mg/dL (1.6-2.6)
[2022-12-31 19:25] VITALS: BP 106/48; PULSE 69; O2SAT 98
[2022-12-31 20:04] LABS: Troponin-I High Sensitivity < 2.7 ng/L (<3.5-17.0)
[2022-12-31 21:17] VITALS: BP 113/63; BP 120/65; PULSE 75; PULSE 76
[2022-12-31 21:18] VITALS: BP 124/59; PULSE 85
[2022-12-31 21:27] LABS: Appearance Urine Clear; Color Urine Yellow; Glucose Urine UA Negative (Negative); Leukocyte Esterase Urine Negative (Negative); Nitrite Urine Negative (Negative); Specific Gravity - Urine 1.025 (1.005-1.025); Urine Blood Negative (Negative); Urine Ketones Negative (Negative); Urine Protein Negative (Neg-Trace)
--- NOTE | 2022-12-31 22:25 | PC.NURSE ---
iv removed at discharge. pt ambulatory. 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 pt partner at bedside. pt provided with work note and discharge packet. pt verbalized understanding of discharge plan
== END 2022-12-31 22:30 | disposition home or self-care (01) ==
PROVIDERS: Physician Assistant; Physician Assistant Medical; Emergency Provider Emergency Medicine; PCP Physician Assistant
DX: R55 Syncope and collapse (principal); R51.9 Headache, unspecified; N20.0 Calculus of kidney; I45.10 Unspecified right bundle-branch block
CPT/HCPCS: 36415; 70450; 80048; 81003; 82550; 83605; 83735; 84484; 84702; 85025; 85379; 93005; 96360; 99284; 99285

== ENCOUNTER 2023-07-24 08:57 | Outpatient (AMB) | payer OTHER, SELFPAY ==
[2023-07-24 09:03] VITALS: BP 128/80; PULSE 78; O2SAT 99; BMI 29.7
--- NOTE | 2023-07-24 09:03 | MHC.PC.OV ---
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 She reports she has been having thoracic back pain and numbness over the left flank. She reports this has been a problem over a year. She denies any acute trauma to her thoracic spine. She reports she has been tested for kidney stones reports she had no further kidney stones. She also some has developed a rash over her torso and neck ever since changing to a keto diet. She reports this actually has happened to her before when changing to a keto diet. He is interested in topical cream to help with the itch. 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 1. Little interest or pleasure in doing things: not at all 2. Feeling down, depressed, or hopeless: not at all 3. Trouble falling or staying asleep, or sleeping too much: not at all 4. Feeling tired or having little energy: not at all 5. Poor appetite or overeating: not at all 6. Feeling bad about yourself - or that you are a failure or have let yourself or your family down: not at all 7. Trouble concentrating on things, such as reading the newspaper or watching television: not at all 8. Moving or speaking so slowly that other people could have noticed. Or the opposite - being so fidgety or restless that you have been moving around a lot more than usual: not at all 9. Thoughts that you would be better off or of hurting yourself in some way: not at all Total score: 0 Depression Screening Interpretation: Negative Depression Screening Done: Yes 84001 - PHQ-9 Billing: Yes Source: Developed by Drs. Dagoberto Pelaez, Edel Brown, Breezy Silva and colleagues, with an educational mansi from [employer]. Thrive Questionnaire Date Thrive assessed: 07/24/23 I am a: Patient What is your living situation today?: I have a steady place to live Within the past 12 months, did the food you bought not last and you didn't have the money to get more?: Never true Within the past 12 months, did you worry whether your food would run out before you got money to buy more?: Never true Do you have trouble paying for medicines?: No Do you have trouble getting transportation to medical appointments?: No Do you have trouble paying your heating and electricity bill?: No Do you have trouble taking care of your child, family member or friend?: No Do you have trouble with day-to-day activities such as bathing, preparing meals, shopping, managing finances, etc.?: No Are you currently unemployed and looking for a job?: No Are you interested in more education?: No Please select the resources that you would like help with: None Currently or been in a relationship where the following occur: no concerns reported THRIVE Score: 0 AUDIT C Alcohol Use Questionnaire (AUDIT-C) 1. How often do you have a drink containing alcohol?: 2-4 times a month 2. How many drinks containing alcohol do you have on a typical day when you are drinking?: 1 or 2 3. How often do you have six or more drinks on one occasion?: Never Total Score: 2 ONEIL-7 AMB Questionnaire ONEIL-7 Date ONEIL - 7 assessed: 07/24/23 Feeling nervous, anxious, or on edge: 0 = Not at all Not being able to stop or control worryin = Not at all Worrying too much about different things: 0 = Not at all Trouble relaxin = Not at all Being so restless that it is hard to sit still: 0 = Not at all Becoming easily annoyed or irritable: 0 = Not at all Feeling afraid as if something awful might happen: 0 = Not at all Total ONEIL-7 score (0-4 normal; 5-9 mild; 10-14 moderate; 15-21 severe): 0 Source: Developed by Drs. Dagoberto Pelaez, Edel Brown, Breezy Silva and colleagues, with an educational mansi from [employer]. ONEIL-7 Assessment Billing ONEIL-7 Assessment Tool: ONEIL-7 Assessment 75383 Review of Systems Const Denies headache(s) Eyes Denies loss of vision ENT Denies vertigo, Denies dizziness, Denies headache(s) and Denies sore throat Card Denies chest pain, Denies leg edema and Denies lightheadedness Resp Denies cough, Denies hemoptysis and Denies wheezing GI Denies abdominal pain, Denies melena, Denies constipation, Denies diarrhea and Denies vomiting Denies urinary frequency, Denies dysuria and Denies urinary urgency Musc Denies arthralgias, Denies joint swelling, Denies numbness and Denies tingling Neuro Denies Abnormal speech present, Denies behavioral changes, Denies vertigo, Denies dizziness, Denies headache(s), Denies loss of vision, Denies memory loss, Denies numbness and Denies tingling Psych Denies anxiety, Denies behavioral changes, Denies depression, Denies memory loss and Denies panic attacks Leif/Lymph Denies easy bleeding and Denies easy bruising Aller/Immun Denies wheezing Physical exam (Primary Care) Vital Signs: Last Vital Signs Pulse 78 06/05/24 09:03 BP 128/80 07/24/23 09:03 Pulse Ox 99 07/24/23 09:03 Oxygen Delivery Method Room Air 07/24/23 09:03 BMI result Body Mass Index 29.7 Tobacco/Smoking Status: Tobacco use Status Tobacco use date assessed 07/24/23 07/24/23 09:06 Patient Tobacco Use Status Current someday Tobacco 07/24/23 09:06 e-Cigarette/Vaping Use Currently Using 07/24/23 09:06 PHQ-9: PHQ-9 Score PHQ-9: Total score 0 07/24/23 09:19 Depression Screening Interpretation: Negative Thrive Assessment: Date of Thrive Assessment Date Thrive assessed 07/24/23 07/24/23 09:06 Currently or been in a relationship where the following occur: no concerns reported Const General: healthy appearing, no acute distress, alert and awake Nutritional Appearance: well nourished Orientation/consciousness: oriented to person, oriented to place and oriented to time HENMT Ears: TM's normal bilaterally General nose exam: Normal nasal mucous membranes and turbinates present Eyes Conjunctivae: conjunctivae normal Sclerae: sclerae normal Pupils: Equal, round and reactive pupils present Neck Neck: Yes no lymphadenopathy and Yes no JVD Thyroid: Thyroid normal Carotids: no bruits Resp Effort & Inspection: normal respiratory effort and not tachypneic Auscultation: no crackles, no rales, no rhonchi and no wheezes Cardio Rate: regular rate Rhythm: regular rhythm Heart sounds: no murmurs and normal S1 and S2 GI Palpation (GI): Soft to palpation, nontender, no hepatomegaly and no splenomegaly Auscultation: normal bowel sounds Skin General skin exam: no rashes or lesions noted and dry skin Neuro General: oriented to person, oriented to place and oriented to time Cranial nerves: Yes Equal, round and reactive pupils present Speech: No Abnormal speech present Gait exam (Neuro): Normal gait present Motor exam (neuro): no tremor noted Extrem Right upper extremity: full ROM Left upper extremity: full ROM Right lower extremity: full ROM; no edema Left lower extremity: full ROM; no edema Psych Mental Status: mental status grossly normal Speech and movement: Normal speech and movement present Affect: normal affect Attitude: cooperative Thought process: Normal thought process present Assessment and Plan Assessment & Plan (1) Thoracic radiculitis: Code(s): M54.14 - Radiculopathy, thoracic region Plan: Patient's signs and symptoms concerning for a thoracic disc etiology. Will send for x-rays and consider referral to physical therapy (2) Lumbar spine pain: Code(s): M54.50 - Low back pain, unspecified (3) Rash: Code(s): R21 - Rash and other nonspecific skin eruption (4) Screening for diabetes mellitus (DM): Code(s): Z13.1 - Encounter for screening for diabetes mellitus Orders: Orders XR lumbar spine 2-3V 07/24/23 M54.50 - Low back pain, unspecified XR thoracic spine 3V 07/24/23 M54.14 - Radiculopathy, thoracic region Comprehensive [place]. Panel Fast 07/24/23 Z13.1 - Encounter for screening for diabetes mellitus Medications: New betamethasone dipropionate 0.05% 1 appl topical DAILY 45 grams 1RF skin irritation 15 days R21 - Rash and other nonspecific skin eruption prednisone 40 mg (2 x 20 mg) PO DAILY 8 tabs 0RF 4 days R21 - Rash and other nonspecific skin eruption Coding Level of Care Code Est Pt Level 3 (11453) Diagnoses Thoracic radiculitis M54.14 Lumbar spine pain M54.50 Rash R21 Screening for diabetes mellitus (DM) Z13.1 Additional Codes ONEIL-7 Assessment Billing - ONEIL-7 Assessment Tool: ONEIL-7 Assessment 51169 ([id number])
== END 2023-07-24 09:39 | disposition home or self-care (01) ==
PROVIDERS: PCP Physician Assistant; Visit Provider Physician Assistant
DX: M54.14 Radiculopathy, thoracic region (principal); M54.50 Low back pain, unspecified; R21 Rash and other nonspecific skin eruption; Z13.1 Encounter for screening for diabetes mellitus
CPT/HCPCS: 99213

== ENCOUNTER 2023-09-23 07:47 | Outpatient (REF) | payer OTHER, SELFPAY ==
--- NOTE | ~2023-09-23 | XR_ITS ---
EXAMINATION: XR THORACIC SPINE CLINICAL INFORMATION: Thoracic radiculopathy. COMPARISON: None available. TECHNIQUE: Frontal, lateral and swimmer's views of the thoracic spine were obtained. FINDINGS: There is no fracture or bone destruction seen and the vertebral alignment is normal. There is no disc space narrowing. There is no abnormality of the paraspinal soft tissues. XR/XR thoracic spine 3V IMPRESSION: Unremarkable examination. EXAMINATION: XR LUMBOSACRAL SPINE CLINICAL INFORMATION: Lower back pain. COMPARISON: None TECHNIQUE: AP and lateral views of the lumbar spine and lateral view of the lumbosacral junction. FINDINGS: The vertebral bodies and posterior elements are normal. The disc spaces are preserved and the vertebral alignment is normal. There is slight L4 upper endplate arthropathy. The paraspinal soft tissues are normal. IMPRESSION: Unremarkable examination. Electronically signed by: Carlos Batista MD 10/17/2023 12:47 PM EDT [facility]station: [id number]
--- NOTE | ~2023-09-23 | XR_ITS ---
EXAMINATION: XR THORACIC SPINE CLINICAL INFORMATION: Thoracic radiculopathy. COMPARISON: None available. TECHNIQUE: Frontal, lateral and swimmer's views of the thoracic spine were obtained. FINDINGS: There is no fracture or bone destruction seen and the vertebral alignment is normal. There is no disc space narrowing. There is no abnormality of the paraspinal soft tissues. XR/XR lumbar spine 2-3V IMPRESSION: Unremarkable examination. EXAMINATION: XR LUMBOSACRAL SPINE CLINICAL INFORMATION: Lower back pain. COMPARISON: None TECHNIQUE: AP and lateral views of the lumbar spine and lateral view of the lumbosacral junction. FINDINGS: The vertebral bodies and posterior elements are normal. The disc spaces are preserved and the vertebral alignment is normal. There is slight L4 upper endplate arthropathy. The paraspinal soft tissues are normal. IMPRESSION: Unremarkable examination. Electronically signed by: Carlos Batista MD 10/17/2023 12:47 PM EDT Workstation: -[id number]
[2023-09-23 09:28] LABS: Alanine Aminotransferase 14 U/L (0-31); Albumin Level 4.1 g/dL (3.5-5.0); Alkaline Phosphatase 91 U/L (39-117); Anion Gap 11 (12-20); Aspartate Amino Transferase 25 U/L (5-31); Bilirubin Total 0.3 mg/dL (0.0-1.0); Blood Urea Nitrogen 13 mg/dL (9-16); Carbon Dioxide 26 mmol/L (22-29); Chloride 108 mmol/L (96-108); Estimated Glomerular Filt Rate > 60; Glucose Fasting 93 mg/dL (60-99); Potassium 4.1 mmol/L (3.3-5.1); Sodium 141 mmol/L (135-145)
== END 2023-09-23 07:48 | disposition home or self-care (01) ==
LOC: HO.LAB 07:47
PROVIDERS: PCP Physician Assistant; Visit Provider Physician Assistant
DX: Z13.1 Encounter for screening for diabetes mellitus (principal); M54.50 Low back pain, unspecified; M54.14 Radiculopathy, thoracic region
CPT/HCPCS: 36415; 72072; 72100; 80053

== ENCOUNTER 2023-09-25 10:01 | Outpatient (AMB) | payer OTHER, SELFPAY ==
[2023-09-25 10:53] VITALS: BP 134/84; PULSE 78; O2SAT 98; BMI 29.7
--- NOTE | 2023-09-25 10:53 | MHC.PC.OV ---
Vital Signs 09/25/23 10:53 Height 5 ft 5 in Weight 178 lb 6 oz BMI 29.7 BP 134/84 Blood Pressure Location Lt brachial Position Sitting Pulse 78 Pulse Source Pulse Oximeter Pulse Oximetry (%) 98 Oxygen Delivery Method Room Air Intake Visit Reasons: PE Intake Note: Patient is here today for a physical. 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 Patient's past medical history significant for chronic lower back pain, nephrolithiasis otherwise healthy 38-year-old female. Lumbar spine pain : continues to pain on intermittent basis. Somewhat related to some dietary changes as well. X-rays have been done though waiting radiology report. Willing to try NSAID as needed for her pain. 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 Dagoberto L. Edel Pelaez, Breezy Silva and colleagues, with an educational mansi from [employer]. Review of Systems Const Denies body aches, Denies chills, Denies excessive sweating, Denies fatigue, Denies fever(s) and Denies headache(s) Eyes Denies blurry vision ENT Denies dysphagia, Denies vertigo, Denies dizziness, Denies headache(s), Denies hearing loss and Denies tinnitus Card Denies chest pain, Denies chest pain with activity, Denies syncope, Denies irregular heart rhythm and Denies dyspnea Resp Denies chest congestion, Denies cough, Denies hemoptysis, Denies dyspnea and Denies wheezing GI Denies abdominal pain, Denies melena, Denies hematochezia, Denies coffee ground emesis, Denies dysphagia, Denies diarrhea, Denies nausea and Denies vomiting Denies urinary frequency, Denies dysuria, Denies urinary hesitancy and Denies urinary urgency Musc Reports back pain, Denies arthralgias, Denies limited range of motion, Denies muscle cramps and Denies muscle weakness Skin/Breast Denies rash and Denies skin ulcer Neuro Denies Abnormal speech present, Denies confusion, Denies vertigo, Denies dizziness, Denies syncope, Denies headache(s), Denies memory loss and Denies seizure-like activity Psych Denies anxiety, Denies confusion, Denies depression, Denies memory loss, Denies panic attacks and Denies paranoia Endo Denies excessive sweating, Denies fatigue, Denies flushing, Denies polydipsia and Denies polyuria Aller/Immun Denies wheezing Physical exam (Primary Care) Vital Signs: Last Vital Signs Pulse 78 09/25/23 10:53 BP 134/84 09/25/23 10:53 Pulse Ox 98 09/25/23 10:53 Oxygen Delivery Method Room Air 09/25/23 10:53 BMI result Body Mass Index 29.7 Tobacco/Smoking Status: Tobacco use Status Tobacco use date assessed 07/24/23 09/25/23 10:53 Patient Tobacco Use Status Current someday Tobacco 09/25/23 10:53 e-Cigarette/Vaping Use Currently Using 09/25/23 10:53 Thrive Assessment: Date of Thrive Assessment Date Thrive assessed 07/24/23 09/25/23 10:53 Const General: cooperative, comfortable, no acute distress, alert and awake; No confusion Orientation/consciousness: oriented to person, oriented to place, patient oriented x3 and No confusion HENMT Head: Yes normocephalic Ears: external ears normal and TM's normal bilaterally Face and sinus: No sinus tenderness Mouth: Normal oral and palatal mucosa present and tongue normal Teeth and gingiva: dentition normal and gingiva normal Throat: Yes posterior oropharynx normal, Yes tonsils normal and Yes uvula midline Eyes Conjunctivae: conjunctivae normal Sclerae: sclerae normal Pupils: Equal, round and reactive pupils present EOM: EOMs intact bilaterally Direct Ophthalmoscopy: No no photophobia Neck Neck: Yes no lymphadenopathy, No tender and Yes no JVD Thyroid: Thyroid normal Carotids: no bruits Chest Chest palpation & inspection: no tenderness Resp Effort & Inspection: normal respiratory effort, no audible wheezes, not labored and no stridor Auscultation: no crackles, no rales, no rhonchi and no wheezes Cardio Jugular venous distension: no JVD Rate: regular rate, not bradycardic and not tachycardic Rhythm: regular rhythm Bruits: no carotid bruits Peripheral pulses: Peripheral pulses 2+ throughout GI Inspection: Yes normal to inspection, No abdominal wall ecchymosis and No visible herniation Palpation (GI): Soft to palpation, nontender, no guarding, not rigid and No hepatosplenomegaly present Auscultation: normoactive bowel sounds General: Yes no CVA tenderness Back/Spine/Pelvis Back: no CVA tenderness and No back tenderness Cervical Spine: cervical ROM normal Thoracic/Lumbar Spine: thoracic and lumbar spine normal to inspection, straight leg raise negative bilaterally, No thoraco-lumbar ROM limited and No lumbar spinal tenderness Skin Lesions: no lesions Rashes: no rashes Wounds: no wounds Neuro General: oriented to person, oriented to place, patient oriented x3, CN's II-XI intact bilaterally and No confusion Cranial nerves: Yes Equal, round and reactive pupils present and Yes Normal accommodation reflex present Cognition (Neuro): normal cognition Speech: No Abnormal speech present Gait exam (Neuro): Normal gait present Motor exam (neuro): 5/5 motor strength present throughout Extrem Right upper extremity: full ROM; no cyanosis Left upper extremity: full ROM; no cyanosis Right lower extremity: no edema Left lower extremity: no edema Psych Appearance: grossly normal Mental Status: mental status grossly normal Affect: normal affect Attitude: cooperative Thought process: Normal thought process present Assessment and Plan Assessment & Plan (1) Annual physical exam: Code(s): Z00.00 - Encounter for general adult medical examination without abnormal findings (2) Lumbar spine pain: Code(s): M54.50 - Low back pain, unspecified Plan: Continues to have intermittent lower back and thoracic spine pain. X-rays have been done though waiting radiology report. She is not interested in physical therapy at this time though is interested in trying a anti-inflammatory as needed for her pain. Also considering pain management referral (3) Cervical cancer screening: Code(s): Z12.4 - Encounter for screening for malignant neoplasm of cervix Orders: Referrals DRIVER EDUCATION INSTRUCTOR Referral Z12.4 - Encounter for screening for malignant neoplasm of cervix Medications: New meloxicam 15 mg PO DAILY 14 days PRN 14 tabs 0RF pain (scale score 7-10) M54.50 - Low back pain, unspecified Coding Level of Care Code Est Pt Prev Care 18-39y(56022) Diagnoses Annual physical exam Z00.00 Lumbar spine pain M54.50 Cervical cancer screening Z12.4
== END 2023-09-25 11:27 | disposition home or self-care (01) ==
PROVIDERS: PCP Physician Assistant; Visit Provider Physician Assistant
DX: Z00.00 Encounter for general adult medical examination without abnormal findings (principal); M54.50 Low back pain, unspecified; Z12.4 Encounter for screening for malignant neoplasm of cervix
CPT/HCPCS: 99395

== ENCOUNTER 2024-01-08 14:56 | Outpatient (AMB) | payer OTHER, SELFPAY ==
[2024-01-08 14:58] VITALS: BMI 32.1
--- NOTE | 2024-01-08 14:58 | MHC.OFFVIS ---
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 No complaints. Last Pap/HPV? 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 [employer] Sexual orientation: Straight/Heterosexual Gender identity: Female Cognitive needs: No Hearing needs: No Vision needs: No Female Reproductive History Menstrual Age of Menarche: 12 Date of last menstrual period: 12/24/23 control method: permanent sterilization Total pregnancies: 2 Full term: 2 Number of Living Children: 2 Review of Systems Const All systems reviewed & are unremarkable except as noted in HPI and below Card Reports as per HPI Resp Reports as per HPI GI Reports as per HPI and Reports no additional complaints Reports as per HPI Physical Exam Vital Signs: BMI result Body Mass Index 32.1 Const General: cooperative, healthy appearing and comfortable Chest Chest palpation & inspection: normal inspection of the chest and normal palpation of entire chest wall Breast/axilla inspection: normal inspection of the breasts and normal inspection of the axillae Breast/axilla palpation: normal palpation of the breasts, normal palpation of the axillae and no axillary lymphadenopathy Resp Effort & Inspection: normal respiratory effort Auscultation: clear to auscultation bilaterally Percussion: percussion normal Cardio Palpation: normal PMI Rate: regular rate Rhythm: regular rhythm Heart sounds: no murmurs and no rubs Peripheral pulses: Peripheral pulses 2+ throughout GI Inspection: Yes normal to inspection Palpation (GI): Soft to palpation, nontender, no guarding, not rigid and No hepatosplenomegaly present Percussion: Yes normal to percussion Auscultation: normal bowel sounds Rectal Exam - Female: deferred General: Yes bladder normal to palpation External Female Exam: No lesion Speculum Exam - Vagina: normal appearance of the vagina, normal palpation, normal vaginal discharge and not erythematous Speculum Exam - Cervix: normal appearance of the cervix and normal palpation Bimanual exam- vagina & uterus: normal bimanual exam, normal palpation, bladder normal to palpation, consistency normal, normal palpation and enlarged Bimanual Exam- Adnexa, other: normal adnexae, no masses and no tenderness Assessment & Plan Assessment & Plan (1) Well woman exam: Code(s): Z01.419 - Encounter for gynecological examination (general) (routine) without abnormal findings Category: Medical Plan: Cotesting done. Counseled the patient about the recommended dietary allowance of 1000 mg of Calcium & 600 IU of vitamin D. The patient was instructed to perform monthly self-breast exams and to schedule an annual exam in a year; All questions answered and the patient verbalized understanding. Instructed the patient to schedule annual exam in a year (2) Enlarged uterus: Code(s): N85.2 - Hypertrophy of uterus Category: Medical Plan: Discussed with the patient the finding on pelvic exam, enlarged uterus. Pelvic ultrasound ordered. Instructions given the patient to schedule an ultrasound and a follow-up appointment within 2 weeks. All questions answered, the patient verbalized understanding Orders: Orders US pelvic and transvaginal Today N85.2 - Hypertrophy of uterus Coding Level of Care Code New Pt Prev Care 18-39yr([id number] Diagnoses Well woman exam Z01.419 Enlarged uterus N85.2
== END 2024-01-08 15:49 | disposition home or self-care (01) ==
LOC: HO.HWS 14:56
PROVIDERS: PCP Physician Assistant; Visit Provider Obstetrics & Gynecology
DX: Z01.419 Encounter for gynecological examination (general) (routine) without abnormal findings (principal); N85.2 Hypertrophy of uterus
CPT/HCPCS: 99395

== ENCOUNTER 2024-01-08 14:56 | Outpatient (REF) | payer OTHER, SELFPAY ==
[2024-01-23 13:40] LABS: HPV 16,18/45 See PAP report
== END 2024-01-08 14:57 | disposition home or self-care (01) ==
LOC: HO.LNP 14:56
PROVIDERS: PCP Physician Assistant; Visit Provider Obstetrics & Gynecology
DX: Z01.419 Encounter for gynecological examination (general) (routine) without abnormal findings (principal); Z11.51 Encounter for screening for human papillomavirus (HPV)
CPT/HCPCS: 87624; 88175

== ENCOUNTER 2024-01-13 15:32 | Outpatient (REF) | payer OTHER, SELFPAY | END 2024-01-13 15:33 | disposition home or self-care (01) | LOC: HO.US 15:32 | PROVIDERS: PCP Physician Assistant; Visit Provider Obstetrics & Gynecology | DX: N85.2 Hypertrophy of uterus (principal) | CPT/HCPCS: 76830; 76856 ==

== ENCOUNTER → 2024-01-13 15:35 | Outpatient (BNV) | payer OTHER, SELFPAY | PROVIDERS: PCP Physician Assistant; Visit Provider Radiology Diagnostic Radiology | DX: D25.9 Leiomyoma of uterus, unspecified (principal) | CPT/HCPCS: 76830; 76856 ==

== ENCOUNTER 2024-02-24 12:52 | Outpatient (REF) | payer OTHER, SELFPAY | END 2024-02-24 12:53 | disposition home or self-care (01) | LOC: HO.LNP 12:52 | PROVIDERS: PCP Physician Assistant; Visit Provider Obstetrics & Gynecology | DX: N93.9 Abnormal uterine and vaginal bleeding, unspecified (principal) | CPT/HCPCS: 58100; 81025; 88305 ==

== ENCOUNTER 2024-02-24 12:52 | Outpatient (AMB) | payer OTHER, SELFPAY ==
--- NOTE | 2024-02-24 12:52 | MHC.OFFVIS ---
Intake Visit Reasons: US Follow up Audit Senior Associate: Audit Senior Associate Present (Radha) Accompanied by: Daughter Allergies No Known Allergies Allergy (Verified 02/24/24 12:54) HPI Comments Details: Presenting for pelvic ultrasound follow-up. Pelvic ultrasound was done on 01/13/24, was recently read on 02/15/2024. Pelvic ultrasound showed the following: Uterus: The uterus is anteverted and measures 11.9 x 7.4 x 7.8 cm. There is a large hypoechoic lesion in the body of the uterus measuring 7.8 x 6.1 x 7.4 cm suggestive of fibroid. There is a smaller hypoechoic lesion in the anterior upper body of uterus measuring 1.4 x 1.0 x 1.0 cm likely a second fibroid. The double wall endometrial thickness is 13 mm. The uterus is smooth in contour and has normal myometrial echogenicity. No visible fibroid. Adnexa: Both ovaries are visualized. There is normal color flow to the adnexa. There is no ovarian torsion. There is no pelvic ascites or fluid collection. Right ovary measures 3.3 x 1.5 x 2.7 cm. Volume 6.8 Left ovary measures 4.0 x 1.5 x 3.1 cm. 9.7 The patient is complaining of heavier menstrual cycles associated with passage of blood clots and pelvic cramping over the last year Last co testing was done a month ago was negative PFSH Surgical History Hx of appendectomy Hx of tubal ligation Family History Maternal Grandmother Diabetes Maternal Grandfather Lung cancer Social History Household Members: Spouse and Children Housing: House Alcohol intake: current Alcohol intake frequency: holidays/special occasions only Patient Tobacco Use Status: Current someday Tobacco user Tobacco use type: Smokeless Tobacco e-Cigarette/Vaping Use: Currently Using service: No Current occupational status: employed 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 [employer] Sexual orientation: Straight/Heterosexual Gender identity: Female Cognitive needs: No Hearing needs: No Vision needs: No Female Reproductive History Menstrual Age of Menarche: 12 Review of Systems Const All systems reviewed & are unremarkable except as noted in HPI and below Reports as per HPI and Reports no additional complaints GI Reports no additional complaints Reports no additional complaints Office Procedures Endometrial Biopsy Details: The patient was counseled regarding the indication and benefits of endometrial sampling to rule out endometrial pathology including not limited to endometrial hyperplasia or endometrial cancer and others; The alternatives (Either do nothing vs. hysteroscopy D&C) & the risks were discussed with the patient including but not limited: pain, uterine perforation, bleeding, infection, possible injury to bladder, bowel, ureter, possible need for blood transfusion with all its possible risks. The patient verbalized understanding all questions answered and signed consent. Urine test done in the office was negative The patient was placed into the dorsal lithotomy position; a speculum was inserted in the vagina. Using aseptic technique for the procedure, the cervix was cleansed with Betadine. The anterior lip of the cervix was grasped with a single tooth tenaculum. The uterus was sounded to 11 cm with a 4 mm Pipelle was used. Tissues samples were obtained and placed in formalin, in a patient labeled container and sent to the pathology department. At the end of the procedure, there was minimal bleeding noted The patient tolerated the procedure well and was discharged in good condition with the following instructions: Nothing in the vagina until the bleeding stops. No sex until the bleeding stops, to call if any of the following occurs: fever (>100.4), flu-like symptoms, abdominal pain, heavy bleeding, four smelling vaginal discharge. The patient was instructed to schedule a Follow up appointment in 2 weeks to discuss pathology results of the biopsy and treatment options. This note was generated with a voice recognition program. Some errors may have been overlooked during the review of this note. Sometimes these errors may affect the content or meaning of a given sentence. [id number] Biopsy Assessment & Plan Assessment & Plan (1) Uterine myoma: Code(s): D25.9 - Leiomyoma of uterus, unspecified Category: Medical Plan: Discussed with the patient the results of the ultrasound and the size of the myomas. Discussed with the patient risk of myosarcoma and symptoms that are caused by myomas including but not limited to pelvic pain, pressure symptoms, abnormal uterine bleeding. In addition discussed with the patient options of treatment for myomas including: Serial ultrasounds periodically to follow-up on the size of the myoma while targeting the treatment against fibroids related symptoms ( control pills, Mirena IUD, progesterone treatment, GnRH agonist/antagonist, uterine artery embolization or endometrial ablation) versus surgical treatment including hysterectomy and or myomectomy. All pros and cons, risks and benefits of all options were discussed with the patient. The patient understands that delay in surgical treatment in case of myosarcoma can affect her prognosis, after further discussion, the patient decided to think about it and get back to us next visit (2) Abnormal uterine bleeding: Code(s): N93.9 - Abnormal uterine and vaginal bleeding, unspecified Category: Medical Plan: GC and chlamydia taken CBC, TSH, HCG ordered. Discussed with the patient the different causes of abnormal bleeding including thyroid disorders, uterine and ovarian pathology, endometrial hyperplasia, carcinoma and other potential causes. Discussed with the patient the work up including CBC (to r/o anemia), TSH, pelvic Ultrasound, endometrial biopsy to r/o endometrial pathology. EMB done, see procedure note. All questions answered and the patient verbalized understanding. Orders: Orders TSH reflex Free T4 Today N93.9 - Abnormal uterine and vaginal bleeding, unspecified AMB Endometrial Biopsy Today N93.9 - Abnormal uterine and vaginal bleeding, unspecified Complete Blood Count no Diff Today N93.9 - Abnormal uterine and vaginal bleeding, unspecified HCG Quantitative Today N93.9 - Abnormal uterine and vaginal bleeding, unspecified Coding Level of Care Code Est Pt Level 3 (46632) Procedure Only Diagnoses Uterine myoma D25.9 Abnormal uterine bleeding N93.9 CPT Codes Endometrial Biopsy - CPT: 45654-[id number] Biopsy ([id number])
== END 2024-02-24 13:17 | disposition home or self-care (01) ==
PROVIDERS: PCP Physician Assistant; Visit Provider Obstetrics & Gynecology
DX: D25.9 Leiomyoma of uterus, unspecified (principal); N93.9 Abnormal uterine and vaginal bleeding, unspecified; Z32.02 Encounter for pregnancy test, result negative
CPT/HCPCS: 58100; 99213

== ENCOUNTER 2024-02-24 13:24 | Outpatient (REF) | payer OTHER, SELFPAY ==
[2024-02-24 14:46] LABS: Hematocrit 34.4 % (37.0-47.0); Hemoglobin 10.8 g/dl (12.0-16.0); Mean Corpuscular HGB Conc 31.4 g/dl (31.0-35.0); Mean Corpuscular Hemoglobin 26.7 pg (27.0-33.0); Mean Corpuscular Volume 84.9 fL (80.0-98.0); Mean Platelet Volume 10.3 fL (9.4-12.3); Platelet Count 378 X10*3/uL (160-400); Red Blood Count 4.05 X10*6/uL (4.20-5.50); Red Cell Distribution Width 14.7 % (11.0-16.0); White Blood Count 10.4 X10*3/uL (4.8-10.8)
[2024-02-24 16:18] LABS: HCG Quantitative < 2 mIU/mL; TSH reflex Free T4 1.88 uIU/mL (0.32-4.0)
[2024-02-27 01:32] LABS: TS Negative Control Passed; TS Panel A 1; TS Panel B 0; TS Positive Control Passed; TSpotTB Negative (Negative)
== END 2024-02-24 13:25 | disposition home or self-care (01) ==
LOC: HO.LAB 13:24
PROVIDERS: Absent Provider Obstetrics & Gynecology; PCP Physician Assistant; Visit Provider Physician Assistant
DX: N93.9 Abnormal uterine and vaginal bleeding, unspecified (principal); Z11.1 Encounter for screening for respiratory tuberculosis
CPT/HCPCS: 36415; 84443; 84702; 85027; 86481

== ENCOUNTER 2024-02-26 15:10 | Outpatient (AMB) | payer OTHER, SELFPAY ==
--- NOTE | 2024-02-26 15:23 | A.OFFVIS_ITS ---
Vital Signs 02/26/24 15:24 Height 5 ft 5 in Weight 193 lb BMI 32.1 BP 122/86 Intake Visit Reasons: EMB results/pre op Medical Coding Technician: Medical Coding Technician Present Allergies No Known Allergies Allergy (Verified 02/24/24 12:54) Is last menstrual period known: Yes Last menstrual period: 12/17/19 Post menopausal: No Patient : No Do you need a note to return to daycare/school/sports/work: Yes (for surgery on saturday) HPI Comments Details: The patient is presenting after endometrial biopsy. The patient has no complaints, no vaginal bleeding, no feverishness chills or abdominal pain. The endometrial biopsy pathology report showed the following: Secretory endometrium; small fragment with features of endometrial polyp; no atypia identified PFSH Surgical History Hx of appendectomy Hx of tubal ligation Family History Maternal Grandmother Diabetes Maternal Grandfather Lung cancer Social History Household Members: Spouse and Children Housing: House Alcohol intake: current Alcohol intake frequency: holidays/special occasions only Patient Tobacco Use Status: Current someday Tobacco user Tobacco use type: Smokeless Tobacco e-Cigarette/Vaping Use: Currently Using service: No Current occupational status: employed 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 [employer] Sexual orientation: Straight/Heterosexual Gender identity: Female Cognitive needs: No Hearing needs: No Vision needs: No Female Reproductive History Menstrual Age of Menarche: 12 Date of last menstrual period: 12/17/19 Total pregnancies: 2 Full term: 2 Review of Systems Card Reports as per HPI and Reports no additional complaints Resp Reports as per HPI and Reports no additional complaints GI Reports as per HPI and Reports no additional complaints Reports as per HPI Physical Exam Vital Signs: Last Vital Signs BP 122/86 02/26/24 15:24 BMI result Body Mass Index 32.1 Const General: cooperative, healthy appearing and comfortable Resp Effort & Inspection: normal respiratory effort Auscultation: clear to auscultation bilaterally Percussion: percussion normal Cardio Palpation: normal PMI Rate: regular rate Rhythm: regular rhythm Heart sounds: no murmurs and no rubs Peripheral pulses: Peripheral pulses 2+ throughout GI Inspection: Yes normal to inspection Palpation (GI): Soft to palpation, nontender, no guarding, not rigid and No hepatosplenomegaly present Percussion: Yes normal to percussion Auscultation: normal bowel sounds Rectal Exam - Female: deferred Assessment & Plan Assessment & Plan (1) Abnormal uterine bleeding: Comment: Endometrial polyp by EMB pathology Code(s): N93.9 - Abnormal uterine and vaginal bleeding, unspecified Category: Medical Plan: Discussed with the patient the results of the endometrial pathology showing fragments of endometrial polyp, recommended hysteroscopy D&C possible polypectomy/myomectomy. Discussed with the patient the procedure , all benefits and risks including but not limited to inability to complete the procedure , insufficient endometrial tissue for a complete evaluation of the endometrial cavity , bleeding, infection, possible need for blood transfusion with all its risk ( HIV,syphilis, Hepatitis, anaphylaxis shock, others..), injury to bladder, rectum, possible need for laparoscopy/laparotomy or hysterectomy. The patient verbalized understanding and signed the consent. Instructions given the patient to stay NPO after midnight the day prior to the procedure and to take only the specific medication (s) discussed the morning of the surgical procedure and to schedule a 2 week postoperative appointment Coding Level of Care Code Est Pt Level 3 (95675) Diagnoses Abnormal uterine bleeding N93.9
[2024-02-26 15:24] VITALS: BP 122/86; BMI 32.1
== END 2024-02-26 15:45 | disposition home or self-care (01) ==
LOC: HO.HWS 15:10
PROVIDERS: PCP Physician Assistant; Visit Provider Obstetrics & Gynecology
DX: N93.9 Abnormal uterine and vaginal bleeding, unspecified (principal)
CPT/HCPCS: 99213

== ENCOUNTER 2024-04-02 15:00 | Outpatient (AMB) | payer OTHER, SELFPAY ==
--- NOTE | 2024-04-02 15:03 | A.OFFVIS_ITS ---
Intake Visit Reasons: post op Elementary School Band Director Required: Yes Elementary School Band Director Language: Hairmasters Manager Services: Elementary School Band Director Present (in person) Elementary School Band Director Name: MICHAELLE Gillette Information Interpreted: non-clinical & clinical Spray Blender: Spray Blender Present (MICHAELLE Gillette) Accompanied by: Self / Same As Patient Allergies No Known Allergies Allergy (Verified 04/02/24 15:05) HPI Comments Details: The patient is presenting post hysteroscopy D&C no complaints minimal vaginal bleeding no feverishness chills or abdominal pain. The pathology showed the following: A. Endometrium, polyp, biopsy: Early secretory endometrium; negative for atypia, hyperplasia or malignancy. B. Endometrium, curettage: Fragments of early secretory endometrium; negative for atypia, hyperplasia or malignancy The following workup was done.: H&H= 10.8/34.4 TSH, hCG, GC and chlamydia were negative. Endometrial biopsy pathology showed the following: Secretory endometrium; small fragment with features of endometrial polyp; no atypia identified Co testing was done in 01/11 was negative. Pelvic ultrasound showed the following: Uterus: The uterus is anteverted and measures 11.9 x 7.4 x 7.8 cm. There is a large hypoechoic lesion in the body of the uterus measuring 7.8 x 6.1 x 7.4 cm suggestive of fibroid. There is a smaller hypoechoic lesion in the anterior upper body of uterus measuring 1.4 x 1.0 x 1.0 cm likely a second fibroid. The double wall endometrial thickness is 13 mm. The uterus is smooth in contour and has normal myometrial echogenicity. No visible fibroid. Adnexa: Both ovaries are visualized. There is normal color flow to the adnexa. There is no ovarian torsion. There is no pelvic ascites or fluid collection. Right ovary measures 3.3 x 1.5 x 2.7 cm. Volume 6.8 Left ovary measures 4.0 x 1.5 x 3.1 cm. 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 [email or web address] Sexual orientation: Straight/Heterosexual Gender identity: Female Cognitive needs: No Hearing needs: No Vision needs: No Female Reproductive History Menstrual Age of Menarche: 12 Review of Systems Const All systems reviewed & are unremarkable except as noted in HPI and below Reports as per HPI and Reports no additional complaints GI Reports no additional complaints Reports no additional complaints Assessment & Plan Assessment & Plan (1) Abnormal uterine bleeding: Code(s): N93.9 - Abnormal uterine and vaginal bleeding, unspecified Category: Medical Plan: Discussed with the patient the results of the work up done and options of treatment including Lysteda, BCP's, Mirena IUD, endometrial ablation and hysterectomy. All pros, cons, risks and benefits if each option was discussed with the patient and the patient decided to think about it and get back to us. All questions answered the patient verbalized understanding. (2) Uterine myoma: Code(s): D25.9 - Leiomyoma of uterus, unspecified Category: Medical Plan: Discussed with the patient the findings on pelvic ultrasound & the risk of myosarcoma; discussed with the patient the options of treatment including expectant management versus hysterectomy; the pros and cons, risks benefits of each approach were discussed with the patient including the fact that in cases of myosarcoma, surgical treatment can lead to early diagnosis and positively affects the prognosis; after further discussion, the patient decided to proceed with expectant management. Will repeat pelvic ultrasound periodically. Instructions given to patient to call in case any of the following occurs: pressure symptoms, abnormal uterine bleeding, pelvic pain; and to schedule a six-months pelvic ultrasound (order placed) and a follow-up appointment . All questions answered, the patient verbalized understanding and agreed with the plan . Orders: Orders US pelvic and transvaginal 6 Months D25.9 - Leiomyoma of uterus, unspecified Coding Level of Care Code Est Pt Level 3 (99225) Diagnoses Abnormal uterine bleeding N93.9 Uterine myoma D25.9
--- OUTSIDE RECORDS SUMMARY | 2024-04-02 15:03 | XMS_ITS | Clinical Summary ---
Author Organization [employer] Address [address] [place] [address] [address] [place] [address] Care Team Providers Care Pit Tanner Name Role Phone Kaylee Aaron NP Primary Care Provider [phone] Social History Tobacco Use Types Packs/Day Years Used Date Smoking Tobacco: Never Assessed Comments Unknown Sex and Gender Information Value Date Recorded Sex Assigned at Female 12/18/2021 10:16 AM EDT Legal Sex Female 10:16 AM EDT Gender Identity Female 12/18/2021 10:16 AM EDT Sexual Orientation Straight 12/18/2021 10 :16 AM EDT Last Filed Vital Signs Vital Sign Reading Time Taken Comments Blood Pressure 112/70 04/20/2021 12:03 AM EST Pulse 84 04/20/2021 12:03 AM EST Temperature - - Respiratory Rate - - Oxygen Saturation - - Inhaled Oxygen Concentration - - Weight 64.7 kg (142 lb 9.6 oz) 04/20/2021 12:03 AM EST Height 169 cm (5' 6.54 ) 04/20/2021 12:03 AM EST Body Mass Index 22.64 04/20/2021 12:03 AM EST Plan of Treatment Health Maintenance Due Date Last Done Comments Depression Screening 1985 SDOH Screening 1985 Alcohol/Substance Use Screening 1997 Tobacco Screening 1997 Family Planning (PISQ) 2000 Hepatitis B Vaccines (1 of 3 - 19+ 3-dose series) 2004 Pap Smear 08/04/2023 08/03/2020 COVID-19 Vaccine (2023-2 5 season) 2023 07/07/2020, 06/09/2020 Influenza Vaccine (#1) 2023 Cervical Cancer Screening 08/03/2025 HPV/Cotest 08/03/2025 08/03/2020 DTaP/Tdap/Td Vaccines (2 - T d or Tdap) 07/20/2030 07/20/2020 Zoster Vaccines (1 of 2) 2035 RSV Patients and Patients Aged 60 years or older (1 - 1-dose 75+ series) 2060 HIV Screening Completed 07/21/2020 Hepatitis C Screening Completed 07/21/2020 HIB Vaccines Aged Out No longer eligi ble based on patient's age to complete this topic HPV Vaccines Aged Out No longer eligi ble based on patient's age to complete this topic Hepatitis A Vaccines Aged Out No long er eligible based on patient's age to complete this topic IPV Vaccines Aged Out No longer eligi ble based on patient's age to complete this topic Meningococcal Vaccine Aged Out No zuleyma shashank eligible based on patient's age to complete this topic Pneumococcal Vaccine: Pediatrics (0 to 5 Years) and At-Risk Patients (6 to 49) Years) Aged Out No longer eligible b ased on patient's age to complete this topic RSV under 20 months Aged Out No longe r eligible based on patient's age to complete this topic Rotavirus Vaccines Aged Out No longer eligible based on patient's age to complete this topic Procedures Procedure Name Priority Date/Time Associated Diagnosis Comments HPV MRNA E6/E7 Routine 08/03/2020 12:00 AM EDT THINPREP PAP Routine 08/03/2020 12:00 AM EDT ZZZ HISTORICAL HEPATITIS C AB W/REFL TO HCV RNA, QN, PCR Routine 07/21/2020 11:24 AM EDT HIV 1/2 ANTIGEN/ANTIBODY, FOURTH GENERATION W/RFL Routine 07/21/2020 11:24 AM EDT from Last 3 Months or Most Recently Relevant to Health Maintenance Results * THINPREP PAP (08/03/2020 12:00 AM EDT) Clinical Information: None given [facility] COMMENT SEE COMMENT [facility] Comment: EXPLANATORY NOTE: ? The Pap is a screening test for cervical cancer. It is ?? not a diagnostic test and is subject to false negative ?? and false positive results. It is most reliable when a ?? satisfactory sample, regularly obtained, is submitted ?? with relevant clinical findings and history, and when ?? the Pap result is evaluated along with historic and ?? current clinical information. ?? Outreach Consultant : SEE COMMENT [facility] Comment: GSG, CT(ASCP) CT screening location: [address] ??[id number] Interpretation/R esult: Negative for intraepithelial lesion or malignancy. [facility] LMP: NONE [facility] Prev. BX: NONE [facility] Prev. PAP: NONE [facility]IV[facility] SOURCE: None given [facility] Statement Of Adequacy: SEE COMMENT [facility] Comment: Satisfactory for evaluation. Endocervical/transformation zone component present. 08/03/2020 Shayy Gaspar NP LAB PATHOLOGY ORDERABLES Final Result [facility] [address] * HPV mRNA E6/E7 (08/03/2020 12:00 AM EDT) HPV nRNA E6/E7 Not Detected Not Detected [facility] Comment: Methodology: Script Editor-Mediated Amplification This assay detects E6/E7 viral messenger RNA (mRNA) from 14 high-risk HPV types (16,18,31,33,35,39,45,51,52,56,58,59,66,68). ? The analytical performance characteristics of this assay have been determined by [employer]. The modifications have not been cleared or approved by the FDA. This assay has been validated pursuant to the CLIA regulations and is used for clinical purposes. ?? For additional information, please refer to http://education.[employer]/faq/QKN951r4 (This link if provided for information/ educational purposes only.) 08/03/2020 Shayy Gaspar NP LAB BLOOD ORDERABLES Final Res ult Performing Organization Address [facility] Phone Number [facility] [address] * HEPATITIS C AB W/REFL TO HCV RNA, QN, PCR (07/21/2020 11:24 AM EDT) HEPATITIS C ANTIBODY NON-REACT NINFA NON-REACT NINFA [facility] INDEX 0.01 <1.00 [facility] Comment: ?? HCV antibody was non-reactive. There is no laboratory ?? evidence of HCV infection. ?? In most cases, no further action is required. However, if recent HCV exposure is suspected, a test for HCV RNA (test code 47306) is suggested. ?? For additional information please refer to http://carpooling.com.[employer]/faq/GCL82v0 (This link is being provided for informational/ educational purposes only.) ?? 07/21/2020 11:2 4 AM EDT Shayy Gaspar BRAND MARKETING COORDINATOR HISTORICAL/NON ORDERABLE LABS Final Result Performing Organization Address [facility] Phone Number [facility] [address] * HIV 1/2 ANTIGEN/ANTIBODY,FOURTH GENERATION W/RFL (07/21/2020 11:24 AM EDT) HIV-1/2 ANTIGEN AND ANTIBODIES, 4TH GENERATION W/ REFLEX NON-REACT NINFA NON-REACT NINFA [facility] Comment: HIV-1 antigen and HIV-1/HIV-2 antibodies were not detected. There is no laboratory evidence of HIV infection. ?? PLEASE NOTE: This information has been disclosed to you from records whose confidentiality may be protected by state law. ??If your state requires such protection, then the state law prohibits you from making any further disclosure of the information without the specific written consent of the person to whom it pertains, or as otherwise permitted by law. A general authorization for the release of medical or other information is NOT sufficient for this purpose. ? For additional information please refer to http://education.[employer]ua.Knowrom/faq/HWB044 (This link is being provided for informational/ educational purposes only.) ? The performance of this assay has not been clinically validated in patients less than 2 years old. ?? 07/21/2020 11:2 4 AM EDT us Shayy Gaspar NP LAB BLOOD ORDERABLES Final Res ult [facility] Critical access hospital [address] from Last 3 Months or Most Recently Relevant to Health Maintenance Insurance [employer] C3 Care Teams Pit Tanner Relationship Specialty Start Date End Date Kaylee Aaron NP [address] [place] [id number] PCP - General Family Medicine 08/21/23
== END 2024-04-02 15:20 | disposition home or self-care (01) ==
LOC: HO.HWS 15:00
PROVIDERS: PCP Physician Assistant; Visit Provider Obstetrics & Gynecology
DX: N93.9 Abnormal uterine and vaginal bleeding, unspecified (principal); D25.9 Leiomyoma of uterus, unspecified
CPT/HCPCS: 99213

== ENCOUNTER → 2024-04-02 15:00 | Outpatient (BNVA) | payer OTHER, SELFPAY | PROVIDERS: PCP Physician Assistant; Visit Provider Obstetrics & Gynecology | DX: Z71.2 Person consulting for explanation of examination or test findings (principal); N93.9 Abnormal uterine and vaginal bleeding, unspecified; D25.9 Leiomyoma of uterus, unspecified | CPT/HCPCS: 99212 ==

== ENCOUNTER 2024-09-29 14:17 | Outpatient (REF) | payer OTHER, SELFPAY ==
--- NOTE | ~2024-09-29 | US_ITS ---
EXAMINATION: US PELVIS CLINICAL INFORMATION: Uterine fibroid. COMPARISON: January 13, 2024. Correlated to CT abdomen and pelvis dated March 17, 2022. TECHNIQUE: Ultrasound of the pelvis is performed using both transabdominal and transvaginal transducers along with Doppler. Transvaginal imaging is performed due to inadequate visualization transabdominally. FINDINGS: Uterus: The uterus is anteversion flexion and measures 14 x 9 x 10 cm. The double wall endometrial thickness is 2 mm. Heterogeneous nodular morphology pattern throughout the uterine fibroid there is a 10 cm heterogeneous soft tissue lesion in the body of the uterus. Nabothian cyst in the cervix.. Adnexa: Both ovaries are visualized. There is normal color flow to the adnexa. There is no ovarian torsion. There is no pelvic ascites or fluid collection. Right ovary measures 4 x 2 x 4 cm. Volume: 13 cc. Left ovary measures 3 x 1 x 3 cm. Volume: 5.1 cc. US/US pelvic and transvaginal IMPRESSION: Multiple uterine fibroids, largest measures 10 cm. No ovarian torsion. Electronically signed by: Dallas Trimble MD 09/29/2024 03:39 PM EDT
--- OUTSIDE RECORDS SUMMARY | 2024-09-29 15:12 | XMS_ITS | Clinical Summary ---
Author Organization [employer] Address [address] [place] [address] [address] [place] [address] Care Team Providers Care Shift Lab Technician Name Role Phone Unavailable Primary Care Provider Unavailabl e Social History Tobacco Use Types Packs/Day Years [...] Comments Depression Screening 1985 SDOH Screening 1985 Disability Screening 1985 Alcohol/Substance Use Screening 1997 Tobacco Screening 1997 Family Planning (PISQ) 2000 HPV Vaccines (1 - 3-dose series) 2000 Hepatitis B Vaccines (1 of 3 - 19+ 3-dose series) 2004 Pap Smear 08/04/2023 08/03/2020 COVID-19 Vaccine ( - 2024-2 5 season) 2023 07/07/2020, 06/09/2020 Influenza Vaccine (#1) 2024 Cervical Cancer Screening 08/03/2025 HPV/Cotest 08/03/2025 08/03/2020 [...] patient's age to complete this topic Meningococcal B Vaccine Aged Out No l onger eligible based on patient's age to complete this topic Meningococcal Vaccine Aged Out No zuleyma shashank eligible based on patient's age to complete this topic Pneumococcal Vaccine: Pediatrics (0 to 5 Years) and At-Risk Patients (6 to 49) Years Aged Out No longer eligible b ased [...] [facility] Comment: EXPLANATORY NOTE: The Pap is a screening test for cervical cancer. It is not a diagnostic test and is subject to false negative and false positive results. It is most reliable when a satisfactory sample, regularly obtained, is submitted with relevant clinical findings and history, and when the Pap result is evaluated along with historic and current clinical information. Assistant Restaurant General Manager : SEE COMMENT [facility] Comment: GSG, CT(ASCP) CT screening location: [place] [address] Interpretation/R esult: Negative for intraepithelial lesion or malignancy. [facility] LMP: NONE GIVEN [facility] Prev. BX: NONE [facility]IV[facility] Prev. PAP: NONE GIVEN [facility] SOURCE: None given [facility] Statement Of Adequacy: SEE COMMENT [facility] Comment: Satisfactory for evaluation. Endocervical/transformation zone component present. 08/03/2020 Shayy Gaspar NP LAB PATHOLOGY ORDERABLES Final Result [facility] [address] * HPV mRNA E6/E7 (08/03/2020 12:00 AM EDT) HPV nRNA E6/E7 Not Detected Not Detected [facility] Comment: Methodology: Stripping Cutter And Winder-Mediated Amplification This assay detects E6/E7 viral messenger RNA (mRNA) from 14 high-risk HPV types (16,18,31,33,35,39,45,51,52,56,58,59,66,68). The analytical performance characteristics of this assay have been determined by [employer]. The modifications have not been cleared or approved by the FDA. This assay has been validated pursuant to the CLIA regulations and is used for clinical purposes. For additional information, please refer to http://education.[employer]/faq/XAW667h1 (This link if provided for information/ educational purposes only.) 08/03/2020 Shayy Gaspar NP LAB BLOOD ORDERABLES Final Res ult Performing Organization Address [facility] Co de Phone Number [facility] [address] * HEPATITIS C AB W/REFL TO HCV RNA, QN, PCR (07/21/2020 11:24 AM EDT) HEPATITIS C ANTIBODY NON-REACT NINFA NON-REACT NINFA [facility] INDEX 0.01 <1.00 [facility] Comment: HCV antibody was non-reactive. There is no laboratory evidence of HCV infection. In most cases, no further action is required. However, if recent HCV exposure is suspected, a test for HCV RNA (test code 91474) is suggested. For additional information please refer to http://[employer].TestCred/faq/BWM06v6 (This link is being provided for informational/ educational purposes only.) 07/21/2020 11:2 4 AM EDT Shayy Gaspar EXCEL ANALYST HISTORICAL/NON ORDERABLE LABS Final Result Performing Organization Address [facility] Phone Number [facility] [address] * HIV 1/2 ANTIGEN/ANTIBODY,FOURTH GENERATION W/RFL (07/21/2020 11:24 AM EDT) HIV-1/2 ANTIGEN AND ANTIBODIES, 4TH GENERATION W/ REFLEX NON-REACT NINFA NON-REACT NINFA [facility] Comment: HIV-1 antigen and HIV-1/HIV-2 antibodies were not detected. There is no laboratory evidence of HIV infection. PLEASE NOTE: This information has been disclosed to you from records whose confidentiality may be protected by state law. If your state requires such protection, then the state law prohibits you from making any further disclosure of the information without the specific written consent of the person to whom it pertains, or as otherwise permitted by law. A general authorization for the release of medical or other information is NOT sufficient for this purpose. For additional information please refer to http://[employer].TestCred/faq/WPM674 (This link is being provided for informational/ educational purposes only.) The performance of this assay has not been clinically validated in patients less than 2 years old. 07/21/2020 11:2 4 AM EDT us Shayy Gaspar NP LAB BLOOD ORDERABLES Final Res ult [facility] [address] from Last 3 Months or Most Recently Relevant to Health Maintenance Insurance [employer] C3
== END 2024-09-29 14:18 | disposition home or self-care (01) ==
LOC: HO.US 14:17
PROVIDERS: PCP Physician Assistant; Visit Provider Obstetrics & Gynecology
DX: D25.9 Leiomyoma of uterus, unspecified (principal)
CPT/HCPCS: 76830; 76856

== ENCOUNTER → 2024-09-29 14:19 | Outpatient (BNV) | payer OTHER, SELFPAY | PROVIDERS: PCP Physician Assistant; Visit Provider Radiology Diagnostic Radiology | DX: D25.9 Leiomyoma of uterus, unspecified (principal) | CPT/HCPCS: 76830; 76856 ==

== ENCOUNTER 2024-10-01 14:22 | Outpatient (AMB) | payer OTHER, SELFPAY ==
--- NOTE | 2024-10-01 14:22 | MHC.OFFVIS ---
Intake Visit Reasons: ultrasound results Allergies No Known Allergies Allergy (Verified 04/02/24 15:05) HPI Comments Details: Presenting for ultrasound follow-up done on 09/30/2024 which showed the following: Uterus: The uterus is anteversion flexion and measures 14 x 9 x 10 cm. The double wall endometrial thickness is 2 mm. Heterogeneous nodular morphology pattern throughout the uterine fibroid there is a 10 cm heterogeneous soft tissue lesion in the body of the uterus. Nabothian cyst in the cervix.. Adnexa: Both ovaries are visualized. There is normal color flow to the adnexa. There is no ovarian torsion. There is no pelvic ascites or fluid collection. Right ovary measures 4 x 2 x 4 cm. Volume: 13 cc. Left ovary measures 3 x 1 x 3 cm. Volume: 5.1 cc. 01/13/2024 pelvic ultrasound showed the following: Uterus: The uterus is anteverted and measures 11.9 x 7.4 x 7.8 cm. There is a large hypoechoic lesion in the body of the uterus measuring 7.8 x 6.1 x 7.4 cm suggestive of fibroid. There is a smaller hypoechoic lesion in the anterior upper body of uterus measuring 1.4 x 1.0 x 1.0 cm likely a second fibroid. The double wall endometrial thickness is 13 mm. The uterus is smooth in contour and has normal myometrial echogenicity. No visible fibroid. Adnexa: Both ovaries are visualized. There is normal color flow to the adnexa. There is no ovarian torsion. There is no pelvic ascites or fluid collection. Right ovary measures 3.3 x 1.5 x 2.7 cm. Volume 6.8 Left ovary measures 4.0 x 1.5 x 3.1 cm. 9.7 The patient is complaining of pelvic pressure and pain Last H&H in 03/14 was 10.8/34.4 Last co testing in 01/11 was negative Last EMB in 03/14 showed Denice endometrium with no evidence of endometrial hyperplasia and/or malignancy PFSH Surgical History Hx of appendectomy Hx of tubal ligation Family History Maternal Grandmother Diabetes Maternal Grandfather Lung cancer Social History Household Members: Spouse and Children Housing: House Alcohol intake: current Alcohol intake frequency: holidays/special occasions only Patient Tobacco Use Status: Current everyday Tobacco user Tobacco use type: Smokeless Tobacco e-Cigarette/Vaping Use: Currently Using service: No Current occupational status: employed 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 [employer] Sexual orientation: Straight/Heterosexual Gender identity: Female Cognitive needs: No Hearing needs: No Vision needs: No Female Reproductive History Menstrual Age of Menarche: 12 Review of Systems Const All systems reviewed & are unremarkable except as noted in HPI and below Reports as per HPI and Reports no additional complaints GI Reports no additional complaints Reports no additional complaints Telehealth Telehealth Telehealth Platform: [facility] Location of provider rendering services: practice address Location of patient: address on file Patient Identification confirmed using: Name, : Yes Telehealth method: video Patient verbally consented to treatment: Yes Patient verbally consented to billing insurance company: Yes Patient informed of any privacy concerns related to visit: Yes Minutes spent on Phone/Video with Pt.: 7 Assessment & Plan Assessment & Plan (1) Uterine myoma: Code(s): D25.9 - Leiomyoma of uterus, unspecified Category: Medical Plan: CBC ordered Discussed with the patient the findings on pelvic ultrasound & the risk of myosarcoma; in addition reviewed with the patient that malignancy and pre malignancy cannot be ruled out without hysterectomy for pathological evaluation ; furthermore, explained to the patient the limitation of pelvic ultrasound and endometrial biopsy in the setting. Discussed with the patient the typical symptoms that are caused by myomas including but not limited to pelvic pain, pressure symptoms, abnormal uterine bleeding. In addition discussed with the patient options of treatment for myomas including: Serial ultrasounds periodically to follow-up on the size of the myoma while targeting the treatment against fibroids related symptoms ( control pills, Mirena IUD, progesterone treatment, GnRH agonist/antagonist, uterine artery embolization or endometrial ablation) versus surgical treatment including hysterectomy or myomectomy. All pros and cons, risks and benefits of all options were discussed with the patient. The patient decided to proceed with definitive surgical management, hysterectomy. Discussed with the patient the different types of hysterectomies including, vaginal, laparoscopic assisted vaginal, robotic assisted laparoscopic,& abdominal with BSO. All pros, cons, r/b of each approach were discussed the patient including evidence that morbidity is less and recovery is shorter with minimally invasive approaches to hysterectomy. Discussed with the patient the lack of availability of the robot DaVinci robot and/or minimally invasive hotel assistant manager specialist at [facility]. Will refer to [facility] minimally invasive boarding room fixer surgery. Instructed the patient to call our office back in case a referral appointment is not scheduled, missed or canceled so that we will assist on rescheduling another appointment, the patient verbalized understanding agreed with the plan. I spent a total of 20 minutes reviewing the chart, talking to the patient via video and documenting in the medical record. Orders: Orders Complete Blood Count no Diff Today D25.9 - Leiomyoma of uterus, unspecified Coding Level of Care Code Tele Est Pt Level 3 (61920) Diagnoses Uterine myoma D25.9
--- OUTSIDE RECORDS SUMMARY | 2024-10-01 15:05 | XMS_ITS | Clinical Summary ---
Author Organization [employer] Address [address] [place] [address] [address] [place] [address] Care Team Providers Care Real Estate Salesperson Name Role Phone Unavailable Primary Care Provider [...] along with historic and current clinical information. Drug Department Worker : SEE COMMENT [facility] Comment: GSG, CT(ASCP) CT screening location: [place] [address] Interpretation/R esult: Negative for intraepithelial lesion or malignancy. [facility] LMP: NONE GIVEN [facility] Prev. BX: NONE [facility]IVEN [facility] Prev. PAP: NONE GIVEN [facility] SOURCE: None given [facility] Statement Of Adequacy: SEE COMMENT [facility] Comment: Satisfactory for evaluation. Endocervical/transformation zone component present. 08/03/2020 Shayy Gaspar NP LAB PATHOLOGY ORDERABLES Final Result [facility] [address] * HPV mRNA E6/E7 (08/03/2020 12:00 AM EDT) HPV nRNA E6/E7 Not Detected Not Detected [facility] Comment: Methodology: Type Copyist-Mediated Amplification This assay detects E6/E7 viral messenger RNA (mRNA) from 14 high-risk HPV types (16,18,31,33,35,39,45,51,52,56,58,59,66,68). The analytical performance characteristics of this assay have been determined by [employer] The modifications have not been cleared or approved by the FDA. This assay has been validated pursuant to the CLIA regulations and is used for clinical purposes. For additional information, please refer to http://education.[employer]!/faq/LEU207r4 (This link if provided for information/ educational purposes only.) 08/03/2020 Shayy Gaspar NP LAB BLOOD ORDERABLES Final Res ult Performing Organization Address [facility] Co de Phone Number [facility] [address] * HEPATITIS C AB W/REFL TO HCV RNA, QN, PCR (07/21/2020 11:24 AM EDT) HEPATITIS C ANTIBODY NON-REACT NINFA NON-REACT NINFA [facility] INDEX 0.01 <1.00 [facility] Comment: HCV antibody was non-reactive. There is no laboratory evidence of HCV infection. In most cases, no further action is required. However, if recent HCV exposure is suspected, a test for HCV RNA (test code 75770) is suggested. For additional information please refer to http://[employer]/faq/YOY82a6 (This link is being provided for informational/ educational purposes only.) 07/21/2020 11:2 4 AM EDT Shayy Gaspar VINEYARD TENDER HISTORICAL/NON ORDERABLE LABS Final Result Performing Organization Address [facility] Phone Number [facility] [address] * HIV 1/2 ANTIGEN/ANTIBODY,FOURTH GENERATION W/RFL (07/21/2020 11:24 AM EDT) HIV-1/2 ANTIGEN AND ANTIBODIES, 4TH GENERATION W/ REFLEX NON-REACT NINFA NON-REACT NINFA [facility] Comment: HIV-1 antigen and HIV-1/HIV-2 [...] purpose. For additional information please refer to http://[employer]/faq/ZBW323 (This link is being provided for informational/ educational purposes only.) The performance of this assay has not been clinically validated in patients less than 2 years old. 07/21/2020 11:2 4 AM EDT us Shayy Gaspar NP LAB BLOOD ORDERABLES Final Res ult [facility] [address] from Last 3 Months or Most Recently Relevant to Health Maintenance Insurance [employer] C3
== END 2024-10-01 14:48 | disposition home or self-care (01) ==
LOC: HO.HWS 14:22
PROVIDERS: PCP Physician Assistant; Visit Provider Obstetrics & Gynecology
DX: D25.9 Leiomyoma of uterus, unspecified (principal)
CPT/HCPCS: 99213

== ENCOUNTER 2024-10-08 11:08 | Outpatient (REF) | payer OTHER, SELFPAY ==
[2024-10-08 11:56] LABS: Hematocrit 31.1 % (37.0-47.0); Hemoglobin 10.0 g/dl (12.0-16.0); Mean Corpuscular HGB Conc 32.2 g/dl (31.0-35.0); Mean Corpuscular Hemoglobin 25.4 pg (27.0-33.0); Mean Corpuscular Volume 79.1 fL (80.0-98.0); NRBC Abs Auto 0.000 X10*3/uL (0.0-0.012); NRBC Pct Auto 0.0 /100WBC (0.0-0.2); Platelet Count 358 X10*3/uL (160-400); Red Blood Count 3.93 X10*6/uL (4.20-5.50); White Blood Count 6.7 X10*3/uL (4.8-10.8)
--- OUTSIDE RECORDS SUMMARY | 2024-10-08 12:54 | XMS_ITS | Clinical Summary ---
Author Organization [employer] Address [address] [place] [address] [address] [place] [address] Care Team Providers Care Water Project Engineer Name Role Phone Unavailable Primary Care Provider [...] along with historic and current clinical information. Applied Exercise Physiologist : SEE COMMENT [facility] Comment: GSG, CT(ASCP) CT screening location: [place] [address] Interpretation/R esult: Negative for intraepithelial lesion or malignancy. [facility] LMP: NONE [facility]IV[facility] Prev. BX: NONE [facility]IVEN [facility] Prev. PAP: NONE [facility]IVEN [facility] SOURCE: None given [facility] Statement Of Adequacy: SEE COMMENT [facility] Comment: Satisfactory for evaluation. Endocervical/transformation zone component present. 08/03/2020 Shayy Gaspar NP LAB PATHOLOGY ORDERABLES Final Result [facility] [address] * HPV mRNA E6/E7 (08/03/2020 12:00 AM EDT) HPV nRNA E6/E7 Not Detected Not Detected [facility] Comment: Methodology: Technical Operator-Mediated Amplification This assay detects E6/E7 viral messenger RNA (mRNA) from 14 high-risk HPV types (16,18,31,33,35,39,45,51,52,56,58,59,66,68). The analytical performance characteristics of this assay have been determined by [employer]. The modifications have not been cleared or approved by the FDA. This assay has been validated pursuant to the CLIA regulations and is used for clinical purposes. For additional information, please refer to http://education.[employer]itrina/faq/UDJ010x8 (This link if provided for information/ educational purposes only.) 08/03/2020 Shayy Gaspar NP LAB BLOOD ORDERABLES Final Res ult Performing Organization Address [facility] Co de Phone Number [facility] [address] * HEPATITIS C AB W/REFL TO HCV RNA, QN, PCR (07/21/2020 11:24 AM EDT) HEPATITIS C ANTIBODY NON-REACT NINFA NON-REACT NINFA [facility] INDEX 0.01 <1.00 [facility] Comment: HCV antibody was non-reactive. There is no laboratory evidence of HCV infection. In most cases, no further action is required. However, if recent HCV exposure is suspected, a test for HCV RNA (test code 40025) is suggested. For additional information please refer to http://Flipkart.[employer]/faq/TGS13e5 (This link is being provided for informational/ educational purposes only.) 07/21/2020 11:2 4 AM EDT Shayy Gaspar PAPER INSERTER HISTORICAL/NON ORDERABLE LABS Final Result Performing Organization Address [facility] Phone Number [facility] [address] * HIV 1/2 ANTIGEN/ANTIBODY,FOURTH GENERATION W/RFL (07/21/2020 11:24 AM EDT) HIV-1/2 ANTIGEN AND ANTIBODIES, 4TH GENERATION W/ REFLEX NON-REACT NINFA NON-REACT NINFA [facility] Comment: HIV-1 antigen and HIV-1/HIV-2 [...] purpose. For additional information please refer to http://Flipkart.[employer]/faq/KYB995 (This link is being provided for informational/ educational purposes only.) The performance of this assay has not been clinically validated in patients less than 2 years old. 07/21/2020 11:2 4 AM EDT us Shayy Gaspar NP LAB BLOOD ORDERABLES Final Res ult [facility] [address] from Last 3 Months or Most Recently Relevant to Health Maintenance Insurance [employer]
== END 2024-10-08 11:09 | disposition home or self-care (01) ==
LOC: HO.LAB 11:08
PROVIDERS: PCP Physician Assistant; Visit Provider Obstetrics & Gynecology
DX: D25.9 Leiomyoma of uterus, unspecified (principal)
CPT/HCPCS: 36415; 85027

== ENCOUNTER 2024-11-16 07:59 | Emergency (ER) | payer OTHER, SELFPAY ==
--- NOTE | ~2024-11-16 | US_ITS ---
EXAMINATION: US PELVIS CLINICAL INFORMATION: Left lower quadrant pain, history of fibroids. COMPARISON: 09/29/2024, 01/13/2024. Correlation made with CT abdomen and pelvis 11/16/2028. TECHNIQUE: Ultrasound of the pelvis is performed using both transabdominal and transvaginal transducers along with Doppler. Transvaginal imaging is performed due to inadequate visualization transabdominally. FINDINGS: Uterus: The uterus is anteverted, retroflexed, and measures 13.7 x 8.8 x 9.7 cm. Cervix is normal in appearance with several nabothian cysts. The double wall endometrial thickness is 5 mm. There is a large fibroid encompassing the majority of the left posterior mid and proximal uterus, measuring 9.3 x 8.9 x 7.8 cm (previously 10.1 x 7.3 x 9.0 cm). Adnexa: Both ovaries are visualized. There is normal color flow to the adnexa. There is no ovarian torsion. There is trace free pelvic fluid, likely physiologic. There are no adnexal masses present. Right ovary measures 3.1 x 1.8 x 2.1 cm. Volume = 6.1 mL. Normal sonographic appearance. Left ovary measures 3.6 x 2.4 x 2.1 cm. Volume = 9.5 mL. Normal sonographic appearance. US/US pelvic ovarian doppler IMPRESSION: 1. There is no evidence of ovarian torsion or adnexal mass. The ovaries are normal. 2. There is a large fibroid encompassing the majority of the left posterior mid and proximal uterine segments, measuring 9.3 x 8.9 x 7.8 cm. This has been documented previously. 3. There is no endometrial thickening or abnormality. Electronically signed by: Shakeel Elizalde MD 11/16/2024 11:40 AM EDT
--- NOTE | ~2024-11-16 | US_ITS ---
EXAMINATION: US PELVIS CLINICAL INFORMATION: Left lower quadrant pain, history of fibroids. COMPARISON: 09/29/2024, 01/13/2024. Correlation made with CT abdomen and pelvis 11/16/2028. TECHNIQUE: Ultrasound of the pelvis is performed using both transabdominal and transvaginal transducers along with Doppler. Transvaginal imaging is performed due to inadequate visualization transabdominally. FINDINGS: Uterus: The uterus is anteverted, retroflexed, and measures 13.7 x 8.8 x 9.7 cm. Cervix is normal in appearance with several nabothian cysts. The double wall endometrial thickness is 5 mm. There is a large fibroid encompassing the majority of the left posterior mid and proximal uterus, measuring 9.3 x 8.9 x 7.8 cm (previously 10.1 x 7.3 x 9.0 cm). Adnexa: Both ovaries are visualized. There is normal color flow to the adnexa. There is no ovarian torsion. There is trace free pelvic fluid, likely physiologic. There are no adnexal masses present. Right ovary measures 3.1 x 1.8 x 2.1 cm. Volume = 6.1 mL. Normal sonographic appearance. Left ovary measures 3.6 x 2.4 x 2.1 cm. Volume = 9.5 mL. Normal sonographic appearance. US/US pelvic and transvaginal IMPRESSION: 1. There is no evidence of ovarian torsion or adnexal mass. The ovaries are normal. 2. There is a large fibroid encompassing the majority of the left posterior mid and proximal uterine segments, measuring 9.3 x 8.9 x 7.8 cm. This has been documented previously. 3. There is no endometrial thickening or abnormality. Electronically signed by: Shakeel Elizalde MD 11/16/2024 11:40 AM EDT
--- NOTE | ~2024-11-16 | CT_ITS ---
EXAMINATION: CT ABDOMEN AND PELVIS WITHOUT CONTRAST CLINICAL INFORMATION: Left lower quadrant abdominal pain. COMPARISON: 03/09/2022, 02/16/2022 Correlation made with pelvic ultrasound 09/29/2024 and 01/13/2024. TECHNIQUE: Multidetector volumetric imaging was performed from the superior aspect of the liver through the pubic symphysis. Sagittal and coronal reformatted images were obtained on the technologist's workstation. This CT examination was performed using dose optimization techniques as appropriate, variously including the following: *Automated exposure control *Adjustment of mA and/or kV according to patient size (this includes techniques or standardized protocols for targeted exams where dose is matched to indication/reason for exam; i.e. extremities or head) *Use of iterative reconstruction technique FINDINGS: LUNG BASES: Lung bases are clear. Heart size is normal. There are no effusions. LIVER, GALLBLADDER, AND BILIARY TREE: The unenhanced liver is normal in size, shape, and attenuation. No focal hepatic lesion or biliary ductal dilatation is present. The gallbladder is unremarkable with no evidence of radiopaque gallstones, gallbladder wall thickening, or obvious pericholecystic inflammatory changes. PANCREAS: Unremarkable. SPLEEN: Unremarkable. ADRENAL GLANDS: Unremarkable. KIDNEYS AND URETERS: The kidneys are normal in size, shape, and attenuation. No hydronephrosis, or hydroureter. No perinephric stranding. 4 mm nonobstructing calculus in the left kidney mid to inferior pole. Two punctate 2 mm calculi in the inferior pole. Bilateral extrarenal pelves. BLADDER: Poorly distended. Grossly normal. GASTROINTESTINAL TRACT: The appendix is surgically absent. The stomach is decompressed. The duodenum demonstrates a second segment diverticulum. The small bowel is normal in caliber and course. The colon is normal in caliber, course, and appearance without wall thickening or inflammation. There is no rectal abnormality. ABDOMINAL WALL: No significant hernia is appreciated. LYMPH NODES: Normal. VASCULAR: Unremarkable. PELVIC VISCERA: There is a large leiomyoma of the uterus encompassing the majority of the body and lower uterine segment, oriented left posterior, measuring approximately 9.1 x 10.2 x 9.7 cm. There are no adnexal abnormalities. Trace free pelvic fluid is likely physiologic., OSSEOUS STRUCTURES: There are no suspicious lytic or blastic bone lesions. CT/CT abdomen pelvis wo IV con IMPRESSION: 1. No acute findings in the abdomen or pelvis. 2. Large uterine fibroid as discussed. Electronically signed by: Shakeel Elizalde MD 11/16/2024 09:46 AM EDT RP
[2024-11-16 08:06] VITALS: BMI 28.5
[2024-11-16 08:10] VITALS: BP 153/87; PULSE 86; RESP 18; TEMP 36.7; O2SAT 98
--- NOTE | 2024-11-16 08:20 | ED.ABDPAIN ---
HPI - Abdominal Pain General Chief Complaint: Abdominal Pain Stated Complaint: abd pain, vomiting Time Seen by Provider: 11/16/24 08:07 Source: patient and family Mode of arrival: ambulatory Limitations: no limitations History of Present Illness ED Provider: DR. Llanes HPI narrative: 39-year-old female came in for evaluation of left-sided abdominal pain that is started suddenly this morning while patient is getting ready to go to work, pain is associated with nausea and 3 times vomiting, patient had this pain in the past and was told in ovarian cyst. No dysuria, no frequency urination, no hematuria, last bowel movement was last night and was normal, passing flatus. past intra-abdominal surgery significant for appendectomy and tubal ligation. No vaginal bleed, no vaginal discharge, no chance of . Related Data Previous Rx's ?Medication ?Instructions ?Recorded betamethasone dipropionate 0.05 % 1 appl topical DAILY skin 07/24/23 topical cream irritation 15 days #45 grams meloxicam 15 mg tablet 15 mg PO DAILY PRN pain (scale 09/25/23 score 7-10) 14 days #14 tabs ferrous sulfate 325 mg (65 mg 325 mg PO BID 30 days #60 tabs 11/11/24 iron) tablet Allergies Allergy/AdvReac Type Severity Reaction Status Date / Time No Known Allergies Allergy Verified 11/16/24 08:09 Review of Systems Review of Systems All other systems are reviewed and are negative Constitutional: Reports as per HPI and Reports no additional constitutional complaints Eyes: Reports as per HPI and Reports no additional eye complaints Reports system reviewed and no additional complaints, except as documented Cardiovascular: Reports as per HPI and Reports no additional cardiovascular complaints Respiratory: Reports as per HPI and Reports no additional respiratory complaints Gastrointestinal: Reports as per HPI and Reports no additional gastrointestinal complaints Genitourinary: Reports no additional female genitourinary complaints Musculoskeletal: Reports no additional musculoskeletal complaints Skin/Breast: Reports system reviewed and no additional complaints, except as docu Psychiatric: Reports no additional psychiatric complaints Endocrine: Reports no additional endocrine complaints Hematologic/Lymphatic: Reports no additional hematologic/lymphatic complaints Allergic/Immunologic: Reports no additional allergic/immunologic complaints Reports system reviewed and no additional complaints, except as documented and Reports Abnormal speech present PMFSH Past Medical History Surgical History Hx of appendectomy Hx of tubal ligation Family History Family History Maternal Grandmother Diabetes Maternal Grandfather Lung cancer Social History Social History Household Members: Spouse and Children Housing: House Alcohol intake: current Alcohol intake frequency: holidays/special occasions only Patient Tobacco Use Status: Current everyday Tobacco user Tobacco use type: Smokeless Tobacco Smoked in Last 30 Days: Yes e-Cigarette/Vaping Use: Currently Using Use of substances other than those prescribed or required for medical reasons: No Advance Directives: No Advance Directives Information Provided: No service: No Current occupational status: employed 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 Blood pressure elevated. Heart rate normal. Respiratory rate normal. Temperature normal. Oxygen saturation normal. Appearance: Alert. Oriented X3. No acute distress. Head: Normal external exam. Normocephalic. Atraumatic. No Keith signs noted. No raccoon eyes noted Eyes: PERRLA. EOMI. Conjunctiva and sclera normal. Eyelids normal. ENT: TM's Normal. Pharynx normal. Uvula midline. Moist mucous membranes. No trismus noted. No drooling noted. No muffled voice noted. Neck: Normal inspection. Neck supple. FROM. No adenopathy. Thyroid Normal. No meningeal signs. No neck mass noted. CVS: Normal heart rate and rhythm. Heart sound normal. No murmurs noted. Pulses normal throughout. Respiratory: No respiratory distress. Painless inspiration. Breath sounds normal. No wheezes/rales/rhonchi noted. Chest nontender. No accessory muscle usage noted or decreased air movement noted. Abdomen: Soft , left lower quadrant abdominal tenderness, no guarding, no rebound tenderness. Bowel sounds normal in all 4 quadrants. No distention noted. No organomegaly noted. No visible injury noted. Back: No CVA tenderness. Full range of motion noted. Skin: Skin warm and dry. Normal skin color. Normal skin turgor. No rashes/lesions/lacerations noted. Extremities: No lower extremity edema. Extremities exhibit normal range of motion. Extremities nontender. Neuro: Oriented X 3. Cranial nerve exam: II-XII are grossly intact No motor deficit. No sensory deficit. Reflexes normal. Course Reevaluation(s) Reevaluation #1: Left-sided abdominal pain, patient feels slightly better, normal WBCs, negative ovarian abnormality including cyst or torsion on the ultrasound, CT abdomen pelvis is also unremarkable for acute intra abdominal pathology. Patient was instructed to take ibuprofen versus Tylenol if increased pain, Patient is aware of the fibroid uterus patient already follow-up with Dr. Cummings for her condition and is scheduled to have hysterectomy at [facility]. Time: 14:00 Medical Decision Making Differential Diagnosis Differential Diagnoses: The differential diagnosis associated with the presentation includes ( Colitis, diverticulitis, pancreatitis, ovarian cyst, ovarian torsion, electrolyte derangement, severe anemia, pyelonephritis, UTI, kidney stones.) Admission/Observation Consideration of admission/observation: Escalation of care including admission/observation considered Lab Data MDM Lab Attestation statement: I reviewed the patient's lab results. 11/16/24 08:30 11/16/24 08:30 Labs: Lab Results 11/16/24 11/16/24 Range/Units 08:30 09:21 WBC 6.8 (4.8-10.8) X10*3/uL RBC 4.22 (4.20-5.50) X10*6/uL Hgb 11.6 L (12.0-16.0) g/dl Hct 36.2 L (37.0-47.0) % MCV 85.8 (80.0-98.0) fL MCH 27.5 (27.0-33.0) pg MCHC 32.0 (31.0-35.0) g/dl RDW 19.1 H (11.0-16.0) % Plt Count 283 (160-400) X10*3/uL MPV 10.2 (9.4-12.3) fL Immature Gran % (Auto) 0.3 (0.0-0.4) % Neut % (Auto) 53.6 (45-73) % Lymph % (Auto) 38.9 (20-40) % [place] % (Auto) 5.9 (2-11) % Eos % (Auto) 0.7 (0-4) % Baso % (Auto) 0.6 (0-2) % Lymph # (Auto) 2.7 (1.2-4.9) X10*3/uL [place] # (Auto) 0.4 (0.1-1.2) X10*3/uL Eos # (Auto) 0.1 (0.0-0.4) X10*3/uL Baso # (Auto) 0.0 (0.0-0.2) X10*3/uL Abs Immat Gran (auto) 0.02 (0.00-0.03) X10*3/uL Absolute Neuts (auto) 3.7 (2.0-8.3) x10*3/uL Absolute Nucleated RBC 0.000 (0.0-0.012) X10*3/uL Nucleated RBC % (auto) 0.0 (0.0-0.2) /100WBC Sodium 139 (135-145) mmol/L Potassium 4.0 (3.3-5.1) mmol/L Chloride 110 H (96-108) mmol/L Carbon Dioxide 25 (22-29) mmol/L Anion Gap 8 L (12-20) BUN 11 (9-16) mg/dL Creatinine 0.66 (0.5-1.4) mg/dL Estim Creat Clear Calc 122.1 Estimated GFR > 60 Random Glucose 97 (60-115) mg/dL Calcium 8.5 (8.4-10.2) mg/dL Total Bilirubin 0.4 (0.0-1.0) mg/dL Direct Bilirubin 0.1 (0.0-0.5) mg/dL AST 19 (5-31) U/L ALT 8 (0-31) U/L Alkaline Phosphatase 78 (39-117) U/L Total Protein 6.6 (6.5-8.0) g/dL Albumin 4.0 (3.5-5.0) g/dL Lipase 17 (8-78) U/L Beta HCG, Quant < 2 mIU/mL Urine Color Yellow Urine Appearance Clear Urine pH 6.5 (5.0-9.0) Ur Specific Riparius 1.010 (1.005-1.025) Urine Protein Negative (Neg-Trace) mg/dL Urine Glucose (UA) Negative (Negative) mg/dL Urine Ketones Negative (Negative) mg/dL Urine Blood Negative (Negative) Urine Nitrite Negative (Negative) Ur Leukocyte Esterase Negative (Negative) Independent Interpretation I performed an independent interpretation of an: Ultrasound ( Pelvic ultrasound:1. There is no evidence of ovarian torsion or adnexal mass. The ovaries are normal. 2. There is a large fibroid encompassing the majority of the left posterior mid and proximal uterine segments, measuring 9.3 x 8.9 x 7.8 cm. This has been documented previously. 3. There is no ) and CT Scan ( Abdomen pelvis:1. There is no evidence of ovarian torsion or adnexal mass. The ovaries are normal. 2. There is a large fibroid encompassing the majority of the left posterior mid and proximal uterine segments, measuring 9.3 x 8.9 x 7.8 cm. This has been documented previously. 3. There is no end) Radiology Impression Discussion of test interpretation with radiology: I have reviewed the radiologist's reading. Medications Administered Discontinued Medications Generic Name Dose Route Start Last Admin Trade Name Freq PRN Reason Stop Dose Admin Ketorolac Tromethamine 15 mg 11/16/24 08:16 11/16/24 08:34 Ketorolac Tromethamine 15 Mg/Ml Vial IVPUSH 11/16/24 08:17 15 mg ONCE ONE Administration Morphine Sulfate 2 mg 11/16/24 08:16 11/16/24 08:34 Morphine Sulfate 2 Mg/Ml Cartridge IVPUSH 11/16/24 08:17 2 mg ONCE ONE Administration Protocol Ondansetron HCl 4 mg 11/16/24 08:16 11/16/24 08:34 Ondansetron Hcl 4 Mg/2 Ml Vial IVPUSH 11/16/24 08:17 4 mg ONCE ONE Administration Discharge Plan Discharge Clinical Impression: Uterine fibroid, Abdominal pain Patient Disposition: Home, Self-Care Instructions: Uterine Fibroids (ED), Abdominal Pain (ED) Prescriptions: No Action ferrous sulfate 325 mg (65 mg iron) tablet 325 mg PO BID 30 Days Qty: 60 1RF betamethasone dipropionate 0.05 % cream 1 appl topical DAILY 15 Days Qty: 45 1RF meloxicam 15 mg tablet 15 mg PO DAILY PRN (Reason: pain (scale score 7-10)) 14 Days Qty: 14 0RF Referrals: Harley Martinez PA-C [Primary Care Provider, Internal Medicine] Bear Cummings MD [Physician, ACTIVITIES DIRECTOR SCOUTING] Stand Alone Forms: Work/School Release Interventions: ED Discharge Assessment Last Done: 11/16/24 14:16 Discharge Date/Time: 11/16/24 14:17 Print Language: Peruvian
[2024-11-16 08:41] LABS: MANUAL DIFF FLAG NO
[2024-11-16 08:48] LABS: Hematocrit 36.2 % (37.0-47.0); Hemoglobin 11.6 g/dl (12.0-16.0); Imm Gran Abs Auto 0.02 X10*3/uL (0.00-0.03); Imm Gran Pct Auto 0.3 % (0.0-0.4); Lymphocytes Absolute Auto 2.7 X10*3/uL (1.2-4.9); Mean Corpuscular HGB Conc 32.0 g/dl (31.0-35.0); Mean Corpuscular Hemoglobin 27.5 pg (27.0-33.0); Mean Corpuscular Volume 85.8 fL (80.0-98.0); NRBC Abs Auto 0.000 X10*3/uL (0.0-0.012); NRBC Pct Auto 0.0 /100WBC (0.0-0.2); Platelet Count 283 X10*3/uL (160-400); Red Blood Count 4.22 X10*6/uL (4.20-5.50); White Blood Count 6.8 X10*3/uL (4.8-10.8)
[2024-11-16 09:02] LABS: Alanine Aminotransferase 8 U/L (0-31); Albumin Level 4.0 g/dL (3.5-5.0); Alkaline Phosphatase 78 U/L (39-117); Anion Gap 8 (12-20); Aspartate Amino Transferase 19 U/L (5-31); Blood Urea Nitrogen 11 mg/dL (9-16); Calcium 8.5 mg/dL (8.4-10.2); Carbon Dioxide 25 mmol/L (22-29); Chloride 110 mmol/L (96-108); Creatinine Clr Calc Pharmacy 122.1; Estimated Glomerular Filt Rate > 60; Lipase 17 U/L (8-78); Potassium 4.0 mmol/L (3.3-5.1); Sodium 139 mmol/L (135-145); Total Protein 6.6 g/dL (6.5-8.0)
--- OUTSIDE RECORDS SUMMARY | 2024-11-16 09:12 | XMS_ITS | Clinical Summary ---
Author Organization [employer] Address [address] [place] [address] 7t [place] [address] Care Team Providers Care Disbursing Officer Name Role Phone Unavailable Primary Care Provider [...] 2004 Pap Smear 08/04/2023 08/03/2020 COVID-19 Vaccine (3 - 2025-2 6 season) 2024 07/07/2020, 06/09/2020 Influenza Vaccine (#1) 2024 Cervical [...] along with historic and current clinical information. 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 [facility] LMP: NONE GIVEN [facility] Prev. BX: NONE [facility]IVEN [facility] Prev. PAP: NONE [facility]IVEN [facility] SOURCE: None given [facility] Statement Of Adequacy: SEE COMMENT [facility] Comment: Satisfactory for evaluation. Endocervical/transformation zone component present. 08/03/2020 Shayy Gaspar NP LAB PATHOLOGY ORDERABLES Final Result [facility] [address] * HPV mRNA E6/E7 (08/03/2020 12:00 AM EDT) HPV nRNA E6/E7 Not Detected Not Detected [facility] Comment: Methodology: Radio Broadcaster-Mediated Amplification This assay detects E6/E7 viral messenger RNA (mRNA) from 14 high-risk HPV types (16,18,31,33,35,39,45,51,52,56,58,59,66,68). The analytical performance characteristics of this assay have been determined by [facility]. The modifications have not been cleared or approved by the FDA. This assay has been validated pursuant to the CLIA regulations and is used for clinical purposes. For additional information, please refer to http://education.[employer].[place]/faq/MEM183r3 (This link if provided for information/ educational purposes only.) 08/03/2020 Shayy Gaspar NP LAB BLOOD ORDERABLES Final Res ult Performing Organization Address [facility] Co de Phone Number [facility] [address] * HEPATITIS C AB W/REFL TO HCV RNA, QN, PCR (07/21/2020 11:24 AM EDT) HEPATITIS C ANTIBODY NON-REACT NINFA NON-REACT NINFA [facility] INDEX 0.01 <1.00 [facility] Comment: HCV antibody was non-reactive. There is no laboratory evidence of HCV infection. In most cases, no further action is required. However, if recent HCV exposure is suspected, a test for HCV RNA (test code 20314) is suggested. For additional information please refer to http://[email or web address]/faq/YOP17o5 (This link is being provided for informational/ educational purposes only.) 07/21/2020 11:2 4 AM EDT Shayy Gaspar COMPLAINT EVALUATION SUPERVISOR HISTORICAL/NON ORDERABLE LABS Final Result Performing Organization Address [facility] Phone Number [facility] [address] * HIV 1/2 ANTIGEN/ANTIBODY,FOURTH GENERATION W/RFL (07/21/2020 11:24 AM EDT) HIV-1/2 ANTIGEN AND ANTIBODIES, 4TH GENERATION W/ REFLEX NON-REACT NINFA NON-REACT NINFA [facility] Comment: HIV-1 antigen and HIV-1/HIV-2 [...] purpose. For additional information please refer to [email or web address]/faq/SZM686 (This link is being provided for informational/ educational purposes only.) The performance of this assay has not been clinically validated in patients less than 2 years old. 07/21/2020 11:2 4 AM EDT us Shayy Gaspar NP LAB BLOOD ORDERABLES Final Res ult [facility] [address] from Last 3 Months or Most Recently Relevant to Health Maintenance Insurance [employer]
[2024-11-16 09:28] LABS: Appearance Urine Clear; Glucose Urine UA Negative (Negative); PH 6.5 (5.0-9.0); Specific Gravity - Urine 1.010 (1.005-1.025)
--- NOTE | 2024-11-16 09:54 | PC.NURSE ---
Patient is a 39-year-old female came in for evaluation of left-sided abdominal pain that is started suddenly this morning while patient is getting ready to go to work, pain is associated with nausea and 3 times vomiting, patient had this pain in the past and was told in ovarian cyst. Patient alert and oriented, appears uncomfortable. Lungs clear bilat. Respirations even and non-labored. Abdomen soft with positive bowel sounds. Tenderness to left side of abdomen Positive pedal pulses with no edema.
[2024-11-16 11:32] VITALS: BP 138/75; PULSE 83; RESP 16; TEMP 36.6; O2SAT 98
[2024-11-16 14:16] VITALS: BP 138/75; PULSE 83; RESP 16; TEMP 36.6; O2SAT 98
== END 2024-11-16 14:17 | disposition home or self-care (01) ==
PROVIDERS: Emergency Provider Emergency Medicine; PCP Physician Assistant
DX: D25.9 Leiomyoma of uterus, unspecified (principal); R10.9 Unspecified abdominal pain
CPT/HCPCS: 36415; 74176; 76830; 76856; 80048; 80076; 81003; 83690; 84702; 85025; 93975; 96374; 96375; 99284; 99285; J1885; J2270; J2405

== ENCOUNTER → 2024-11-16 08:16 | Outpatient (BNV) | payer OTHER, SELFPAY | PROVIDERS: Emergency Provider Emergency Medicine; PCP Physician Assistant; Visit Provider Radiology Diagnostic Radiology | DX: D25.9 Leiomyoma of uterus, unspecified (principal) | CPT/HCPCS: 74176; 76830; 76856; 93975 ==

== ENCOUNTER 2025-02-11 19:24 | Emergency (ER) | payer OTHER, SELFPAY ==
[2025-02-11 19:34] VITALS: BP 160/79; PULSE 94; RESP 18; TEMP 36.8; O2SAT 98
--- NOTE | 2025-02-11 19:37 | ED_ITS ---
HPI - General Adult General Chief complaint: Dental/Oral Stated complaint: left side face pain & swelling Time Seen by Provider: 02/11/25 21:03 Source: patient Mode of arrival: ambulatory Limitations: no limitations History of Present Illness ED Provider: Shakeel DUENAS HPI narrative: The patient is a 39-year-old female (accompanied by daughter) presenting for evaluation of progressive facial swelling and dental pain. She was diagnosed with a dental infection on Saturday by her dentist and began amoxicillin the same day. Despite therapy, pain and swelling have worsened. Patient describes a ?ball? in the upper oral cavity that feels hard. She denies associated fever, vomiting, or other systemic symptoms. Last dose of ibuprofen was taken at 1500 today. No medication allergies. No recent dental work, however patient reports her dentist is planning to perform a root canal on the affected area this coming Saturday. Related Data Previous Rx's ?Medication ?Instructions ?Recorded betamethasone dipropionate 0.05 % 1 appl topical DAILY skin 07/24/23 topical cream irritation 15 days #45 grams meloxicam 15 mg tablet 15 mg PO DAILY PRN pain (sca le 09/25/23 score 7-10) 14 days #14 tabs ferrous sulfate 325 mg (65 mg 325 mg PO BID 30 days #6 0 tabs 11/11/24 iron) tablet acetaminophen 500 mg capsule 1,000 mg (2 x 500 mg) PO .q8 PRN 02/11/25 fever or pain #30 caps amoxicillin 875 mg-potassium 1 tab PO BID #14 tabs clavulanate 125 mg tablet ibuprofen 600 mg tablet 600 mg PO Q8H PRN fever or p ain 02/11/25 #30 tabs Allergies Allergy/AdvReac Type Severity Reaction Status Date / Time No Known Allergies Allergy Verified 02/11/25 19:36 Review of Systems 2 Review of Systems: Yes all other systems are reviewed and are negative PMFSH Past Medical History Surgical History Hx of appendectomy Hx of tubal ligation Family History Family History Maternal Grandmother Diabetes Maternal Grandfather Lung cancer Social History Social History Household Members: Spouse and Children Housing: House Alcohol intake: current Alcohol intake frequency: holidays/special occasions only Patient Tobacco Use Status: Current everyday Tobacco user Tobacco use type: Smokeless Tobacco e-Cigarette/Vaping Use: Currently Using Advance Directives: No Advance Directives Information Provided: No Do you have a plan to hurt others: No Plan service: No Current occupational status: employed Current occupation: [employer] on [employer] Sexual orientation: Straight/Heterosexual Gender identity: Female Cognitive needs: No Hearing needs: No Vision needs: No Physical Exam ED Vital Signs: Vital Signs - 24 hr 02/11/25 19:34 Temperature 98.2 F Pulse Rate 94 Respiratory Rate 18 Blood Pressure 160/79 H Pulse Oximetry 98 Oxygen Delivery Method Room Air BMI result Body Mass Index 30.0 CONSTITUTIONAL: The patient appears non-toxic, well nourished and in no acute distress. Vital signs as documented. HEAD: Atraumatic, normocephalic. EYES: EOMs grossly intact, pupils equal, conjunctiva clear, no exudate. ENT: Nares patent, no discharge. Airway patent, no audible stridor, ther is a 1 cm circular area of induration with centralized fluctuance consistent with abscess noted to the left aspect of the roof of her mouth, visible mucosa is otherwise pink and moist without other noted lesions. NECK: trachea is midline, no obvious masses or gross abnormalities. CHEST: Symmetric movement, normal appearance. LUNGS: Non-labored work of breathing. CARDIAC: No evidence of hypoperfusion. ABDOMEN: Nondistended, no obvious injury. : Deferred. EXTREMITIES: Moves all extremities spontaneously without reported pain. No obvious injury or deformity noted. NEURO: Alert and oriented x3, CN II-XII appear grossly intact. Cerebellar Functioning grossly intact. Speech clear and appropriate. SKIN: Warm, dry, color appropriate. No rashes or lesions noted. Course Course Course Narrative: This is a Rapid Medical Examination (RME) performed by Power Ramon PA-C in triage. Full HPI, ROS, assessment and treatment plan per primary provider in the Main ED. Hx: 39 yo F here for eval of dental infection to L upper teeth. seen at dentist 5 days ago, placed on amoxicillin which she is taking as directed. dental infection seems to be worsening, now has swelling to the left side of her face with a ball in her upper mouth. no fevers. taking motrin as needed without relief - last dose 1300 today. cannot sleep d/t pain. PE/vitals: abscess noted to lingua side of gingiva along teeth #13/14 involving hard pallet, noted swelling to left cheek, no trismus Plan: labs Procedures Abscess I/D Site: oral Side (if applicable): left Local Anesthetic: other anesthetic (Lollicaine Topical) Technique: needle aspiration Amount of fluid expressed (mL): 0.5 Sent for culture/gram staining?: No Irrigation: Yes (Gargles) Packing used?: none Medical Decision Making Medical Decision Making [facility] Narrative: 9:48 PM 02/11/2025 (Power DUENAS): The patient is a 39-year-old female (accompanied by daughter) presenting for evaluation of progressive facial swelling and dental pain. She was diagnosed with a dental infection on Saturday by her dentist and began amoxicillin the same day. Despite therapy, pain and swelling have worsened. Patient describes a ?ball? in the upper oral cavity that feels hard. She denies associated fever, vomiting, or other systemic symptoms. Last dose of ibuprofen was taken at 1500 today. No medication allergies. No recent dental work, however patient reports her dentist is planning to perform a root canal on the affected area this coming Saturday. On exam patient has a 1 cm circular area of induration with centralized fluctuance consistent with abscess noted to the left aspect of the roof of her mouth. No other acute findings. The area was excised by needle aspiration with removal of 0.5 cc of purulent material. The patient's antibiotic will be changed to Augmentin, patient will be treated with ibuprofen, Tylenol, and a single dose of oxycodone in the ED. The patient will be discharged to follow up with her dentist. Admission/Observation Consideration of admission/observation: Escalation of care including admission/observation considered Lab Data [facility] Lab Attestation statement: I reviewed the patient's lab results. 02/11/25 19:44 02/11/25 19:44 Labs: Lab Results 02/11/25 Range/Units 19:44 WBC 11.1 H (4.8-10.8) X10*3/uL RBC 4.00 L (4.20-5.50) X10*6/uL Hgb 12.1 (12.0-16.0) g/dl Hct 36.8 L (37.0-47.0) % MCV 92.0 (80.0-98.0) fL MCH 30.3 (27.0-33.0) pg MCHC 32.9 (31.0-35.0) g/dl RDW 12.7 (11.0-16.0) % Plt Count 312 (160-400) X10*3/uL MPV 9.5 (9.4-12.3) fL Immature Gran % (Auto) 0.3 (0.0-0.4) % Neut % (Auto) 62.0 (45-73) % Lymph % (Auto) 29.8 (20-40) % Garrett % (Auto) 6.3 (2-11) % Eos % (Auto) 1.2 (0-4) % Baso % (Auto) 0.4 (0-2) % Lymph # (Auto) 3.3 (1.2-4.9) X10*3/uL Garrett # (Auto) 0.7 (0.1-1.2) X10*3/uL Eos # (Auto) 0.1 (0.0-0.4) X10*3/uL Baso # (Auto) 0.1 (0.0-0.2) X10*3/uL Abs Immat Gran (auto) 0.03 (0.00-0.03) X10*3/uL Absolute Neuts (auto) 6.9 (2.0-8.3) x10*3/uL Absolute Nucleated RBC 0.000 (0.0-0.012) X10*3/uL Nucleated RBC % (auto) 0.0 (0.0-0.2) /100WBC Sodium 143 (135-145) mmol/L Potassium 4.5 (3.3-5.1) mmol/L Chloride 109 H (96-108) mmol/L Carbon Dioxide 24 (22-29) mmol/L Anion Gap 15 (12-20) BUN 15 (9-16) mg/dL Creatinine 0.76 (0.5-1.4) mg/dL Estim Creat Clear Calc 104.9 Estimated GFR > 60 Random Glucose 111 (60-115) mg/dL Calcium 9.5 D (8.4-10.2) mg/dL Total Bilirubin 0.2 (0.0-1.0) mg/dL AST 22 (5-31) U/L ALT 10 (0-31) U/L Alkaline Phosphatase 118 H (39-117) U/L Total Protein 7.3 (6.5-8.0) g/dL Albumin 4.4 (3.5-5.0) g/dL Discharge Plan Discharge Clinical Impression: Dental abscess Patient Disposition: Home, Self-Care Instructions: Dental Abscess (ED), Abscess Incision and Drainage (DC) Additional Instructions: Thank you for choosing [facility]'s Emergency Department for your care today. You were seen today for evaluation of dental pain. There was a dental abscess noted to the inside of the roof of your mouth, this area was incised with a needle and a moderate amount of pus was drained from the area. This should begin to improve your pain. We are changing your antibiotic from amoxicillin to Augmentin. Please take this as prescribed until finished. It is extremely important that you follow up with your dentist for definitive dental care at your appointment on Saturday. You should take alternating (staggered) doses of ibuprofen 600mg and Tylenol 1000mg every 4 hours as needed for any additional pain. Please return to the emergency department if you develop worsening pain, swelling, difficulty swallowing, difficulty breathing, fever over 100.4 which does not improve with Tylenol or ibuprofen, or any other concerning symptoms. Prescriptions: New acetaminophen 500 mg capsule 1,000 mg PO .q8 PRN (Reason: fever or pain) Qty: 30 0RF ibuprofen 600 mg tablet 600 mg PO Q8H PRN (Reason: fever or pain) Qty: 30 0RF amoxicillin-pot clavulanate 875-125 mg tablet 1 tab PO BID Qty: 14 0RF No Action ferrous sulfate 325 mg (65 mg iron) tablet 325 mg PO BID 30 Days Qty: 60 1RF betamethasone dipropionate 0.05 % cream 1 appl topical DAILY 15 Days Qty: 45 1RF meloxicam 15 mg tablet 15 mg PO DAILY PRN (Reason: pain (scale score 7-10)) 14 Days Qty: 14 0RF Referrals: Harley Martinez PA-C [Primary Care Provider, Internal Medicine] Clinical Impression: Dental abscess Print Language: Ukrainian
[2025-02-11 19:50] LABS: MANUAL DIFF FLAG NO
[2025-02-11 19:51] LABS: Hematocrit 36.8 % (37.0-47.0); Hemoglobin 12.1 g/dl (12.0-16.0); Imm Gran Abs Auto 0.03 X10*3/uL (0.00-0.03); Imm Gran Pct Auto 0.3 % (0.0-0.4); Lymphocytes Absolute Auto 3.3 X10*3/uL (1.2-4.9); Mean Corpuscular HGB Conc 32.9 g/dl (31.0-35.0); Mean Corpuscular Hemoglobin 30.3 pg (27.0-33.0); Mean Corpuscular Volume 92.0 fL (80.0-98.0); NRBC Abs Auto 0.000 X10*3/uL (0.0-0.012); NRBC Pct Auto 0.0 /100WBC (0.0-0.2); Platelet Count 312 X10*3/uL (160-400); Red Blood Count 4.00 X10*6/uL (4.20-5.50); White Blood Count 11.1 X10*3/uL (4.8-10.8)
[2025-02-11 20:07] LABS: Alanine Aminotransferase 10 U/L (0-31); Albumin Level 4.4 g/dL (3.5-5.0); Alkaline Phosphatase 118 U/L (39-117); Anion Gap 15 (12-20); Aspartate Amino Transferase 22 U/L (5-31); Blood Urea Nitrogen 15 mg/dL (9-16); Calcium 9.5 mg/dL (8.4-10.2); Carbon Dioxide 24 mmol/L (22-29); Chloride 109 mmol/L (96-108); Creatinine Clr Calc Pharmacy 104.9; Estimated Glomerular Filt Rate > 60; Potassium 4.5 mmol/L (3.3-5.1); Sodium 143 mmol/L (135-145); Total Protein 7.3 g/dL (6.5-8.0)
--- OUTSIDE RECORDS SUMMARY | 2025-02-11 21:14 | XMS_ITS | Clinical Summary ---
Author Organization [employer] Address [address] [place] [address] [address] [place] [address] Care Team Providers Care Marine Drafter Name Role Phone Unavailable Primary Care Provider [...] along with historic and current clinical information. Financial Cost Analyst : SEE COMMENT [facility] Comment: GSG, CT(ASCP) CT screening location: [place] [address] Interpretation/R esult: Negative for intraepithelial lesion or malignancy. [facility] LMP: NONE [facility]IV[facility] Prev. BX: NONE [facility] Prev. PAP: NONE [facility]IV[facility] SOURCE: None given [facility] Statement Of Adequacy: SEE COMMENT [facility] Comment: Satisfactory for evaluation. Endocervical/transformation zone component present. 08/03/2020 Shayy Gaspar NP LAB PATHOLOGY ORDERABLES Final Result [facility] [address] * HPV mRNA E6/E7 (08/03/2020 12:00 AM EDT) HPV nRNA E6/E7 Not Detected Not Detected [facility] Comment: Methodology: Health Therapist-Mediated Amplification This assay detects E6/E7 viral messenger RNA (mRNA) from 14 high-risk HPV types (16,18,31,33,35,39,45,51,52,56,58,59,66,68). The analytical performance characteristics of this assay have been determined by [employer]. The modifications have not been cleared or approved by the FDA. This assay has been validated pursuant to the CLIA regulations and is used for clinical purposes. For additional information, please refer to http://education.[employer]/faq/EWV152q7 (This link if provided for information/ educational purposes only.) 08/03/2020 Shayy Gaspar NP LAB BLOOD ORDERABLES Final Res ult Performing Organization Address [facility] Co de Phone Number [facility] [address] * HEPATITIS C AB W/REFL TO HCV RNA, QN, PCR (07/21/2020 11:24 AM EDT) HEPATITIS C ANTIBODY NON-REACT NINFA NON-REACT NINFA [facility] INDEX 0.01 <1.00 [facility] Comment: HCV antibody was non-reactive. There is no laboratory evidence of HCV infection. In most cases, no further action is required. However, if recent HCV exposure is suspected, a test for HCV RNA (test code 04424) is suggested. For additional information please refer to http://[email or web address] [place]/faq/CBC10j9 (This link is being provided for informational/ educational purposes only.) 07/21/2020 11:2 4 AM EDT Shayy Gaspar LOCKSTITCH BACK MAKER HISTORICAL/NON ORDERABLE LABS Final Result Performing Organization Address [facility] Phone Number [facility] [address] * HIV 1/2 ANTIGEN/ANTIBODY,FOURTH GENERATION W/RFL (07/21/2020 11:24 AM EDT) HIV-1/2 ANTIGEN AND ANTIBODIES, 4TH GENERATION W/ REFLEX NON-REACT NINFA NON-REACT NINFA [facility] Comment: HIV-1 antigen and HIV-1/HIV-2 [...] purpose. For additional information please refer to http://[email or web address] [email or web address]/YEM013 (This link is being provided for informational/ educational purposes only.) The performance of this assay has not been clinically validated in patients less than 2 years old. 07/21/2020 11:2 4 AM EDT us Shayy Gaspar NP LAB BLOOD ORDERABLES Final Res ult [facility] [address] from Last 3 Months or Most Recently Relevant to Health Maintenance Insurance [employer]
[2025-02-11] MEDS: oxyCODONE HCl Immed Release 5 MG TABLET 10 MG PO (22:34)
[2025-02-11 22:38] VITALS: BP 178/95; PULSE 84; RESP 16; TEMP 36.8; O2SAT 97
[2025-02-11 22:43] VITALS: BP 178/95; PULSE 84; RESP 16; TEMP 36.8; O2SAT 97
== END 2025-02-11 22:43 | disposition home or self-care (01) ==
PROVIDERS: Physician Assistant Medical; Emergency Provider Emergency Medicine; PCP Physician Assistant
DX: K04.7 Periapical abscess without sinus (principal)
CPT/HCPCS: 36415; 41800; 80053; 85025; 99284